=== PATIENT | female | born 1970 | race Caucasian/White ===

== ENCOUNTER 2018-01-12 03:02 | Emergency (ER) | payer OTHER ==
[2018-01-12] MEDS ORDERED: NA CHLORIDE 0.9% 1,000 ML ONE (04:20)
[2018-01-12 04:44] LABS: Absolute Lymphocytes (CBC) 2.2 K/uL (0.7-4.9); Absolute Monocytes 0.5 K/uL (0.1-1.3); Absolute Neutrophil 3.9 K/uL (1.8-8.0); Basophils % 0.8 % (0-1.3); Eosinophils % 0.1 % (0-4.4); Hematocrit 39.2 % (36.0-45.0); Lymphocytes % 33.4 % (15.3-44.8); MCH 26.3 pg (27.0-35.0); MCV 80.2 fL (80-100); MPV 7.7 fL (7.6-11.3); Monocytes % 7.5 % (3.3-12.3); RBC Red Blood Cell Count 4.89 M/uL (3.86-4.86)
[2018-01-12 04:47] LABS: Protime INR 0.94
[2018-01-12 04:50] LABS: Urine Blood NEGATIVE (NEG); Urine Glucose NEGATIVE (NEG); Urine Protein NEGATIVE (NEG); Urine Specific Gravity >1.030 (1.005-1.030); Urine pH 5.5 (5.0-7.0)
[2018-01-12 04:53] LABS: Bicarbonate 27 mEq/L (21-31); Glucose Level 87 mg/dL (65-120); Potassium 3.9 mEq/L (3.6-5.0); Sodium Level 135 mEq/L (135-145)
[2018-01-12 04:59] LABS: ALT/SGPT 24 IU/L (10-60); AST/SGOT 30 IU/L (10-42); Albumin 3.9 g/dL (3.2-5.5); Alkaline Phosphatase 93 IU/L (42-121); BUN Blood Urea Nitrogen 16 mg/dL (6-20); Bilirubin Direct < 0.1 mg/dL (0-0.2); Bilirubin Total 0.4 mg/dL (0.3-1.2); Creatine Phosphokinase 54 IU/L (22-269); Protein, Total 7.5 g/dL (6.0-8.3)
[2018-01-12 05:20] LABS: CKMB Creatine Kinase MB 1.1 ng/ml (0.3-4.0)
[2018-01-12 05:25] LABS: Anisocytosis 1+; Blood Morphology Comment NOTED (NOT SEEN); Platelet Estimate ADEQ; Urine White Blood Cell Casts OK
[2018-01-12] MEDS ORDERED: CEFTRIAXONE/SWI 1gm 1 GM/10 ML SYR ONE (05:35)
[2018-01-12 05:37] LABS: Lipase 21 U/L (22-51)
--- NOTE | 2018-01-12 07:25 | ER ---
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 Transition of care: patient was not received from another setting of care. Onset of symptoms was January 10, 2018. Risk Assessment: Do you want to hurt yourself or someone else? Patient reports no desire to harm self or others. Initial Sepsis Screen: Does the patient meet any 2 criteria? No. Patient's initial sepsis screen is negative. Does the patient have a suspected source of infection? No. Patient's initial sepsis screen is negative. Care prior to arrival: None. 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 - Social history:: Smoking status: Patient uses tobacco products, smokes one pack cigarettes per day. Patient/guardian denies using alcohol, street drugs. - Family history:: not pertinent. - Ebola Screening: : No symptoms or risks identified at this time. Screenin:16 Abuse screen: Denies threats or abuse. Denies injuries from another. Nutritional lp1 screening: No deficits noted. Tuberculosis screening: No symptoms or risk factors identified. Fall Risk None identified. Assessment: 03:30 General: Appears in no apparent distress. Behavior is calm, cooperative, appropriate lp1 for age. Pain: Complains of pain in right axilla Pain currently is 5 out of 10 on a pain scale. Neuro: Level of Consciousness is awake, alert, obeys commands, Oriented to person, place, time, situation. Cardiovascular: Patient's skin is warm and dry. Respiratory: Respiratory effort is even, unlabored. GI: Abdomen is non-distended. : No signs and/or symptoms were reported regarding the genitourinary system. EENT: No signs and/or symptoms were reported regarding the EENT system. Derm: Skin is pink, warm \\T\\ dry. Musculoskeletal: Circulation, motion, and sensation intact. 04:30 Reassessment: Patient appears in no apparent distress at this time. No changes from lp1 previously documented assessment. Patient and/or family updated on plan of care and expected duration. Pain level reassessed. 05:30 Reassessment: Patient appears in no apparent distress at this time. Patient is alert, lp1 oriented x 3, equal unlabored respirations, skin warm/dry/pink. Patient states pain when movement of right arm in certain motion Patient denies pain at this time. 06:30 Reassessment: Patient appears in no apparent distress at this time. No changes from lp1 previously documented assessment. Patient and/or family updated on plan of care and expected duration. Pain level reassessed. 07:15 Reassessment: Patient appears in no apparent distress at this time. Patient and/or hb family updated on plan of care and expected duration. Pain level reassessed. Patient is alert, oriented x 3, equal unlabored respirations, skin warm/dry/pink. Vital Signs: 03:27 BP 182 / 86; Pulse 63; Resp 18 S; Temp 97.1(O); Pulse Ox 97% on R/A; Weight 70.76 kg bb (R); Height 5 ft. 4 in. (162.56 cm) (R); Pain 4/10; 04:00 BP 144 / 69; Pulse 52; Resp 18; Pulse Ox 100% on R/A; lp1 05:00 BP 152 / 77; Pulse 57; Resp 18; Pulse Ox 99% on R/A; lp1 05:30 BP 144 / 75; Pulse 58; Resp 18; Pulse Ox 99% on R/A; lp1 06:38 BP 152 / 94; Pulse 52; Resp 18; Pulse Ox 100% ; lp1 07:30 BP 146 / 82; Pulse 50; Resp 16; Pulse Ox 100% on R/A; Pain 1/10; hb 03:27 Body Mass Index 26.78 (70.76 kg, 162.56 cm) bb ED Course: 03:04 Patient arrived in ED. es 03:25 Triage completed. bb 03:26 Donato Adams MD is Attending Physician. yara 03:27 Arm band placed on Patient placed in an exam room, on a stretcher, on pulse oximetry. bb 04:11 X-ray completed. Portable x-ray completed in exam room. Patient tolerated procedure kw well. 04:12 XRAY Chest (1 view) In Process Unspecified. EDMS 04:15 Hina Roach, RN is Primary Nurse. lp1 04:17 Patient has correct armband on for positive identification. Placed in gown. Pulse ox lp1 on. NIBP on. 04:30 Inserted saline lock: 22 gauge in left antecubital area, using aseptic technique. Blood lp1 collected. 05:53 CT Chest For PE Angio In Process Unspecified. EDMS 07:17 Valeria Banda MD is Referral Physician. yara 07:51 No provider procedures requiring assistance completed. IV discontinued, intact, hb bleeding controlled, No redness/swelling at site. Pressure dressing applied. Administered Medications: 04:34 Drug: NS 0.9% 1000 ml Route: IV; Rate: 1 bolus; Site: left antecubital; lp1 05:45 Follow up: IV Status: Completed infusion lp1 05:45 Drug: Rocephin - (cefTRIAXone) 1 grams Route: IVPB; Infused Over: 30 mins; Site: left lp1 antecubital; 06:30 Follow up: Response: No adverse reaction; IV Status: Completed infusion lp1 Outcome: 07:23 Discharge ordered by . yara 07:51 Discharged to home ambulatory. hb 07:51 Condition: stable 07:51 Discharge instructions given to patient, Instructed on discharge instructions, follow up and referral plans. medication usage, Demonstrated understanding of instructions, follow-up care, medications, Prescriptions given X 3. 07:56 Patient left the ED. hb Signatures: Dispatcher [employer] EDHI Donato Adams MD MD cha Salyer, Edna es Ballard, Brenda, RN RN Yesica Hawkins Laura, RN RN lp1 Malissa Mcguire, RN RN hb
--- NOTE | 2018-01-12 07:25 | EDPHYS ---
Physician Documentation [facility] Name: Nona Pond Age: 47 yrs Sex: Female : 1970 Arrival Date: 01/12/2018 Time: 03:04 Bed 20 Private MD: ED Physician Donato Adams HPI: 01/12 03:51 This 47 yrs old Female presents to ER via Ambulatory with complaints of PAIN yara UNDER ARM. 03:51 The patient or guardian reports chest pain that is located primarily in the substernal yara area. Onset: 2 day(s) ago. The pain does not radiate. Associated signs and symptoms: The patient has no apparent associated signs or symptoms. Modifying factors: The symptoms are alleviated by nothing. the symptoms are aggravated by nothing. Severity of pain: At its worst the pain was moderate. The patient has experienced similar episodes in the past, a few times. 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 - Social history:: Smoking status: Patient uses tobacco products, smokes one pack cigarettes per day. Patient/guardian denies using alcohol, street drugs. - Family history:: not pertinent. - Ebola Screening: : No symptoms or risks identified at this time. ROS: 03:51 Constitutional: Negative for fever, chills, and weight loss, Eyes: Negative for injury, yara pain, redness, and discharge, ENT: Negative for injury, pain, and discharge, Neck: Negative for injury, pain, and swelling, Respiratory: Negative for shortness of breath, cough, wheezing, and pleuritic chest pain, Abdomen/GI: Negative for abdominal pain, nausea, vomiting, diarrhea, and constipation, Back: Negative for injury and pain, : Negative for injury, bleeding, discharge, and swelling, MS/Extremity: Negative for injury and deformity, Skin: Negative for injury, rash, and discoloration, Neuro: Negative for headache, weakness, numbness, tingling, and seizure. 03:51 Cardiovascular: Positive for chest pain, of the right lateral posterior chest and right lateral anterior chest. Exam: 03:51 Constitutional: This is a well developed, well nourished patient who is awake, alert, yara and in no acute distress. Head/Face: Normocephalic, atraumatic. Eyes: Pupils equal round and reactive to light, extra-ocular motions intact. Lids and lashes normal. Conjunctiva and sclera are non-icteric and not injected. Cornea within normal limits. Periorbital areas with no swelling, redness, or edema. ENT: Nares patent. No nasal discharge, no septal abnormalities noted. Tympanic membranes are normal and external auditory canals are clear. Oropharynx with no redness, swelling, or masses, exudates, or evidence of obstruction, uvula midline. Mucous membranes moist. Neck: Trachea midline, no thyromegaly or masses palpated, and no cervical lymphadenopathy. Supple, full range of motion without nuchal rigidity, or vertebral point tenderness. No Meningismus. Cardiovascular: Regular rate and rhythm with a normal S1 and S2. No gallops, murmurs, or rubs. Normal PMI, no JVD. No pulse deficits. Respiratory: Lungs have equal breath sounds bilaterally, clear to auscultation and percussion. No rales, rhonchi or wheezes noted. No increased work of breathing, no retractions or nasal flaring. Abdomen/GI: Soft, non-tender, with normal bowel sounds. No distension or tympany. No guarding or rebound. No evidence of tenderness throughout. Back: No spinal tenderness. No costovertebral tenderness. Full range of motion. Skin: Warm, dry with normal turgor. Normal color with no rashes, no lesions, and no evidence of cellulitis. MS/ Extremity: Pulses equal, no cyanosis. Neurovascular intact. Full, normal range of motion. Neuro: Awake and alert, GCS 15, oriented to person, place, time, and situation. Cranial nerves II-XII grossly intact. Motor strength 5/5 in all extremities. Sensory grossly intact. Cerebellar exam normal. Normal gait. Psych: Awake, alert, with orientation to person, place and time. Behavior, mood, and affect are within normal limits. 03:51 Chest/axilla: Inspection: no acute changes, abrasion, abscess, cellulitis, of the right lateral posterior chest and right lateral anterior chest 03:54 Musculoskeletal/extremity: DVT Exam: No signs of deep vein thrombosis. no pain, no yara swelling, no tenderness, negative Homans' sign noted on exam, no appreciated bluish discoloration, no erythema, no increased warmth. Vital Signs: 03:27 BP 182 / 86; Pulse 63; Resp 18 S; Temp 97.1(O); Pulse Ox 97% on R/A; Weight 70.76 kg bb (R); Height 5 ft. 4 in. (162.56 cm) (R); Pain 4/10; 04:00 BP 144 / 69; Pulse 52; Resp 18; Pulse Ox 100% on R/A; lp1 05:00 BP 152 / 77; Pulse 57; Resp 18; Pulse Ox 99% on R/A; lp1 05:30 BP 144 / 75; Pulse 58; Resp 18; Pulse Ox 99% on R/A; lp1 06:38 BP 152 / 94; Pulse 52; Resp 18; Pulse Ox 100% ; lp1 07:30 BP 146 / 82; Pulse 50; Resp 16; Pulse Ox 100% on R/A; Pain 1/10; hb 03:27 Body Mass Index 26.78 (70.76 kg, 162.56 cm) bb MDM: 03:27 Patient medically screened. [facility] 03:53 Data reviewed: vital signs, nurses notes, lab test result(s), EKG, radiologic studies, [facility] CT scan, plain films. 01/12 03:50 Order name: Basic Metabolic Panel [facility] 01/12 03:50 Order name: BNP [facility] 01/12 03:50 Order name: CBC with Diff; Complete Time: 06:57 [facility] 01/12 03:50 Order name: Ckmb; Complete Time: 06:57 [facility] 01/12 03:50 Order name: CPK; Complete Time: 06:57 [facility] 01/12 03:50 Order name: LFT's; Complete Time: 06:57 [facility] 01/12 03:50 Order name: Magnesium; Complete Time: 06:57 [facility] 01/12 03:50 Order name: PT-INR; Complete Time: 05:23 [facility] 01/12 03:50 Order name: Ptt, Activated; Complete Time: 05:23 [facility] 01/12 03:50 Order name: Troponin (emerg Dept Use Only); Complete Time: 05:23 [facility] 01/12 03:50 Order name: Lipase; Complete Time: 06:57 [facility] 01/12 03:50 Order name: Urine Culture [facility] 01/12 03:50 Order name: Basic Metabolic Panel; Complete Time: 06:57 EDMS 01/12 03:50 Order name: BNP B-Type Natriuretic Peptide; Complete Time: 05:23 EDMS 01/12 03:50 Order name: XRAY Chest (1 view) [facility] 01/12 03:50 Order name: Cardiac monitoring; Complete Time: 04:26 [facility] 01/12 03:50 Order name: EKG - Nurse/Tech; Complete Time: 04:26 [facility] 01/12 03:50 Order name: IV Saline Lock; Complete Time: 04:49 [facility] 01/12 03:50 Order name: Labs collected and sent; Complete Time: 04:49 [facility] 01/12 03:50 Order name: O2 Per Protocol; Complete Time: 04:26 [facility] 01/12 03:50 Order name: O2 Sat Monitoring; Complete Time: 04:26 [facility] 01/12 03:50 Order name: Urine Dipstick-Ancillary (obtain specimen); Complete Time: 04:26 [facility] 01/12 03:50 Order name: CT Chest For PE Angio [facility] 01/12 04:43 Order name: Urine Dipstick--Ancillary (enter results); Complete Time: 05:23 [facility] 01/12 05:25 Order name: CBC Smear Scan; Complete Time: 06:57 EDMS Administered Medications: 04:34 Drug: NS 0.9% 1000 ml Route: IV; Rate: 1 bolus; Site: left antecubital; lp1 05:45 Follow up: IV Status: Completed infusion lp1 05:45 Drug: Rocephin - (cefTRIAXone) 1 grams Route: IVPB; Infused Over: 30 mins; Site: left lp1 antecubital; 06:30 Follow up: Response: No adverse reaction; IV Status: Completed infusion lp1 Disposition: 01/12/18 07:23 Discharged to Home. Impression: Intraductal carcinoma in situ of right breast - large mass, with right axillia anenopthy, Cystitis. - Condition is Stable. - Discharge Instructions: Dysuria, Ductal Carcinoma in Situ. - Prescriptions for Tylenol- Codeine #3 300-30 mg Oral Tablet - take 2 tablet by ORAL route every 6 hours As needed; 30 tablet. Zofran 4 mg Oral Tablet - take 1 tablet by ORAL route every 12 hours As needed; 20 tablet. Bactrim DS 800- 160 mg Oral Tablet - take 1 tablet by ORAL route every 12 hours for 7 days; 14 tablet. - Medication Reconciliation Form, Thank You Letter, Antibiotic Education, Prescription Opioid Use form. - Follow up: Private Physician; When: 2 - 3 days; Reason: Recheck today's complaints, Continuance of care, Re-evaluation by your physician. Follow up: Valeria Alvarez; When: 2 - 3 days; Reason: Recheck today's complaints, Re-evaluation by your physician. - Problem is new. - Symptoms have improved. Signatures: Dispatcher [employer] EDMS Donato Adams MD MD cha Ballard, Brenda, MINA RN bb Hina Roach RN RN lp1 Malissa Mcguire RN RN Corrections: (The following items were deleted from the chart) 07:56 07:23 01/12/2018 07:23 Discharged to Home. Impression: Intraductal carcinoma in situ of hb right breast - large mass, with right axillia anenopthy; Cystitis. Condition is Stable. Discharge Instructions: Ductal Carcinoma in Situ, Dysuria. Prescriptions for Tylenol-Codeine #3 300-30 mg Oral Tablet - take 2 tablet by ORAL route every 6 hours As needed; 30 tablet, Zofran 4 mg Oral Tablet - take 1 tablet by ORAL route every 12 hours As needed; 20 tablet, Bactrim DS 800-160 mg Oral Tablet - take 1 tablet by ORAL route every 12 hours for 7 days; 14 tablet. and Forms are Medication Reconciliation Form, Thank You Letter, Antibiotic Education, Prescription Opioid Use. Follow up: Private Physician; When: 2 - 3 days; Reason: Recheck today's complaints, Continuance of care, Re-evaluation by your physician. Follow up: Valeria Alvarez; When: 2 - 3 days; Reason: Recheck today's complaints, Re-evaluation by your physician. Problem is new. Symptoms have improved. yara
--- NOTE | 2018-01-12 09:00 | RAD REPORT ---
EXAM DESCRIPTION: RAD - Chest Single View - 01/12/2018 4:12 am CLINICAL HISTORY: Chest pain. COMPARISON: None. FINDINGS: Portable technique limits examination quality. The lungs are grossly clear. The heart is normal in size. No displaced fractures. IMPRESSION: No acute intrathoracic process suspected.
--- NOTE | 2018-01-12 09:22 | RAD REPORT ---
EXAM DESCRIPTION: CT - Chest For Pe Angio - 01/12/2018 5:54 am CLINICAL HISTORY: Chest pain. Recent diagnosis of breast carcinoma. COMPARISON: None. TECHNIQUE: CT angiogram of the pulmonary arteries was performed with MIP. All CT scans are performed using dose optimization technique as appropriate and may include automated exposure control or mA/KV adjustment according to patient size. FINDINGS: No evidence of pulmonary thromboembolism. No acute aortic finding demonstrated. The lungs are clear. No significant pericardial or pleural fluid. Small hiatal hernia. Several small paraesophageal lymph nodes are present. Enlarged right axillary lymph nodes are seen with large right breast mass laterally. IMPRESSION: No evidence of pulmonary thromboembolism. Large right breast mass with right axillary lymphadenopathy, correlating with recent history breast c ancer diagnosis.
--- NOTE | 2018-01-12 10:47 | EKG ---
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
== END 2018-01-12 07:56 | disposition home or self-care (01) ==
LOC: ER 03:02
DX: D05.11 Intraductal carcinoma in situ of right breast (principal); N30.90 Cystitis, unspecified without hematuria; E03.9 Hypothyroidism, unspecified; F17.210 Nicotine dependence, cigarettes, uncomplicated
CPT/HCPCS: 36415; 71045; 71275; 80048; 80076; 81003; 82550; 82553; 83690; 83735; 83880; 84484; 85025; 85610; 85730; 87086; 87088; 93005; 96361; 96365; 99284; J0696; J7030; Q9967

== ENCOUNTER 2018-06-10 07:33 | Day surgery (SDC) | payer MEDICAID ==
--- NOTE | 2018-06-09 13:23 | ECHO ---
HEIGHT: 5 ft 4 in WEIGHT: 145 lb 0 oz DATE OF STUDY: 06/09/[address]: Wilner Pope MD 2-DIMENSIONAL: YES M.MODE: YES DOPPLER: YES COLOR FLOW: YES TDS: NO PORTABLE: NO DEFINITY: NO BUBBLE STUDY: NO DIAGNOSIS: DIZZINESS, CHEST PAIN CARDIAC HISTORY: CATHERIZATION: NO SURGERY: NO PROSTHETIC VALVE: NO PACEMAKER: NO MEASUREMENTS (cm) DIASTOLIC (NORMALS) SYSTOLIC (NORMALS) IVSd 1.2 (0.6-1.2) LA Diam 4.0 (1.9-4.0) LVEF 62% LVIDd 5.8 (3.5-5.7) LVIDs 3.8 (2.0-3.5) %FS 34% LVPWd 1.3 (0.6-1.2) Ao Diam 3.2 (2.0-3.7) 2 DIMENSIONAL ASSESSMENT: RIGHT ATRIUM: NORMAL LEFT ATRIUM: NORAML RIGHT VENTRICLE: NORMAL LEFT VENTRICLE: NORMAL TRICUSPID VALVE: NORMAL MITRAL VALVE: NORMAL PULMONIC VALVE: NORMAL AORTIC VALVE: NORMAL PERICARDIAL EFFUSION: NONE AORTIC ROOT: NORMAL LEFT VENTRICULAR WALL MOTION: NORMAL DOPPLER/COLOR FLOW: MILD TRICUSPID REGURGITATION. COMMENTS: MILD TRICUSPID REGURGITATION. NORMAL LEFT VENTRICULAR SIZE AND FUNCTION. NO WALL MOTION ABNORMALITY. NO EFFUSION. TECHNOLOGIST: Dheeraj POWELL
[2018-06-09 13:46] LABS: Absolute Monocytes 0.9 K/uL (0.1-1.3); Absolute Neutrophil 13.7 K/uL (1.8-8.0); Basophils % 0.7 % (0-1.3); Eosinophils % 1.9 % (0-4.4); Hematocrit 36.9 % (36.0-45.0); Lymphocytes % 11.9 % (15.3-44.8); MCH 32.7 pg (27.0-35.0); MCV 94.6 fL (80-100); MPV 7.3 fL (7.6-11.3); Monocytes % 5.3 % (3.3-12.3)
[2018-06-09 14:09] LABS: Potassium 4.9 mmol/L (3.5-5.1)
--- NOTE | 2018-06-09 14:30 | RAD REPORT ---
EXAM DESCRIPTION: Gutierrez Ramsay (2 Views)06/09/2018 2:13 pm CLINICAL HISTORY: Breast cancer COMPARISON: December 2017 FINDINGS: The lungs appear clear of acute infiltrate. The heart is normal size IMPRESSION: No acute abnormalities displayed
[2018-06-10] MEDS ORDERED: CEFAZOLIN/SWI 1gm 1 GM/10 ML SYR ONE (08:13)
[2018-06-10] MEDS: Ringers Lactate 1,000 ML IV ONE ×3 (08:18→12:00)
[2018-06-10] MEDS ORDERED: ROCURONIUM 50 MG/5 ML VIAL IV ONE (08:43)
[2018-06-10] MEDS ORDERED: PROPOFOL 200 MG/20 ML VIAL IV ONE (08:43)
[2018-06-10] MEDS ORDERED: FENTANYL CITR 250 MCG/5 ML ONE ×2 (08:43→11:45)
[2018-06-10] MEDS ORDERED: MIDAZOLAM HCL 2 MG/2 ML INJ ONE (08:43)
[2018-06-10] MEDS ORDERED: LIDOCAINE 1% MPF 5 ML VIAL ONE (08:43)
[2018-06-10] MEDS ORDERED: EPHEDRINE SULF 50 MG/10 ML SYR ONE (09:20)
[2018-06-10] MEDS ORDERED: GLYCOPYRROLATE 0.2 MG/ML SYR ONE (11:46)
[2018-06-10] MEDS ORDERED: KETOROLAC 30 MG/ML INJ ONE (11:46)
[2018-06-10] MEDS ORDERED: DEXAMETHASONE 10 MG/ML VIAL ONE (11:46)
[2018-06-10] MEDS ORDERED: ONDANSETRON HCL 40 MG/20 ML VIAL ONE (11:49)
[2018-06-10] MEDS ORDERED: NEOSTIGMINE 1 MG/ML -5 ML SYRINGE ONE (11:49)
[2018-06-10] MEDS: MEPERIDINE HCL 50 MG/ML AMP ONE ×2 (12:20→12:25)
[2018-06-10] MEDS ORDERED: SUCCINYLCHOLINE 20 MG/ML (10 ML) IV ONE (12:39)
[2018-06-10] MEDS ORDERED: HYDROCODONE/APAP 7.5/325 MG TAB ONE (14:01)
--- NOTE | 2018-06-11 00:58 | OP ---
Date of Procedure: 06/10/2018 Surgeon: Wilner Pope MD Infrastructure Security Architect: MAHNAZ Corrales. Preoperative Diagnosis: Right breast cancer. Postoperative Diagnosis: Right breast cancer. Procedure: Right modified radical mastectomy and left simple mastectomy. Estimated Blood Loss: Minimal. Specimen: Left breast, this was a prophylactic mastectomy. The right breast has a tumor. The shahriar ns were clear and axillary dissection. Findings: As above. Anesthesia: General. Drains: ELMA #10, 1 on the left, 2 on the right. Complications: None. Disposition: The patient tolerated the procedure in stable condition and taken to recovery room in g ood general condition. Procedure In Detail: The patient was brought to the OR and placed in supine position. General anest hesia was begun. The patient was prepped and draped in usual sterile fashion. Then, a 15-blade was used to make an elliptical skin incision on the left breast first. Subcutaneous tissue was divided. Flaps created. The incision was approximately 30 x 20 cm. The patient has very large breasts and t hen flaps created superiorly to the infundibulum and medially to the sternal border and inferiorly to the insertion of the rectus abdominis muscle, laterally to the anterior border of the latissimus mario si muscle, and all breast tissue off the pectoralis fascia removed, sent to pathology after being don ropriately labeled. Entire wound irrigated. Bleeding controlled with cautery and then Salas-Duvall drain #10 flat placed and secured with 3-0 nylon and then 2-0 chromic and 3-0 chromic used to reappr oximate and close the wound and then this area was covered. New instruments and entire gonzalez crew yara nged into a new gown and gloves and subsequently similar type incision approximately 30 x 20 cm, lyle ptical in nature was made. Flaps were created superiorly to the clavicle, inferiorly to the insertio n of the rectus abdominis muscle, medially to the sternal border, laterally to the latissimus dorsi, and all breast tissue was removed after being off the pectoralis fascia and sent to pathology where f rozen section revealed completely negative margin of the cancer. Then, an axillary dissection procee ded through the same wound. Axillary vein was identified and then the Macario's lymph nodes were diss ected. Clips were used as needed. A 3-0 silk ties were used as needed and the lymph nodes below the axillary vein and between the long thoracic neurovascular bundle and thoracodorsal neurovascular bun dle were dissected down and sent to pathology separately. Entire wound irrigated. Bleeding controll ed with cautery and then 2 Salas-Duvall drain, 1 under the flap, 1 in the axilla were placed, secure d with 3-0 nylon and then 2-0 chromic and 3-0 chromic were used similarly to close the wound and then a sterile dressing was applied. The patient was awakened and taken to recovery room in good general condition. Discharge Note: The patient will go to day surgery and home when stable Disposition: Home. Condition: Stable. Discharge Instructions: Resume home medications and diet. Activity as tolerated. No heavy lifting. Keep dressing clean and dry. Follow up in my office in a week. Call for appointment. Record ELMA o utput q.12 hours and bring record to office. Tylenol No.3 one tablet p.o. q.4 p.r.n. pain, Keflex 500 mg p .o. q.6. /MODL Voice ID: [id number] Report ID: [id number]
== END 2018-06-10 16:55 | disposition home or self-care (01) ==
LOC: OR 07:33
PROVIDERS: ATTEND Surgery
PROC: 0HTT0ZZ Resection of Right Breast, Open Approach (ICD-10-PCS; principal; 2018-06-10 08:45)
PROC: 0HTU0ZZ Resection of Left Breast, Open Approach (ICD-10-PCS; 2018-06-10 08:45)
DX: C50.911 Malignant neoplasm of unspecified site of right female breast (principal); C77.3 Secondary and unspecified malignant neoplasm of axilla and upper limb lymph nodes; Z17.1 Estrogen receptor negative status [ER-]; F17.200 Nicotine dependence, unspecified, uncomplicated; Z83.3 Family history of diabetes mellitus
CPT/HCPCS: 36415; 71046; 80048; 84703; 85025; 88305; 88307; 93005; J0330; J0690; J1100; J2175; J2250; J2405; J2710

== ENCOUNTER 2019-06-08 10:19 | Emergency (ER) | payer MEDICAID ==
--- NOTE | 2019-06-08 12:07 | ER ---
Nurse's Notes [facility] Name: Nona Nair Age: 49 yrs Sex: Female : 1970 Arrival Date: 06/08/2019 Time: 10:23 Bed 10 Private MD: Diagnosis: Fall on same level from slipping, tripping and stumbling;Pain in left hip Presentation: 06/08 10:25 Presenting complaint: Patient states: fell yesterday evening, tripped over power cord iw at work, now has left hip pain today, pt states she fell onto left knee then onto left side, denies hitting head or LOC. Care prior to arrival: None. Mechanism of Injury: Fall. Trauma event details: Injury occurred in the [facility]. 10:25 Acuity: ESTELA 4 iw 10:25 Method Of Arrival: Ambulatory iw 10:27 Transition of care: patient was not received from another setting of care. Onset of iw symptoms was June 07, 2019. Risk Assessment: Do you want to hurt yourself or someone else? Patient reports no desire to harm self or others. Initial Sepsis Screen: Does the patient meet any 2 criteria? No. Patient's initial sepsis screen is negative. Does the patient have a suspected source of infection? No. Patient's initial sepsis screen is negative. Triage Assessment: 12:00 General: Appears in no apparent distress. Behavior is calm. 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 - iw Trauma Activation: Not Applicable Physician: ED Physician; Name: ; Notified At: ; Arrived At: Physician: General Surgeon; Name: ; Notified At: ; Arrived At: Physician: Radiology; Name: ; Notified At: ; Arrived At: Physician: Respiratory; Name: ; Notified At: ; Arrived At: Physician: Lab; Name: ; Notified At: ; Arrived At: Historical: - Allergies: 10:28 No Known Allergies; iw - Home Meds: 10:28 Tramadol Oral [Active]; levothyroxine oral once daily [Active]; iw - PMHx: 10:28 HYDRONEPHROSIS; Hypothyroidism; breast cancer; iw - PSHx: 10:28 Tubal ligation; kidney surgery x 2; Mastectomy, Left; Mastectomy, Right; iw - Immunization history:: Adult Immunizations. - Social history:: Smoking status: Patient uses tobacco products, smokes one pack cigarettes per day. - Ebola Screening: : Patient negative for fever greater than or equal to 101.5 degrees Fahrenheit, and additional compatible Ebola Virus Disease symptoms Patient denies exposure to infectious person Patient denies travel to an Ebola-affected area in the 21 days before illness onset No symptoms or risks identified at this time. Screenin:14 Abuse screen: Denies threats or abuse. Denies injuries from another. Nutritional iw screening: No deficits noted. Tuberculosis screening: No symptoms or risk factors identified. Fall Risk None identified. Assessment: 10:45 General: Appears in no apparent distress. Behavior is calm, cooperative. Pain: iw Complains of pain in pelvis and left hip. Neuro: Level of Consciousness is awake, alert, obeys commands, Oriented to person, place, time, situation, Moves all extremities. Full function. Cardiovascular: Patient's skin is warm and dry. Respiratory: Respiratory effort is even, unlabored, Respiratory pattern is regular, agonal. GI: No signs and/or symptoms were reported involving the gastrointestinal system. Derm: Skin is intact, is healthy with good turgor. Musculoskeletal: Range of motion: intact in all extremities. Vital Signs: 10:26 BP 135 / 87; Pulse 57; Resp 16; Temp 98.2; Pulse Ox 100% on R/A; Weight 53.52 kg; iw Height 5 ft. 4 in. (162.56 cm); Pain 8/10; 10:26 Body Mass Index 20.25 (53.52 kg, 162.56 cm) iw ED Course: 10:23 Patient arrived in ED. mr 10:26 Triage completed. iw 10:29 Rebecca Marina [facility]C [facility]. kb 10:29 Armond Sharma MD is Attending Physician. kb 10:29 Arm band placed on. iw 10:45 Patient has correct armband on for positive identification. iw 11:46 Hip Left 2 View XRAY In Process Unspecified. EDMS 11:46 Pelvis XRAY In Process Unspecified. EDMS 11:51 Carol Ramirez, RN is Primary Nurse. iw 12:14 No provider procedures requiring assistance completed. Patient did not have IV access iw during this emergency room visit. Administered Medications: No medications were administered Outcome: 12:06 Discharge ordered by . kb 12:14 Discharged to home ambulatory. iw 12:14 Condition: good 12:14 Discharge instructions given to patient, Instructed on discharge instructions, follow up and referral plans. Demonstrated understanding of instructions, follow-up care, medications, Prescriptions given X 2. 12:15 Patient left the ED. aa5 Signatures: Dispatcher [employer] EDRebecca Mora, FLORIDALMA YOUNGBLOODP-Jerri Allen Irene, MINA ENRIQUEZ iw Soledad Mohr RN RN aa5
--- NOTE | 2019-06-08 12:08 | RAD REPORT ---
EXAM DESCRIPTION: RAD - Hip Left 2 View - 06/08/2019 11:45 am CLINICAL HISTORY: Trip and fall, left pelvic pain COMPARISON: None. FINDINGS: AP and frogleg views of the left hip were obtained. There is no fracture or dislocation. N o acute or destructive bony process seen. Degenerative change and bony hypertrophy are present along the superior acetabular rim. No AVN or focal femoral head abnormality. Femoral head maintains smooth rounded contour. No soft tissue abnormality. IMPRESSION: Left hip joint degenerative changes are present. No fracture or acute finding identified .
--- NOTE | 2019-06-08 12:08 | RAD REPORT ---
EXAM DESCRIPTION: RAD - Pelvis - 06/08/2019 11:45 am CLINICAL HISTORY: Fall, pelvic pain, left hip pain COMPARISON: None. TECHNIQUE: AP imaging of the pelvis was obtained. FINDINGS: No significant finding on limited assessment of the lumbar spine. No fracture of the bony pelvis identified. SI joint and pubic symphysis show no significant finding. No fracture or dislocati on of either proximal femur. Degenerative changes present along the superior aspect of each acetabula r rim. No periarticular finding. No suspicious soft tissue finding. IMPRESSION: No fracture the bony pelvis. Bilateral hip joint degenerative change with no acute proximal femur finding.
--- NOTE | 2019-06-08 12:08 | EDPHYS ---
Physician Documentation [facility] Name: Nona Nair Age: 49 yrs Sex: Female : 1970 Arrival Date: 06/08/2019 Time: 10:23 Bed 10 Private MD: ED Physician Armond Sharma HPI: 06/08 11:45 This 49 yrs old Female presents to ER via Ambulatory with complaints of Fall kb Injury. 11:45 Details of fall: The patient fell from an upright position, while walking, tripped over kb extension cord. Onset: The symptoms/episode began/occurred yesterday. Associated injuries: The patient sustained left hip, painful injury, swelling. Severity of symptoms: At their worst the symptoms were moderate, in the emergency department the symptoms are unchanged. The patient has not experienced similar symptoms in the past. The patient has not recently seen a physician. 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 - Social history:: Smoking status: Patient uses tobacco products, smokes one pack cigarettes per day. - Ebola Screening: : Patient negative for fever greater than or equal to 101.5 degrees Fahrenheit, and additional compatible Ebola Virus Disease symptoms Patient denies exposure to infectious person Patient denies travel to an Ebola-affected area in the 21 days before illness onset No symptoms or risks identified at this time. ROS: 11:38 Constitutional: Negative for fever, chills, and weight loss, Cardiovascular: Negative kb for chest pain, palpitations, and edema, Respiratory: Negative for shortness of breath, cough, wheezing, and pleuritic chest pain, Abdomen/GI: Negative for abdominal pain, nausea, vomiting, diarrhea, and constipation, Back: Negative for injury and pain, : Negative for injury, bleeding, discharge, and swelling, Skin: Negative for injury, rash, and discoloration, Neuro: Negative for headache, weakness, numbness, tingling, and seizure. 11:38 MS/extremity: Positive for pain, swelling, tenderness, of the left hip. Exam: 11:41 Constitutional: This is a well developed, well nourished patient who is awake, alert, kb and in no acute distress. Head/Face: Normocephalic, atraumatic. Chest/axilla: Normal chest wall appearance and motion. Nontender with no deformity. No lesions are appreciated. Cardiovascular: Regular rate and rhythm with a normal S1 and S2. No gallops, murmurs, or rubs. Normal PMI, no JVD. No pulse deficits. Respiratory: Lungs have equal breath sounds bilaterally, clear to auscultation and percussion. No rales, rhonchi or wheezes noted. No increased work of breathing, no retractions or nasal flaring. Abdomen/GI: Soft, non-tender, with normal bowel sounds. No distension or tympany. No guarding or rebound. No evidence of tenderness throughout. Skin: Warm, dry with normal turgor. Normal color with no rashes, no lesions, and no evidence of cellulitis. Neuro: Awake and alert, GCS 15, oriented to person, place, time, and situation. Cranial nerves II-XII grossly intact. Motor strength 5/5 in all extremities. Sensory grossly intact. Cerebellar exam normal. Normal gait. 11:41 Musculoskeletal/extremity: Extremities: grossly normal except: noted in the left hip: pain, swelling, tenderness, ROM: intact in all extremities, Circulation is intact in all extremities. Sensation intact. Weight bearing: able to fully bear weight. Vital Signs: 10:26 BP 135 / 87; Pulse 57; Resp 16; Temp 98.2; Pulse Ox 100% on R/A; Weight 53.52 kg; iw Height 5 ft. 4 in. (162.56 cm); Pain 8/10; 10:26 Body Mass Index 20.25 (53.52 kg, 162.56 cm) iw MDM: 10:30 Patient medically screened. kb 11:37 Data reviewed: vital signs, nurses notes. Data interpreted: Pulse oximetry: on room air kb is 100 %. Interpretation: normal. 12:02 Test interpretation: by ED physician or midlevel provider: plain radiologic studies, kb neg for fracture. Counseling: I had a detailed discussion with the patient and/or guardian regarding: the historical points, exam findings, and any diagnostic results supporting the discharge/admit diagnosis, radiology results, the need for outpatient follow up, a family practitioner, to return to the emergency department if symptoms worsen or persist or if there are any questions or concerns that arise at home. 06/08 10:29 Order name: Hip Left 2 View XRAY; Complete Time: 12:12 kb 06/08 10:29 Order name: Pelvis XRAY; Complete Time: 12:12 kb Administered Medications: No medications were administered Disposition: 06/08/19 12:06 Discharged to Home. Impression: Fall on same level from slipping, tripping and stumbling, Pain in left hip. - Condition is Stable. - Discharge Instructions: Hip Pain. - Prescriptions for Skelaxin 800 mg Oral Tablet - take 1 tablet by ORAL route every 8 hours As needed; 21 tablet. Diclofenac Sodium 75 mg Oral Tablet, Delayed Release (E.C.) - take 1 tablet by ORAL route 2 times per day As needed; 30 tablet. - Medication Reconciliation Form, Thank You Letter, Antibiotic Education, Prescription Opioid Use, Work release form form. - Follow up: Emergency Department; When: As needed; Reason: Worsening of condition. Follow up: Private Physician; When: 2 - 3 days; Reason: Recheck today's complaints, Continuance of care, Re-evaluation by your physician. Addendum: 06/09/2019 15:16 Co-signature as Attending Physician, Armond Sharma MD. g s Signatures: Dispatcher [employer] EDMS Rebecca Marina, IMAGE PROCESSING ENGINEER-C IMAGE PROCESSING ENGINEER-Ckb Carol Ramirez RN RN Soledad Mohr RN RN aa5 Armond Sharma MD MD Corrections: (The following items were deleted from the chart) 06/08 12:15 12:06 06/08/2019 12:06 Discharged to Home. Impression: Fall on same level from aa5 slipping, tripping and stumbling; Pain in left hip. Condition is Stable. Forms are Medication Reconciliation Form, Thank You Letter, Antibiotic Education, Prescription Opioid Use. Follow up: Emergency Department; When: As needed; Reason: Worsening of condition. Follow up: Private Physician; When: 2 - 3 days; Reason: Recheck today's complaints, Continuance of care, Re-evaluation by your physician. kb
[2019-06-08 12:35] VITALS: BP 135/87; TEMP 98.2; O2SAT 100
== END 2019-06-08 12:15 | disposition home or self-care (01) ==
LOC: ER 10:19
DX: M25.552 Pain in left hip (principal); W18.09XA Striking against other object with subsequent fall, initial encounter; Y93.01 Activity, walking, marching and hiking; Y92.9 Unspecified place or not applicable; F17.210 Nicotine dependence, cigarettes, uncomplicated; E03.9 Hypothyroidism, unspecified; Z85.3 Personal history of malignant neoplasm of breast; Z90.13 Acquired absence of bilateral breasts and nipples
CPT/HCPCS: 72170; 99283

== ENCOUNTER 2023-07-17 13:11 | Emergency (ER) | payer SELFPAY ==
--- OUTSIDE RECORDS SUMMARY | 2023-07-17 13:17 | XMS REPORT | Continuity of Care Document ---
:1970 Author Organization [facility] t Address [address] [place] [id number] Care Team Providers Name Role Phone RAFAEL Espinoza [facility], [facility] Primary Care P hysician Unavailable CatELISA Cervantes Eloise Attending Clinician FAUSTO BAUER Attending Clinician Unavailable Provider, [facility] Attending Clinician Unavailable Doctor Unassigned, [place] Attending Clinician Unavailable Caroline Lee RN Attending Clinician Unavailable CASSIA RUIZ Attending Clinician Unavailable Cassia Ellis Attending Clinician Unknown, Attending Attending Clinician Unavailable Concha Velarde MD Attending Clinician Derik Espino MD Attending Clinician DERIK ESPINO JR Attending Clinician Unavailable AIRAM ROJAS Attending Clinician Unavailable Airam Rojas MD Attending Clinician MAVIS GUZMAN Attending Clinician Unavailable MAVIS GUZMAN Attending Clinician Unavailable Zarina Lawrence DO Attending Clinician Mavis Guzman DO Attending Clinician CARLOS SEWELL Attending Clinician Unavailable Only, Adc Test Attending Clinician Unavailable Alex Franz MD Attending Clinician Hipolito Hernandez MD Attending Clinician HIPOLITO HERNANDEZ Attending Clinician Unavailable HIPOLITO HERNANDEZ Attending Clinician Unavailable Motility, Endoscopy Attending Clinician Unavailable Josep Strauss MD Attending Clinician JOSEP STRAUSS Attending Clinician Unavailable Markus Xavier Attending Clinician MARKUS CARR Attending Clinician Unavailable Carlos Day Attending Clinician [phone] MARIBEL KWONG Attending Clinician Unavailable Only, Lcc Test Attending Clinician Unavailable Maribel Kwong MD Attending Clinician Nolan Mcgee Attending Clinician NOLAN HAYWOOD Attending Clinician Unavailable DERIK ESPINO JR Admitting Clinician Unavailable Srinivas Domínguez MD, Abelardo Admitting Clinician AIRAM ROJAS Admitting Clinician Unavailable Airam Rojas MD Admitting Clinician Hipolito Hernandez MD Admitting Clinician HIPOLITO HERNANDEZ Admitting Clinician Unavailable MARKUS CARR Admitting Clinician Unavailable MARIBEL KWONG Admitting Clinician Unavailable NOLAN HAYWOOD Admitting Clinician Unavailable Payers Payer Name Policy Type Policy Number Effective Date Expiration Date S ource Problems Condition Condition Condition Status Onset Resolution Last Treating Co mments Source Name Details Category Date Date Treatment Clinician Date Dehydratio Dehydratio Disease Active U nivers n n 6-05 ity of 00:00: [place] 00 Medical Branch Hiatal Hiatal Disease Active Overview: Univer s hernia hernia 11-20 Formattin ity of 00:00: g of this [place] 00 note Medical might be Branch different from the original. Added automatic ally from request for surgery [id number] Gastroesop Gastroesop Disease Active Overview : Univers hageal hageal 11-20 Formattin ity of reflux reflux 00:00: g of this [place] disease, disease, 00 note Medica l unspecifie unspecifie might be Branch d whether d whether different esophagiti esophagiti from the s present s present original. Added automatic ally from request for surgery [id number] Current Current Disease Active Univers every day every day 3-05 ity of smoker smoker 00:00: [place] 00 Medical Branch Abdominal Abdominal Disease Active Overview: Univers pain, pain, 2- Formattin ity of epigastric epigastric 00:00: g of this [place] 00 note Medical might be Branch different from the original. Added automatic ally from request for surgery [id number] Esophageal Esophageal Disease Active Overview : Univers dysphagia dysphagia 2- Formattin i ty of 00:00: g of this [place] 00 note Medical might be Branch different from the original. Added automatic ally from request for surgery [id number] Vomiting Vomiting Disease Active Overview: Un mily without without 2- Formattin ity o f nausea, nausea, 00:00: g of this [place] intractabi intractabi 00 note Me dical lity of lity of might be Branch vomiting vomiting different not not from the specified, specified, original. unspecifie unspecifie Added d vomiting d vomiting automatic type type ally from request for surgery [id number] History of History of Disease Active Overview : Univers esophageal esophageal 2- Formattin ity of stricture stricture 00:00: g of this [place] 00 note Medical might be Branch different from the original. Added automatic ally from request for surgery [id number] Heartburn Heartburn Disease Active Overview: Univers 2-01 Formattin ity of 00:00: g of this [place] 00 note Medical might be Branch different from the original. Added automatic ally from request for surgery [id number] Loss of Loss of Disease Active Overview: Univ ers weight weight 2- Formattin ity of 00:00: g of this [place] 00 note Medical might be Branch different from the original. Added automatic ally from request for surgery [id number] Allergies, Adverse Reactions, Alerts Allergy Allergy Status Severity Reaction(s) Onset Inactive Treating Comm ents Source Name Type Date Date Clinician [place] - Propensi Active Intraven ty to 6-28 ous adverse 00:00: reaction 00 to drug NO KNOWN Drug Active Univers ALLERGIE Class ity of S [facility] Social History Social Habit Start Date Stop Date Quantity Comments Source History of tobacco Cigarette Smoker University of use [facility] History [facility] o f Alcohol Frequency [facility] Branch History [facility] o f Alcohol Std Drinks [facility] History [facility] o f Alcohol Binge [facility] Branch Exposure to 2022-10-08 2022-10-18 Not sure University of SARS-CoV-2 (event) 00:00:00 11:08:00 [facility] Alcohol intake 2022-10-18 2022-10-18 .14 /d University of 00:00:00 00:00:00 [facility] Cigarettes smoked 2021-02-27 2021-02-27 Univers ity of current (pack per 00:00:00 00:00:00 [facility] ed) - Reported Branch Tobacco use and 2021-02-27 2021-02-27 Smokeless Universit y of exposure 00:00:00 00:00:00 tobacco non-user [facility] dical [place] Cigarette 2021-02-27 2021-02-27 University of pack-years 00:00:00 00:00:00 [facility] Alcohol Comment 2021-02-27 2021-02-27 On social events Uni versity of 00:00:00 00:00:00 [facility] [birth year] Universit y of 00:00:00 00:00:00 [facility] Smoking Status Start Date Stop Date Source Smokes tobacco daily 2021-02-27 00:00:00 Univers ity of [facility] Medications Ordered Filled Start Stop Current Ordering Indication Dosage Frequency Signature Comments Components Source Medication Medication Date Date Medication? Clinician (SIG) Name Name azelastine Yes [id number] 1{spray Use 1 Univers 137 mcg 2-26 } [place] in ity of (0.1 %) 00:00: each [place] nasal spray 00 nostril in [facility] morning and 1 [place] in the evening. Use in each nostril as directed levocetiriz Yes [id number] 5mg Take 1 Univers ine 5 mg 2-26 tablet by ity of tablet 00:00: mouth [place] [address] every Medical evening. Branch azelastine Yes [id number] 1{spray Use 1 Univers 137 mcg 2-26 } [place] ity of (0.1 %) 00:00: each [place] nasal spray 00 nostril in [facility] morning and 1 [place] in the evening. Use in each nostril as directed levocetiriz 3-0 Yes [id number] 5mg Take 1 Univers ine 5 mg 2-26 tablet by ity of tablet 00:00: mouth [place] 00 every Medical evening. Branch azelastine 2022-0 Yes [id number] 1{spray Use 1 Univers 137 mcg 2-26 } [place] ity of (0.1 %) 00:00: each [place] nasal spray 00 nostril in [facility] [place] morning and 1 [place] in the evening. Use in each nostril as directed levocetiriz 3-0 Yes [id number] 5mg Take 1 Univers ine 5 mg 2-26 tablet by ity of tablet 00:00: mouth [place] 00 every Medical evening. Branch azelastine 2022-0 Yes [id number] 1{spray Use 1 Univers 137 mcg 2-26 } [place] ity of (0.1 %) 00:00: each [place] nasal spray 00 nostril in [facility] morning and 1 [place] in the evening. Use in each nostril as directed levocetiriz 2022-0 Yes [id number] 5mg Take 1 Univers ine 5 mg 2-26 tablet by ity of tablet 00:00: mouth [place] 00 every Medical evening. Branch azelastine 2022-0 Yes [id number] 1{spray Use 1 Univers 137 mcg 2-26 } [place] ity of (0.1 %) 00:00: each [place] nasal spray 00 nostril in [facility] morning and 1 [place] in the evening. Use in each nostril as directed levocetiriz 3-0 Yes [id number] 5mg Take 1 Univers ine 5 mg 2-26 tablet by ity of tablet 00:00: mouth [place] 00 every Medical evening. Branch azelastine 3-0 Yes [id number] 1{spray Use 1 Univers 137 mcg 2-26 } [place] ity of (0.1 %) 00:00: each [place] nasal spray 00 nostril in [facility] [place] morning and 1 [place] in the evening. Use in each nostril as directed levocetiriz 3-0 Yes [id number] 5mg Take 1 Univers ine 5 mg 2-26 tablet by ity of tablet 00:00: mouth [place] 00 every Medical evening. Branch benzonatate 3-0 2023- No [id number] 100mg Take 1 Univers 100 mg 2-26 03-06 capsule by ity of capsule 00:00: 05:59 mouth 3 [place] 00 :00 (three) Medical times Branch daily as needed for Cough for up to 7 days. benzonatate 2022-0 2022- No [id number] 100mg Take 1 Univers 100 mg 2-26 03-06 capsule by ity of capsule 00:00: 05:59 mouth 3 [place] 00 :00 (three) Medical times Branch daily as needed for Cough for up to 7 days. benzonatate 2022-0 2022- No [id number] 100mg Take 1 Univers 100 mg 2-26 03-06 capsule by ity of capsule 00:00: 05:59 mouth 3 [place] 00 :00 (three) Medical times Branch daily as needed for Cough for up to 7 days. benzonatate 2022-0 2022- No [id number] 100mg Take 1 Univers 100 mg 2- 03-06 capsule by ity of capsule 00:00: 05:59 mouth 3 [place] 00 :00 (three) Medical times Branch daily as needed for Cough for up to 7 days. benzonatate 2022-0 2022- No [id number] 100mg Take 1 Univers 100 mg 2- 03-06 capsule by ity of capsule 00:00: 05:59 mouth 3 [place] 00 :00 (three) Medical times Branch daily as needed for Cough for up to 7 days. TAKE 2021-1 No TABLET 1-18 DAILY. 00:00: 00 Dose 2021-0 No Unknown 7-01 00:00: 00 TAKE 1 2021-0 No TABLET 7-01 DAILY. 00:00: 00 TAKE 1 2021-0 No 50 CAPSULE 6-28 EVERY 8 00:00: HOURS 00 NEEDED FOR ANXIETY. TAKE 1 2021-0 No 175 TABLET 6-28 DAILY. 00:00: 00 TAKE 1 2021-0 No 50 CAPSULE 6-28 EVERY 8 00:00: HOURS 00 NEEDED FOR ANXIETY. TAKE 1 2021-0 No 50 CAPSULE 6-28 EVERY 8 00:00: HOURS 00 NEEDED FOR ANXIETY. TAKE 1 2021-0 No CAPSULE 6-28 EVERY 8 00:00: HOURS 00 NEEDED FOR ANXIETY. TAKE 1 2021-0 No TABLET 6-28 DAILY. 00:00: 00 TAKE 1 2021-0 No CAPSULE 6-28 EVERY 8 00:00: HOURS 00 NEEDED FOR ANXIETY. TAKE 1 2021-0 No CAPSULE 6-28 EVERY 8 00:00: HOURS 00 NEEDED FOR ANXIETY. TAKE 1 2021-0 No 50 CAPSULE 6-28 EVERY 8 00:00: HOURS 00 NEEDED FOR ANXIETY. TAKE 1 2021-0 No 175 TABLET 6-28 DAILY. 00:00: 00 TAKE 1 2021-0 No 50 CAPSULE 6-28 EVERY 8 00:00: HOURS 00 NEEDED FOR ANXIETY. TAKE 1 2021-0 No 50 CAPSULE 6-28 EVERY 8 00:00: HOURS 00 NEEDED FOR ANXIETY. naproxen Yes Take by Univer s sodium 5-25 mouth. ity of (ALEVE 12:28: [place] ORAL) Medical Branch naproxen Yes Take by Univer s sodium 5-25 mouth. ity of (ALEVE 12:28: [place] ORAL) Medical Branch naproxen Yes Take by Univer s sodium 5-25 mouth. ity of (ALEVE 12:28: [place] ORAL) Medical Branch naproxen Yes Take by Univer s sodium 5-25 mouth. ity of (ALEVE 12:28: [place] ORAL) 00 Medical Branch naproxen Yes Take by Univer s sodium 5-25 mouth. ity of (ALEVE 12:28: [place] ORAL) Medical Branch naproxen Yes Take by Univer s sodium 5-25 mouth. ity of (ALEVE 12:28: [place] ORAL) 00 Medical Branch naproxen Yes Take by Univer s sodium 5-25 mouth. ity of (ALEVE 12:28: [place] ORAL) Medical Branch naproxen Yes Take by Univer s sodium 5-25 mouth. ity of (ALEVE 12:28: [place] ORAL) 00 Medical Branch naproxen Yes Take by Univer s sodium 5-25 mouth. ity of (ALEVE 12:28: [place] ORAL) Medical Branch naproxen Yes Take by Univer s sodium 5-25 mouth. ity of (ALEVE 12:28: [place] ORAL) 00 Medical Branch simethicone 2021- No [id number] 250mg Take 250 Univers 250 mg Cap 5-25 06-25 mg by sherrie of 00:00: 04:59 mouth [place] 00 :00 before Medical meals for Branch 30 days. prednisone 2022-0 No 1mg 10 mg 5-24 tablet 00:00: 00 azithromyci 2022-0 No mg n 250 mg 5-24 tablet 00:00: 00 prednisone 2022-0 No 1mg 10 mg 5-24 tablet 00:00: 00 azithromyci 2022-0 No mg n 250 mg 5-24 tablet 00:00: 00 prednisone 2022-0 No 1mg 10 mg 5-24 tablet 00:00: 00 azithromyci 2022-0 No mg n 250 mg 5-24 tablet 00:00: 00 levothyroxi 2022-0 No 1mcg ne 175 mcg 1-24 tablet 00:00: 00 levothyroxi 2022-0 No 1mcg ne 175 mcg 1-24 tablet 00:00: 00 levothyroxi 2022-0 No 1mcg ne 175 mcg 1-24 tablet 00:00: 00 atorvastati 2022-0 No 1mg n 20 mg 1-21 tablet 00:00: 00 levothyroxi 2022-0 No 1mcg ne 125 mcg 1-21 tablet 00:00: 00 atorvastati 2022-0 No 1mg n 20 mg 1-21 tablet 00:00: 00 levothyroxi 2022-0 No 1mcg ne 125 mcg 1-21 tablet 00:00: 00 atorvastati 2022-0 No 1mg n 20 mg 1-21 tablet 00:00: 00 levothyroxi 2022-0 No 1mcg ne 125 mcg 1-21 tablet 00:00: 00 levothyroxi 2021-0 No 1mcg ne 125 mcg 7-18 tablet 00:00: 00 levothyroxi 2021-0 No 1mcg ne 125 mcg 7-18 tablet 00:00: 00 levothyroxi 2021-0 No 1mcg ne 125 mcg 7-18 tablet 00:00: 00 ibuprofen 2021-0 No 1mg 800 mg 7-15 tablet 00:00: 00 atorvastati 2021-0 No 1mg n 20 mg 7-15 tablet 00:00: 00 levothyroxi 2021-0 No 1mcg ne 112 mcg 7-15 tablet 00:00: 00 Dose 1-0 No Unknown 7-15 00:00: 00 atorvastati 1-0 No 1mg n 20 mg 7-15 tablet 00:00: 00 levothyroxi 2020-0 No 1mcg ne 112 mcg 7-15 tablet 00:00: 00 ibuprofen 1-0 No 1mg 800 mg 7-15 tablet 00:00: 00 atorvastati 1-0 No 1mg n 20 mg 7-15 tablet 00:00: 00 levothyroxi 1-0 No 1mcg ne 112 mcg 7-15 tablet 00:00: 00 acetaminoph 2020-0 Yes [id number] 1000mg Take 2 Univers en 500 mg 6-07 tablets by ity of tablet 00:00: mouth [place] 00 every 6 Medical (six) Branch hours as needed for Pain. acetaminoph 2020-0 Yes [id number] 1000mg Take 2 Univers en 500 mg 6-07 tablets by ity of tablet 00:00: mouth [place] 00 every 6 Medical (six) Branch hours as needed for Pain. acetaminoph 2020-0 Yes [id number] 1000mg Take 2 Univers en 500 mg 6-07 tablets by ity of tablet 00:00: mouth [place] 00 every 6 Medical (six) Branch hours as needed for Pain. acetaminoph 2020-0 Yes [id number] 1000mg Take 2 Univers en 500 mg 6-07 tablets by ity of tablet 00:00: mouth [place] 00 every 6 Medical (six) Branch hours as needed for Pain. acetaminoph 2020-0 Yes [id number] 1000mg Take 2 Univers en 500 mg 6-07 tablets by ity of tablet 00:00: mouth [place] 00 every 6 Medical (six) Branch hours as needed for Pain. acetaminoph 2020-0 Yes [id number] 1000mg Take 2 Univers en 500 mg 6-07 tablets by ity of tablet 00:00: mouth [place] 00 every 6 Medical (six) Branch hours as needed for Pain. acetaminoph 2020-0 Yes [id number] 1000mg Take 2 Univers en 500 mg 6-07 tablets by ity of tablet 00:00: mouth [place] 00 every 6 Medical (six) Branch hours as needed for Pain. acetaminoph 2020-0 Yes [id number] 1000mg Take 2 Univers en 500 mg 6-07 tablets by ity of tablet 00:00: mouth [place] 00 every 6 Medical (six) Branch hours as needed for Pain. acetaminoph 2020-0 Yes [id number] 1000mg Take 2 Univers en 500 mg 6-07 tablets by ity of tablet 00:00: mouth [place] 00 every 6 Medical (six) Branch hours as needed for Pain. acetaminoph 2020-0 Yes [id number] 1000mg Take 2 Univers en 500 mg 6-07 tablets by ity of tablet 00:00: mouth [place] 00 every 6 Medical (six) Branch hours as needed for Pain. ondansetron 0 2022- No [id number] 4mg Take 1 Univers (ZOFRAN) 4 6-07 05-27 tablet by ity of mg tablet 00:00: 00:00 mouth [place] 00 :00 every 8 Medical (eight) Branch hours as needed for Nausea and Vomiting (N/V). simethicone 2020-0 Yes [id number] 80mg Take 1 Univers 80 mg 5-24 tablet by ity of chewable 00:00: mouth [place] tablet 00 every 6 Medical (six) Branch hours as needed for Gas. simethicone 2020-0 Yes [id number] 80mg Take 1 Univers 80 mg 5-24 tablet by ity of chewable 00:00: mouth [place] tablet 00 every 6 Medical (six) Branch hours as needed for Gas. simethicone 2020-0 Yes [id number] 80mg Take 1 Univers 80 mg 5-24 tablet by ity of chewable 00:00: mouth [place] tablet 00 every 6 Medical (six) Branch hours as needed for Gas. simethicone 2020-0 Yes [id number] 80mg Take 1 Univers 80 mg 5-24 tablet by ity of chewable 00:00: mouth [place] tablet 00 every 6 Medical (six) Branch hours as needed for Gas. simethicone 2020-0 Yes [id number] 80mg Take 1 Univers 80 mg 5-24 tablet by ity of chewable 00:00: mouth [place] tablet 00 every 6 Medical (six) Branch hours as needed for Gas. simethicone 2020-0 Yes [id number] 80mg Take 1 Univers 80 mg 5-24 tablet by ity of chewable 00:00: mouth [place] tablet 00 every 6 Medical (six) Branch hours as needed for Gas. simethicone 2020-0 Yes [id number] 80mg Take 1 Univers 80 mg 5-24 tablet by ity of chewable 00:00: mouth [place] tablet 00 every 6 Medical (six) Branch hours as needed for Gas. simethicone 2020-0 Yes [id number] 80mg Take 1 Univers 80 mg 5-24 tablet by ity of chewable 00:00: mouth [place] tablet 00 every 6 Medical (six) Branch hours as needed for Gas. simethicone 2020-0 Yes [id number] 80mg Take 1 Univers 80 mg 5-24 tablet by ity of chewable 00:00: mouth [place] tablet 00 every 6 Medical (six) Branch hours as needed for Gas. simethicone 2020-0 Yes [id number] 80mg Take 1 Univers 80 mg 5-24 tablet by ity of chewable 00:00: mouth [place] tablet 00 every 6 Medical (six) Branch hours as needed for Gas. polyethylen 2021- No [id number] 17g Take 17 g Univers e glycol 01-13- by mouth 2 ity of 3350 00:00: 00:00 (two) [place] (MIRALAX) 00 :00 times Medical 17 daily. Branch gram/dose powder bisacodyL 2021- No [id number] 5mg Take 1 Univers (DULCOLAX, 01-13- tablet by ity of BISACODYL,) 00:00: 00:00 mouth once [place] 5 mg EC 00 :00 daily as Medical tablet needed for Branch Constipati on. ondansetron 2021- No [id number] 4mg Take 1 Univers (ZOFRAN) 4 01-13-27 tablet by ity of mg tablet 00:00: 00:00 mouth [place] 00 :00 every 8 Medical (eight) Branch hours. levothyroxi 2020-0 No 1mcg ne 112 mcg 3-08 tablet 00:00: 00 levothyroxi 2020-0 No 1mcg ne 112 mcg 3-08 tablet 00:00: 00 levothyroxi 2020-0 No 1mcg ne 112 mcg 3-08 tablet 00:00: 00 atorvastati 2020-0 No 1mg n 20 mg 3-02 tablet 00:00: 00 atorvastati 2020-0 No 1mg n 20 mg 3-02 tablet 00:00: 00 atorvastati 2020-0 No 1mg n 20 mg 3-02 tablet 00:00: 00 Voltaren 1 2019-1 No 1% % topical 2-29 gel 00:00: 00 Voltaren 1 1 No 1% % topical 2-29 gel 00:00: 00 Voltaren 1 2019-1 No 1% % topical 2-29 gel 00:00: 00 levothyroxi 2019-08 Yes Univer s ne 100 mcg 2-28 ity of tablet 00:00: [place] 00 [facility] Branch levothyroxi 2019-08 Yes Univer s ne 100 mcg 2-28 ity of tablet 00:00: [address] levothyroxi 2019- Yes Univer s ne 100 mcg 2-28 ity of tablet 00:00: [address] levothyroxi 2019-08 Yes Univer s ne 100 mcg 2-28 ity of tablet 00:00: [address] levothyroxi 2019- Yes Univer s ne 100 mcg 2-28 ity of tablet 00:00: [address] Branch levothyroxi 2019-08 Yes Univer s ne 100 mcg 2-28 ity of tablet 00:00: [address] levothyroxi 2019- Yes Univer s ne 100 mcg 2-28 ity of tablet 00:00: [address] levothyroxi 2019- Yes Univer s ne 100 mcg 2-28 ity of tablet 00:00: [address] Branch levothyroxi 2019- Yes Univer s ne 100 mcg 2-28 ity of tablet 00:00: [address] Branch levothyroxi 2019-1 Yes Univer s ne 100 mcg 2-28 ity of tablet 00:00: [address] levothyroxi 2019-1 No 1mcg ne 100 mcg 2-25 tablet 00:00: 00 levothyroxi 2019-1 No 1mcg ne 100 mcg 2-25 tablet 00:00: 00 levothyroxi 2019-1 No 1mcg ne 100 mcg 2-25 tablet 00:00: 00 atorvastati 2019-1 Yes Univer s n 20 mg 2-22 ity of tablet 00:00: [place] [address] Medical Branch atorvastati 2019- Yes Univer s n 20 mg 2-22 ity of tablet 00:00: [address] Branch atorvastati 2020- Yes Univer s n 20 mg 2-22 ity of tablet 00:00: [address] atorvastati 2019-08 Yes Univer s n 20 mg 2-22 ity of tablet 00:00: [address] atorvastati 2019- Yes Univer s n 20 mg 2-22 ity of tablet 00:00: [address] atorvastati 2019- Yes Univer s n 20 mg 2-22 ity of tablet 00:00: [address] atorvastati 2019-08 Yes Univer s n 20 mg 2-22 ity of tablet 00:00: [address] atorvastati 2019-08 Yes Univer s n 20 mg 2-22 ity of tablet 00:00: [address] atorvastati 2019-08 Yes Univer s n 20 mg 2-22 ity of tablet 00:00: [address] atorvastati 2019-08 Yes Univer s n 20 mg 2-22 ity of tablet 00:00: [address] prednisone 2019- No 1mg 20 mg 2-22 tablet 00:00: 00 ibuprofen 2020-1 No 1mg 800 mg 2-22 tablet 00:00: 00 cyclobenzap 2020- No 1mg rine 10 mg 2-22 tablet 00:00: 00 atorvastati 2019-08 No 1mg n 20 mg 2-22 tablet 00:00: 00 prednisone 2020-1 No 1mg 20 mg 2-22 tablet 00:00: 00 ibuprofen 2020-1 No 1mg 800 mg 2-22 tablet 00:00: 00 cyclobenzap 2019- No 1mg rine 10 mg 2-22 tablet 00:00: 00 atorvastati 2019- No 1mg n 20 mg 2-22 tablet 00:00: 00 prednisone 2020-1 No 1mg 20 mg 2-22 tablet 00:00: 00 ibuprofen 2020-1 No 1mg 800 mg 2-22 tablet 00:00: 00 cyclobenzap 2020- No 1mg rine 10 mg 2-22 tablet 00:00: 00 atorvastati 2020- No 1mg n 20 mg 2-22 tablet 00:00: 00 atorvastati 2019-1 No 1mg n 20 mg 1-03 tablet 00:00: 00 atorvastati 2020-1 No 1mg n 20 mg 1-03 tablet 00:00: 00 atorvastati 2020-1 No 1mg n 20 mg 1-03 tablet 00:00: 00 levothyroxi 2020-1 No 1mcg ne 112 mcg 0-08 tablet 00:00: 00 levothyroxi 2020-1 No 1mcg ne 112 mcg 0-08 tablet 00:00: 00 levothyroxi 2020-1 No 1mcg ne 112 mcg 0-08 tablet 00:00: 00 hydroxyzine 2020-1 No 1mg HCl 50 mg 0-07 tablet 00:00: 00 levothyroxi 2020-1 No 1mcg ne 125 mcg 0-07 tablet 00:00: 00 hydroxyzine 2020-1 No 1mg HCl 50 mg 0-07 tablet 00:00: 00 levothyroxi 2020-1 No 1mcg ne 125 mcg 0-07 tablet 00:00: 00 hydroxyzine 2019-1 No 1mg HCl 50 mg 0-07 tablet 00:00: 00 levothyroxi 2019-1 No 1mcg ne 125 mcg 0-07 tablet 00:00: 00 atorvastati 2020-0 No 1mg n 20 mg 7-23 tablet 00:00: 00 levothyroxi 2020-0 No 1mcg ne 125 mcg 7-23 tablet 00:00: 00 atorvastati 2020-0 No 1mg n 20 mg 7-23 tablet 00:00: 00 levothyroxi 2020-0 No 1mcg ne 125 mcg 7-23 tablet 00:00: 00 atorvastati 2020-0 No 1mg n 20 mg 7-23 tablet 00:00: 00 levothyroxi 2020-0 No 1mcg ne 125 mcg 7-23 tablet 00:00: 00 levothyroxi 2020-0 No 1mcg ne 150 mcg 4-24 tablet 00:00: 00 levothyroxi 2020-0 No 1mcg ne 150 mcg 4-24 tablet 00:00: 00 levothyroxi 2020-0 No 1mcg ne 150 mcg 4-24 tablet 00:00: 00 Flonase 2020-0 No 1mcg/ac Allergy 4-21 tuation Relief 50 00:00: mcg/actuati 00 on nasal spray,suspe nsion Macrobid 2020-0 No 1mg 100 mg 4-21 capsule 00:00: 00 Flonase 2020-0 No 1mcg/ac Allergy 4-21 tuation Relief 50 00:00: mcg/actuati 00 on nasal spray,suspe nsion Macrobid 2020-0 No 1mg 100 mg 4-21 capsule 00:00: 00 Flonase 2020-0 No 1mcg/ac Allergy 4-21 tuation Relief 50 00:00: mcg/actuati 00 on nasal spray,suspe nsion Macrobid 2020-0 No 1mg 100 mg 4-21 capsule 00:00: 00 atorvastati 2019-1 No 1mg n 20 mg 1-20 tablet 00:00: 00 levothyroxi 2019-1 No 1mcg ne 100 mcg 1-20 tablet 00:00: 00 atorvastati 2019-1 No 1mg n 20 mg 1-20 tablet 00:00: 00 levothyroxi 2019-1 No 1mcg ne 100 mcg 1-20 tablet 00:00: 00 atorvastati 2019-1 No 1mg n 20 mg 1-20 tablet 00:00: 00 levothyroxi 2019-1 No 1mcg ne 100 mcg 1-20 tablet 00:00: 00 levothyroxi 2019-1 No 1mcg ne 75 mcg 1-16 tablet 00:00: 00 levothyroxi 2019-1 No 1mcg ne 75 mcg 1-16 tablet 00:00: 00 levothyroxi 2019-1 No 1mcg ne 75 mcg 1-16 tablet 00:00: 00 levothyroxi 2019-0 No 1mcg ne 75 mcg 5-16 tablet 00:00: 00 levothyroxi 2019-0 No 1mcg ne 75 mcg 5-16 tablet 00:00: 00 levothyroxi 2019-0 No 1mcg ne 75 mcg 5-16 tablet 00:00: 00 tramadol 50 2019-0 No 1mg mg tablet 5-15 00:00: 00 gabapentin 2019-0 No 1mg 100 mg 5-15 capsule 00:00: 00 tramadol 50 2019-0 No 1mg mg tablet 5-15 00:00: 00 gabapentin 2019-0 No 1mg 100 mg 5-15 capsule 00:00: 00 tramadol 50 2019-0 No 1mg mg tablet 5-15 00:00: 00 gabapentin 2019-0 No 1mg 100 mg 5-15 capsule 00:00: 00 levothyroxi 2018-0 No 1mcg ne 137 mcg 3-20 tablet 00:00: 00 levothyroxi 2018-0 No 1mcg ne 137 mcg 3-20 tablet 00:00: 00 levothyroxi 2018-0 No 1mcg ne 137 mcg 3-20 tablet 00:00: 00 levothyroxi 2018-0 No 1mcg ne 175 mcg 3-14 tablet 00:00: 00 levothyroxi 2018-0 No 1mcg ne 175 mcg 3-14 tablet 00:00: 00 levothyroxi 2018-0 No 1mcg ne 175 mcg 3-14 tablet 00:00: 00 prednisone 2017-0 No mg 10 mg 6-01 tablet 00:00: 00 prednisone 2017-0 No mg 10 mg 6-01 tablet 00:00: 00 prednisone 2017-0 No mg 10 mg 6-01 tablet 00:00: 00 mupirocin 2 2017-0 No 1% % topical 4-25 ointment 00:00: 00 mupirocin 2 2017-0 No 1% % topical 4-25 ointment 00:00: 00 mupirocin 2 2017-0 No 1% % topical 4-25 ointment 00:00: 00 levothyroxi 2017-0 No 1mcg ne 125 mcg 4-21 tablet 00:00: 00 levothyroxi 2017-0 No 1mcg ne 125 mcg 4-21 tablet 00:00: 00 levothyroxi 2017-0 No 1mcg ne 125 mcg 4-21 tablet 00:00: 00 levothyroxi 2017-0 No 1mcg ne 175 mcg 4-19 tablet 00:00: 00 levothyroxi 2017-0 No 1mcg ne 175 mcg 4-19 tablet 00:00: 00 levothyroxi 2017-0 No 1mcg ne 175 mcg 4-19 tablet 00:00: 00 prednisone 2016-1 No mg 20 mg 2-14 tablet 00:00: 00 levothyroxi 2015-1 No 1mcg ne 125 mcg 2-14 tablet 00:00: 00 prednisone 2015-1 No mg 20 mg 2-14 tablet 00:00: 00 levothyroxi 2015-1 No 1mcg ne 125 mcg 2-14 tablet 00:00: 00 prednisone 2015-1 No mg 20 mg 2-14 tablet 00:00: 00 levothyroxi 2015-1 No 1mcg ne 125 mcg 2-14 tablet 00:00: 00 fluticasone 2015-0 No 1mcg/ac 50 2-23 tuation mcg/actuati 00:00: on nasal 00 spray,suspe nsion fluticasone 2015-0 No 1mcg/ac 50 2-23 tuation mcg/actuati 00:00: on nasal 00 spray,suspe nsion fluticasone 2015-0 No 1mcg/ac 50 2-23 tuation mcg/actuati 00:00: on nasal 00 spray,suspe nsion Zithromax 2015-0 No 1mg Z-Ulysses 250 2-16 mg tablet 00:00: 00 Zithromax 2015-0 No 1mg Z-Ulysses 250 2-16 mg tablet 00:00: 00 Zithromax 2015-0 No 1mg Z-Ulysses 250 2-16 mg tablet 00:00: 00 Zoloft 50 2014-1 No 2mg mg tablet 2-10 00:00: 00 Zoloft 50 1 No 2mg mg tablet 2-10 00:00: 00 trazodone 1 No 12mg 50 mg 2-10 tablet 00:00: 00 Zoloft 50 2014-1 No 2mg mg tablet 2-10 00:00: 00 Zoloft 50 1 No 2mg mg tablet 2-10 00:00: 00 trazodone 1 No 12mg 50 mg 2-10 tablet 00:00: 00 Zoloft 50 1 No 2mg mg tablet 2-10 00:00: 00 Zoloft 50 2014-08 No 2mg mg tablet 2-10 00:00: 00 trazodone 1 No 12mg 50 mg 2-10 tablet 00:00: 00 simvastatin 2014- No 1mg 20 mg 1-17 tablet 00:00: 00 levothyroxi 2014- No 1mcg ne 125 mcg 1-17 tablet 00:00: 00 simvastatin 2014- No 1mg 20 mg 1-17 tablet 00:00: 00 levothyroxi 2014-08 No 1mcg ne 125 mcg 1-17 tablet 00:00: 00 simvastatin 2014- No 1mg 20 mg 1-17 tablet 00:00: 00 levothyroxi 2014-08 No 1mcg ne 125 mcg 1-17 tablet 00:00: 00 sertraline 2014-08 No 1mg 50 mg 0-06 tablet 00:00: 00 trazodone 2014-08 No 1mg 100 mg 0-06 tablet 00:00: 00 hydroxyzine 2014-08 No 1mg HCl 25 mg 0-06 tablet 00:00: 00 prazosin 1 2014-08 No 1mg mg capsule 0-06 00:00: 00 sertraline 2014-08 No 1mg 50 mg 0-06 tablet 00:00: 00 sertraline 2014-08 No 1mg 50 mg 0-06 tablet 00:00: 00 trazodone 2014-08 No 1mg 100 mg 0-06 tablet 00:00: 00 hydroxyzine 2014-08 No 1mg HCl 25 mg 0-06 tablet 00:00: 00 prazosin 1 2014-08 No 1mg mg capsule 0-06 00:00: 00 trazodone 2014-08 No 1mg 100 mg 0-06 tablet 00:00: 00 hydroxyzine 2014-08 No 1mg HCl 25 mg 0-06 tablet 00:00: 00 prazosin 1 2014-08 No 1mg mg capsule 0-06 00:00: 00 Vital Signs Vital Name Observation Time Observation Value Comments Source Systolic blood 2022-10-18 17:10:00 143 mm[Hg] Univer [facility] Diastolic blood 2022-10-18 17:10:00 84 mm[Hg] Unive [facility] Heart rate 2022-10-18 17:09:00 74 /min General acute hospital Body temperature 2022-10-18 17:09:00 36.61 Dominga [facility] Respiratory rate 2022-10-18 17:09:00 18 /min [facility] Body height 2022-10-18 17:09:00 162.6 cm General acute hospital Body weight 2022-10-18 17:09:00 66.543 kg General acute hospital BMI 2022-10-18 17:09:00 25.18 kg/m2 General acute hospital Oxygen saturation in 2022-10-18 17:09:00 98 /min [facility] blood by [facility] Pulse oximetry Branch BP Systolic 2022-07-10 11:49:00 159 mm[Hg] BP Diastolic 2022-07-10 11:49:00 93 mm[Hg] Weight Measured 2022-07-10 11:49:00 156.60 pounds Height Measured 2022-07-10 11:49:00 64.00 inches Body Temperature 2022-07-10 11:49:00 98.10 degrees Heart Rate 2022-07-10 11:49:00 62.00 /min Respiratory Rate 2022-07-10 11:49:00 17.00 /min BP Systolic 2022-02-17 11:44:00 151 mm[Hg] BP Diastolic 2022-02-17 11:44:00 91 mm[Hg] Weight Measured 2022-02-17 11:44:00 149.60 pounds Height Measured 2022-02-17 11:44:00 64.00 inches Body Temperature 2022-02-17 11:44:00 97.30 degrees Heart Rate 2022-02-17 11:44:00 76.00 /min Respiratory Rate 2022-02-17 11:44:00 BP Systolic 2022-01-13 13:51:00 120 mm[Hg] BP Diastolic 2022-01-13 13:51:00 66 mm[Hg] Weight Measured 2022-01-13 13:51:00 150.80 pounds Height Measured 2022-01-13 13:51:00 64.00 inches Body Temperature 2022-01-13 13:51:00 98.30 degrees Heart Rate 2022-01-13 13:51:00 72.00 /min Respiratory Rate 2022-01-13 13:51:00 21.00 /min BP Systolic 2022-01-12 14:40:00 BP Diastolic 2022-01-12 14:40:00 Weight Measured 2022-01-12 14:40:00 136.00 pounds Height Measured 2022-01-12 14:40:00 64.00 inches Body Temperature 2022-01-12 14:40:00 Heart Rate 2022-01-12 14:40:00 Respiratory Rate 2022-01-12 14:40:00 Heart Rate 2021-09-12 08:31:00 79.00 /min Respiratory Rate 2021-09-12 08:31:00 BP Systolic 2021-09-12 08:31:00 149 mm[Hg] BP Diastolic 2021-09-12 08:31:00 63 mm[Hg] Weight Measured 2021-09-12 08:31:00 158.40 pounds Height Measured 2021-09-12 08:31:00 64.00 inches Body Temperature 2021-09-12 08:31:00 97.30 degrees BP Systolic 2021-08-22 18:29:00 BP Diastolic 2021-08-22 18:29:00 Weight Measured 2021-08-22 18:29:00 135.00 pounds Height Measured 2021-08-22 18:29:00 64.00 inches Body Temperature 2021-08-22 18:29:00 Heart Rate 2021-08-22 18:29:00 Respiratory Rate 2021-08-22 18:29:00 BP Systolic 2021-05-29 17:22:00 BP Diastolic 2021-05-29 17:22:00 Weight Measured 2021-05-29 17:22:00 136.00 pounds Height Measured 2021-05-29 17:22:00 64.00 inches Body Temperature 2021-05-29 17:22:00 Heart Rate 2021-05-29 17:22:00 Respiratory Rate 2021-05-29 17:22:00 BP Systolic 2021-03-06 14:18:00 134 mm[Hg] BP Diastolic 2021-03-06 14:18:00 78 mm[Hg] Weight Measured 2021-03-06 14:18:00 137.80 pounds Height Measured 2021-03-06 14:18:00 64.00 inches Body Temperature 2021-03-06 14:18:00 98.10 degrees Heart Rate 2021-03-06 14:18:00 87.00 /min Respiratory Rate 2021-03-06 14:18:00 24.00 /min BP Systolic 2020-10-22 10:26:00 134 mm[Hg] BP Diastolic 2020-10-22 10:26:00 87 mm[Hg] Weight Measured 2020-10-22 10:26:00 135.00 pounds Height Measured 2020-10-22 10:26:00 64.00 inches Body Temperature 2020-10-22 10:26:00 98.20 degrees Heart Rate 2020-10-22 10:26:00 78.00 /min Respiratory Rate 2020-10-22 10:26:00 BP Systolic 2020-08-28 13:50:00 133 mm[Hg] BP Diastolic 2020-08-28 13:50:00 82 mm[Hg] Weight Measured 2020-08-28 13:50:00 141.80 pounds Height Measured 2020-08-28 13:50:00 64.00 inches Body Temperature 2020-08-28 13:50:00 98.30 degrees Heart Rate 2020-08-28 13:50:00 83.00 /min Respiratory Rate 2020-08-28 13:50:00 17.00 /min BP Systolic 2020-08-13 14:35:00 142 mm[Hg] BP Diastolic 2020-08-13 14:35:00 73 mm[Hg] Weight Measured 2020-08-13 14:35:00 137.20 pounds Height Measured 2020-08-13 14:35:00 64.00 inches Body Temperature 2020-08-13 14:35:00 98.40 degrees Heart Rate 2020-08-13 14:35:00 76.00 /min Respiratory Rate 2020-08-13 14:35:00 17.00 /min Procedures Procedure Date / Time Performed Performing Clinician Sour e POCT SARS-COV-2 2022-10-18 17:23:00 Cassia Ruiz [facility] ANTIGEN (BINAX NOW) Medical Bran ch ASSIGNMENT OF BENEFITS 2022-10-18 16:57:20 Doctor Unassigned, No [facility] Name Medical Branch REFERRAL- 2022-02-17 05:01:00 Doctor Unassigned, No [facility] REQUEST/RESPONSE Name Medical Branch Plan of Care Planned Activity Planned Date Details Comments Source Goal Plan of Care Note [code = 26785-2] Goal Plan of Care Note [code = 11836-7] Goal Plan of Care Note [code = 22630-6] Goal Plan of Care Note [code = 81742-1] Goal Plan of Care Note [code = 26383-9] Goal Plan of Care Note [code = 46992-2] Goal Plan of Care Note [code = 19465-6] Goal Plan of Care Note [code = 27397-0] Goal Plan of Care Note [code = 93403-1] Goal Plan of Care Note [code = 69186-0] Goal Plan of Care Note [code = 17829-9] Goal Plan of Care Note [code = 25823-5] Goal Plan of Care Note [code = 08897-3] Goal Plan of Care Note [code = 77122-7] Goal Plan of Care Note [code = 27903-3] Goal Plan of Care Note [code = 91091-5] Goal Plan of Care Note [code = 97187-2] Goal Plan of Care Note [code = 62311-9] Goal Plan of Care Note [code = 68994-1] Goal Plan of Care Note [code = 60608-5] Goal Plan of Care Note [code = 23395-2] Goal Plan of Care Note [code = 44312-5] Goal Plan of Care Note [code = 62955-1] Goal Plan of Care Note [code = 05251-2] Goal Plan of Care Note [code = 90575-4] Goal Plan of Care Note [code = 79429-7] Goal Plan of Care Note [code = 75284-5] Goal Plan of Care Note [code = 83895-7] Goal Plan of Care Note [code = 03686-2] Goal Plan of Care Note [code = 60884-8] Goal Plan of Care Note [code = 03739-1] Goal Plan of Care Note [code = 70145-5] Goal Plan of Care Note [code = 48409-0] Goal Plan of Care Note [code = 31346-1] Goal Plan of Care Note [code = 70127-6] Goal Plan of Care Note [code = 32599-1] Goal Plan of Care Note [code = 73029-9] Goal Plan of Care Note [code = 55571-5] Goal Plan of Care Note [code = 71342-4] Goal Plan of Care Note [code = 18312-9] Goal Plan of Care Note [code = 29057-9] Goal Plan of Care Note [code = 36524-5] Goal Plan of Care Note [code = 60178-6] Goal Plan of Care Note [code = 21654-2] Goal Plan of Care Note [code = 20945-9] Goal Plan of Care Note [code = 14951-9] Goal Plan of Care Note [code = 42777-8] Goal Plan of Care Note [code = 38775-9] Goal Plan of Care Note [code = 35696-1] Goal Plan of Care Note [code = 73303-9] Goal Plan of Care Note [code = 22884-0] Goal Plan of Care Note [code = 62124-8] Goal Plan of Care Note [code = 17949-6] Goal Plan of Care Note [code = 73917-9] Goal Plan of Care Note [code = 56440-9] Goal Plan of Care Note [code = 77274-0] Goal Plan of Care Note [code = 92038-7] Goal Plan of Care Note [code = 47402-4] Goal Plan of Care Note [code = 30130-3] Goal Plan of Care Note [code = 84442-8] Goal Plan of Care Note [code = 07238-8] Goal Plan of Care Note [code = 90078-5] Goal Plan of Care Note [code = 57626-7] Goal Plan of Care Note [code = 41450-5] Goal Plan of Care Note [code = 46827-1] Goal Plan of Care Note [code = 39802-2] Goal Plan of Care Note [code = 10826-8] Goal Plan of Care Note [code = 63541-5] Goal Plan of Care Note [code = 09219-3] Goal Plan of Care Note [code = 27408-9] Goal Plan of Care Note [code = 67144-3] Goal Plan of Care Note [code = 62007-0] Goal Plan of Care Note [code = 70897-8] Goal Plan of Care Note [code = 02494-0] Goal Plan of Care Note [code = 49049-9] Goal Plan of Care Note [code = 85381-9] Goal Plan of Care Note [code = 77910-4] Goal Plan of Care Note [code = 96841-0] Goal Plan of Care Note [code = 57423-0] Goal Plan of Care Note [code = 28918-1] Goal Plan of Care Note [code = 63599-8] Goal Plan of Care Note [code = 40272-3] Goal Plan of Care Note [code = 74235-8] Goal Plan of Care Note [code = 58598-3] Goal Plan of Care Note [code = 79805-7] Goal Plan of Care Note [code = 61973-7] Goal Plan of Care Note [code = 32918-3] Goal Plan of Care Note [code = 68652-1] Goal Plan of Care Note [code = 17060-3] Goal Plan of Care Note [code = 17942-3] Goal Plan of Care Note [code = 11782-8] Goal Plan of Care Note [code = 73513-0] Goal Plan of Care Note [code = 80370-5] Goal Plan of Care Note [code = 99954-4] Goal Plan of Care Note [code = 95390-7] Goal Plan of Care Note [code = 32866-2] Goal Plan of Care Note [code = 16408-8] Goal Plan of Care Note [code = 17683-9] Goal Plan of Care Note [code = 55934-9] Goal Plan of Care Note [code = 40738-4] Goal Plan of Care Note [code = 09648-7] Goal Plan of Care Note [code = 94446-6] Goal Plan of Care Note [code = 46441-9] Goal Plan of Care Note [code = 70458-3] Goal Plan of Care Note [code = 27231-3] Goal Plan of Care Note [code = 39451-0] Goal Plan of Care Note [code = 52442-0] Goal Plan of Care Note [code = 74760-4] Goal Plan of Care Note [code = 78297-2] Goal Plan of Care Note [code = 81914-5] Goal Plan of Care Note [code = 75309-4] Goal Plan of Care Note [code = 83911-3] Goal Plan of Care Note [code = 35726-6] Goal Plan of Care Note [code = 44912-0] Goal Plan of Care Note [code = 69975-5] Goal Plan of Care Note [code = 16252-2] Goal Plan of Care Note [code = 18242-0] Goal Plan of Care Note [code = 95167-8] Goal Plan of Care Note [code = 64150-7] Goal Plan of Care Note [code = 26106-0] Goal Plan of Care Note [code = 11714-6] Goal Plan of Care Note [code = 97755-3] Goal Plan of Care Note [code = 55139-3] Goal Plan of Care Note [code = 02008-7] Goal Plan of Care Note [code = 26042-6] Goal Plan of Care Note [code = 76235-8] Goal Plan of Care Note [code = 18105-2] Goal Plan of Care Note [code = 54603-0] Goal Plan of Care Note [code = 55188-9] Encounters Start End Encounter Admission Attending Care Care Encounter Source Date/Time Date/Time Type Type Clinicians Facility Department ID 2023-05-14 2023-05-14 Outpatient [facility] [id number] Rafael 14:06:25 14:06:25 0922 F Calhoun 2023-01-26 2023-01-26 Outpatient [facility] [id number] 023 Rafael 11:39:36 11:39:36 0606 F Calhoun 2023-01-25 2023-01-25 Outpatient [facility] [id number] 023 Rafael 17:39:23 17:39:23 0605 [facility] 2023-01-13 2023-01-13 Telemedici CHON Bauer 1.2.840.114 [id number] [facility] 10:45:00 11:00:00 ne Visit [facility] 350.1.13.10 ity [facility] 4.2.7.2.686 Emilianofarhat carson [id number] [address] 2023-01-13 2023-01-13 [facility] [id number] Univers 10:45:00 10:45:00 [facility] 2022-12-30 2022-12-30 [facility] [id number] Univers 11:45:00 11:45:00 [facility]22-11-05 2022-11-05 Outpatient [facility] [id number] 023 Rafael 13:09:02 13:09:02 0316 F Calhoun 2022-10-22 2022-10-22 Outpatient [facility] [id number] 023 Rafael 14:42:07 14:42:07 0302 F Calhoun 2022-10-20 2022-10-20 Telephone Provider, [facility] 1.2.840.114 [id number] Univers 00:00:00 00:00:00 Ang Db HEALTH 350.1.13.10 it y of Urgent [facility] [place] 4.2.7.2.686 [place] MILADIS?BLEA [id number] Ne isaiah VALERIA [address] [facility] 2022-10-20 2022-10-20 Letter Doctor SHORE 1.2.840.114 [id number] Univers 00:00:00 00:00:00 (Out) Unassigned, DALY 350.1.13.10 ity of [place] [facility] 4.2.7.2.686 Emiliano as [id number] [address] 2022-10-20 2022-10-20 Letter Doctor MONE 1.2.840.114 [id number] Univers 00:00:00 00:00:00 (Out) Unassigned, DALY 350.1.13.10 ity of [place] [facility] 4.2.7.2.686 Emiliano as [phone] [address] 2022-10-19 2022-10-19 MONE [place] 1.2.840.114 [id number] Univers 00:00:00 00:00:00 (Out) Caroline DALY 350.1.13.10 it y of HOSPITAL 4.2.7.2.686 Emiliano as [phone] [address] 2022-10-18 2022-10-18 Outpatient R LYNNE [facility] [id number] Univers 11:00:00 11:29:49 CASSIA balderas o f [facility] 2022-10-18 2022-10-18 Urgent Cassia Ruiz [facility] 1.2.840 .114 [id number] Univers 11:00:00 11:20:00 Care Unknown, Attending HEALTH 350.1.13.10 ity of [place] 4.2.7.2.686 Emiliano as MILADIS?BLEA [id number] Ne ariellamin [facility] [address] [facility] 2022-10-18 2022-10-18 Orders Doctor SHORE 1.2.840.114 [id number] Univers 00:00:00 00:00:00 Only Unassigned, DALY 350.1.13.10 ity of [place] [facility] 4.2.7.2.686 Emiliano as [phone] [facility] [address] 2022-09-25 2022-09-25 Outpatient [facility] [id number] 023 Rafael 10:05:55 10:05:55 0203 F Calhoun 2022-07-21 2022-07-21 Outpatient [facility] [id number] 022 Rafael 12:00:28 12:00:28 1129 F Calhoun 2022-07-10 2022-07-10 Outpatient [facility] [id number] 022 Rafael 11:38:37 11:38:37 1118 F Calhoun 2022-07-10 2022-07-10 Outpatient [id number] 00:00:00 00:00:00 Visit q3e2-30o7 0s1-69h0-r -dm12-a23 [id number]-[id number] [id number] 2022-04-22 2022-04-22 Outpatient [id number] 00:00:00 00:00:00 Visit t229-74p9 004-47f8-a -p289-0y3 [id number] 7035-07-08 2022-02-27 Telephone Syd SCMARCELO 1.2.840.114 [id number] [facility] 00:00:00 00:00:00 Concha PASTOR 350.1.13.10 i ty [place] [id number] Ne dical NAL 419 [facility] 2022-02-17 2022-02-17 Outpatient [id number] 00:00:00 00:00:00 Visit [id number] j61-244v-5 -65k4-3s4 1i2-6u13a2 [id number] 2022-02-17 2022-02-17 Orders Doctor MONE 1.2.840.114 [id number] Univers 00:00:00 00:00:00 Only Unassigned, DALY 350.1.13.10 ity of [place] [facility] 4.2.7.2.686 Emiliano as [phone] [address] 2022-01-14 2022-01-14 Telemedici [facility] 1.2.840.114 [id number] Univers 10:00:00 10:15:00 ne Visit Fausto HEALTH 350.1.13.10 [place] [id number] [address] 2022-01-14 2022-01-14 [facility] [id number] Univers 10:00:00 10:00:00 FAUSTO ity of [facility] 2022-01-14 2022-01-14 Orders Doctor MONE 1.2.840.114 [id number] Univers 00:00:00 00:00:00 Only Unassigned, DALY 350.1.13.10 ity of [place] [facility] 4.2.7.2.686 Emiliano as [id number] [address] 2021-12-31 2021-12-31 [facility] [id number] [facility] 11:15:00 11:15:00 FAUSTO ity of [facility] 2021-06-09 2021-06-09 Telephone [facility] 1.2.840.114 [id number] Univers 00:00:00 00:00:00 Fausto HEALTH 350.1.13.10 i [place] [id number] [address] 2021-06-04 2021-06-04 Office [facility] 1.2.840. 114 [id number] Univers 12:14:35 12:29:35 Visit SrinivasAb nhanDerik Y HEALTH 350.1.13.10 [place] [id number] [address] 2021-06-04 2021-06-04 Outpatient R SRINIVAS GILLIS, [facility] [id number] Univers 11:45:00 11:45:00 DERIK ity o f [facility] 2021-06-04 2021-06-04 Orders Doctor SHORE 1.2.840.114 [id number] Univers 00:00:00 00:00:00 Only Unassigned, DALY 350.1.13.10 ity of [place] [facility] 4.2.7.2.686 Emiliano as [id number] [address] 2021-02-27 2021-02-27 Outpatient R AIRAM ROJAS [facility] [id number] Univers 13:15:00 13:37:09 ity [facility] 2021-02-27 2021-02-27 Office Airam Rojas [facility] 1.2.840.114 [id number] Univers 13:02:56 13:37:09 Visit Y HEALTH 350.1.13.10 i [place] [id number] [address] 2021-02-24 2021-02-24 Orders Doctor MONE 1.2.840.114 [id number] Univers 00:00:00 00:00:00 Only Unassigned, DALY 350.1.13.10 ity of [place] [facility] 4.2.7.2.686 Emiliano as [phone] [address] 2021-02-11 2021-02-11 Refill RENETTA Bauer 1.2.840.114 [id number] Univers 00:00:00 00:00:00 Fausto Y HEALTH 350.1.13.10 i [place] [id number] [address] 2021-02-06 2021-02-06 Office Airam Rojas [facility] 1.2.840.114 [id number] Univers 15:59:55 16:14:55 Visit Y HEALTH 350.1.13.10 i [place] [id number] [address] 2021-02-06 2021-02-06 Outpatient AIRAM VELAZCO [facility] [id number] Univers 15:30:00 15:30:00 ity [facility] 2021-02-04 2021-02-04 Telephone Michel [facility] 1.2.840.114 [id number] Univers 00:00:00 00:00:00 Fausto Y HEALTH 350.1.13.10 i [place] [id number] [facility] [address] 2021-01-31 2021-01-31 Orders Doctor MONE 1.2.840.114 [id number] Univers 00:00:00 00:00:00 Only Unassigned, DALY 350.1.13.10 ity of [place] [facility] 4.2.7.2.686 Emiliano as [id number] [facility] [address] 2021-01-30 2021-01-30 Refill [facility] 1.2.840.114 [id number] Univers 00:00:00 00:00:00 Faust[place] Health 350.1.13.10 it [place] - [phone] Med [facility] [address] 2021-01-30 2021-01-30 Telephone [facility] 1.2.840.114 [id number] Univers 00:00:00 00:00:00 [place] Health 350.1.13.10 [place] - [id number] [facility] [address] 2021-01-25 2021-01-27 [facility] [id number] Univers 14:21:00 16:00:00 DERIK carbajaly o f [facility] 2021-01-25 2021-01-27 [facility] Anastasiia Espino 1.2.840.114 [id number] Univers 14:21:00 16:00:00 Encounter Derik Daly 350.1.13.10 ity of Hospital 4.2.7.2.686 Emiliano as [id number] [facility] [address] 2021-01-24 2021-01-24 Emergency X MAVIS GUZMAN [facility] ERT [id number] Univers 14:43:00 23:37:00 MAVIS GUZMAN ity of [facility] 2021-01-24 2021-01-24 Emergency Zarina Lawrence TRAUMA 1.2.8 40.114 [id number] Univers 14:43:00 23:37:00 [facility] [id number] [place] [id number] [facility] [address] 2021-01-24 2021-01-24 Outpatient R MARY [facility] [id number] Univers 14:00:00 14:00:00 ISE, ity of [facility] 2021-01-24 2021-01-24 Telephone [facility], [facility] 1.2.840.114 [id number] Univers 00:00:00 00:00:00 Fausto Y HEALTH 350.1.13.10 i ty [place] [id number] [facility] [address] 2021-01-24 2021-01-24 Case [facility], [facility] 1.2.840.114 [id number] Univers 00:00:00 00:00:00 Management Fausto Y HEALTH 350.1.13.10 [place] [id number] [facility] [address] 2021-01-13 2021-01-13 Hospital Airam Rojas 1.2.840.114 [id number] Univers 05:33:00 15:25:00 Encounter Daly 350.1.13.10 ity of Hospital 4.2.7.2.686 Emil[place] as [id number] [facility] [address] 2021-01-13 2021-01-13 Outpatient R AIRAM ROJAS [facility] SCT [id number] Univers 05:33:00 15:25:00 ity of [facility] 2021-01-13 2021-01-13 Surgery Airam Rojas 1.2.184.403 [id number] Univers 07:15:00 11:08:00 Daly 350.1.13.10 it y of Hospital 4.2.7.2.686 Emiliano as [id number] [facility] [address] 2021-01-13 2021-01-13 Orders Doctor SHORE 1.2.840.114 [id number] Univers 00:00:00 00:00:00 Only Unassigned, DALY 350.1.13.10 ity of [place] [facility] 4.2.7.2.686 Emiliano as [id number] [facility] [address] 2021-01-10 2021-01-10 Outpatient R [facility] [id number] Univers 14:00:00 14:00:00 ity of [facility] 2021-01-10 2021-01-10 Laboratory Only, Adc Test [facility] 1.2.840. 114 [id number] Univers 13:43:39 13:58:39 Only Jaiden Airam Karen 350.1.13.10 [place] [id number] [facility] [address] 2021-01-08 2021-01-08 Telephone Catjose, [facility] 1.2.840.114 [id number] Univers 00:00:00 00:00:00 [facility] 350.1.13.10 i ty [place] [id number] [facility] [address] 2021-01-07 2021-01-07 Telephone [facility], [facility] 1.2.840.114 [id number] Univers 00:00:00 00:00:00 [facility] 350.1.13.10 i [place] [phone] [facility] [address] 2021-01-06 2021-01-06 [facility]phone [facility] 1.2.840.114 [id number] Univers 00:00:00 00:00:00 [facility] 350.1.13.10 i ty [place] CL[place] [phone] [facility] [address] 2020-12-31 2020-12-31 Telephone Catjoset, [facility] 1.2.840.114 [id number] Univers 00:00:00 00:00:00 Fausto [facility] 350.1.13.10 i ty [place] [id number] [facility] [address] 2020-12-13 2020-12-13 Prep For RENETTA BauerIT 1.2.840.114 [id number] Univers 00:00:00 00:00:00 Surgery Fausto [facility] 350.1.13.10 i ty [place] [id number] [address] 2020-12-12 2020-12-12 Outpatient R AIRAM ROJAS [facility] [id number] Univers 15:00:00 15:00:00 ity [facility] 2020-12-12 2020-12-12 Office Airam Rojas [facility]ERS[facility] 1.2.840.114 [id number] Univers 14:36:55 14:51:55 Visit Y HEALTH 350.1.13.10 i ty [place] [id number] [address] 2020-12-04 2020-12-04 Surgery [facility] 1.2.775.186 [id number] Univers 14:52:00 15:37:00 Alex ICAL 350.1.13.10 it y of SCIENCES 4.2.7.2.686 Emiliano as BLDG [phone] [address] 2020-12-04 2020-12-04 Hospital Mary [facility] 1.2.840.114 [id number] Univers 11:15:00 15:28:00 Encounter Hipolito Alberts ICAL 350.1.13.10 ity of SCIENCES 4.2.7.2.686 Emiliano as [place]LD[place] [id number] [address] 2020-12-04 2020-12-04 Outpatient R HIPOLITO HERNANDEZ [facility] GIE 1 [id number] Univers 11:15:00 15:28:00 HIPOLITO HERNANDEZ [facility] 2020-12-04 2020-12-04 Surgery [facility] 1.2.840.114 [id number] Univers 09:30:00 10:30:00 Endoscopy ICAL 350.1.13.10 ity of SCIENCES 4.2.7.2.686 Emiliano as BLDG [phone] [address] 2020-12-03 2020-12-03 Laboratory Only, Adc Test [facility] 1.2.840. 114 [id number] Univers 10:04:03 10:19:03 Only Josep Strauss 350.1.13.10 ity of [place] [phone] [facility] [address] 2020-12-03 2020-12-03 Outpatient R RICA [facility] [id number] Univers 09:00:00 09:00:00 JOSEP ity of [facility] 2020-12-03 2020-12-03 Orders Doctor MONE 1.2.840.114 [id number] Univers 00:00:00 00:00:00 Only Unassigned, DALY 350.1.13.10 ity of [place] [facility] 4.2.7.2.686 Emiliano as [id number] [facility] [address] 2020-11-20 2020-11-20 Telephone Motility, [facility] 1.2.840.114 [id number] Univers 00:00:00 00:00:00 Endoscopy ICAL 350.1.13.10 ity of SCIENCES 4.2.7.2.686 Emiliano as BLDG [id number] [facility] [address] 2020-11-14 2020-11-14 Telephone Motility, [facility] 1.2.840.114 [id number] Univers 00:00:00 00:00:00 Endoscopy ICAL 350.1.13.10 ity of SCIENCES 4.2.7.2.686 Emiliano as BLD[place] [phone] [facility] [address] 2020-11-12 2020-11-12 Prep For Michel, RENETTAIT 1.2.840.114 [id number] Univers 00:00:00 00:00:00 Surgery Fausto HEALTH 350.1.13.10 i ty of CL[place] [phone] [facility] [address] 2020-11-01 2020-11-01 [facility] 1.2.840.114 [id number] Univers 11:25:46 23:59:00 Encounter Markus HWANG 350.1.13.10 ity [place] [phone] Ne isaiah GOTTI 807 [facility] 2020-11-01 2020-11-01 Outpatient R LILLY [facility] [id number] Univers 11:25:46 23:59:00 MARKUS ity [facility] 2020-10-25 2020-10-25 Office Airam Rojas [facility] 1.2.658.047 [id number] Univers 09:06:36 09:58:45 Visit SPECIALTY 350.1.13.10 ity [place] [phone] Ne isaiah GOTTI 185 [facility] 2020-10-25 2020-10-25 Outpatient R AIRAM ROJAS [facility] [id number] Univers 08:45:00 09:58:45 ity [facility] 2020-10-23 2020-10-23 Office [facility] 1.2.840.114 [id number] Univers 13:46:56 14:16:56 Visit ise, SPECIALTY 350.1.13.10 ity [facility] [place]2.[place].2.[place] [phone] Ne isaiah GOTTI 072 [facility] 2020-10-23 2020-10-23 Outpatient R MICAHADRIANA [facility] [id number] Univers 14:00:00 14:00:00 ISEliana itshu [facility] 2020-10-01 2020-10-01 Outpatient R ELENITA [facility] GIE [id number] Univers 09:36:00 11:20:00 MARIBEL ity [facility] 2020-09-27 2020-09-27 Laboratory Only, Lcc Test [facility] 1.2.840. 114 [id number] Univers 14:40:06 14:55:06 Only Maribel Kwong SPECIALTY 350.1.13.1 0 ity [place] C[place] [phone] Ne isaiah GOTTI 353 [facility] 2020-09-27 2020-09-27 Outpatient R ELENITA [facility] [id number] Univers 14:45:00 14:45:00 MARIBEL ity of [facility] 2020-09-20 2020-09-20 [facility] 1.2.840.114 [id number] Univers 13:33:55 14:34:18 Visit JAIDEN kay 350.1.13.10 ity [facility] 4.2.7.[address] [place] [address] AT [phone] Ne isaiah GOTTI 2 [facility] 2020-09-20 2020-09-20 [facility] 853 [id number] Univers 13:30:00 13:30:00 ISEliana ity of [facility] 2020-09-20 2020-09-20 Orders Doctor SHORE 1.2.840.114 [id number] Univers 00:00:00 00:00:00 Only Unassigned, DALY 350.1.13.10 ity of [place] [facility] 4.2.7.[address] [place] [address] [phone] [facility] [address] 2020-09-03 2020-09-03 [facility] 1.2.840.114 [id number] Univers 13:51:00 17:20:00 Nolan Frank Pastor 350.1.13.10 i ty of [place] 4.2.7.2.686 [facility] [phone] [facility] [address] [place] 2020-09-03 2020-09-03 Emergency X CHASTITY, [facility] ERT [id number] Univers 13:51:00 17:20:00 NOLAN ity of [facility] 2020-09-03 2020-09-03 [facility] 1.2.840.114 [id number] 13:51:00 17:20:00 Nolan Frank Pastor 350.1.13.10 [place] 4.2.7.2.686 [place] [id number] 08 2020-09-03 2020-09-03 Orders Doctor SHORE 1.2.840.114 [id number] Univers 00:00:00 00:00:00 Only Unassigned, DALY 350.1.13.10 ity of [place] HOSPITAL 4.2.7.2.686 Emiliano as [phone] [facility] kim [address] 2020-09-03 2020-09-03 Orders Doctor MONE 1.2.840.114 [id number] 00:00:00 00:00:00 Only Unassigned, DALY 350.1.13.10 [place] [facility] [phone] 009 Results Test Description Test Time Test Comments Results Result Comments Source VITAMIN D, 25 [place] 2023-05-15 07:00:18 Test Item Value Reference Range Interpretation Comme nts VITAMIN D, 25 [place] (test 31 NG/ML SEE BELOW E FFECTIVE 08/31/2022, PLEASE NOTE code = 4958) NEW METHODOLOGY IS ELECTROCHEMILUM INESCENCE BINDING ASSAY. NOTE: 25-HYDROX YVITAMIN D ASSAY INCLUDES 25-HYDROXYVITAM IN D2 AND D3. INTERPRETIVE RA NGES PEDIATRIC (<17 YEARS) . . . . . . . . . . . NG/ML 20-100ADULT: IN SUFFICIENT . . . . . . . . . . . . . . N G/ML <20 SUBOPTIMAL . . . . . . . . . . . . . . . NG/ML 20-29 OPTIMAL . . . . . . . . . . . . . . . . . NG/ML 30-100 COMPREHENSIVE METABOLIC [id number] 06:59:33 Test Item Value Reference Range Interpretation Comments GLUCOSE (test code = 2217) 88 MG/DL 70-99 BUN (test code = 2208) 16 MG/DL 6-20 CREATININE (test code = 2214) 0.81 MG/DL 0.60-1.30 eGFR (2020 CKD-EPI) (test code 87 ML/MIN/1.73 >60 = 31484) CALC BUN/CREAT (test code = 20 RATIO 02-17) SODIUM (test code = 2231) 140 MEQ/L 133-146 POTASSIUM (test code = 2228) 3.4 MEQ/L 3.5-5.4 L CHLORIDE (test code = 2215) 97 MEQ/L 95-107 CARBON DIOXIDE (test code = 29 MEQ/L 2205) CALCIUM (test code = 2209) 9.6 MG/DL 8.5-10.5 PROTEIN, TOTAL (test code = 7.3 G/DL 6.1-8.3 2228) ALBUMIN (test code = 220) 4.4 G/DL 3.5-5.2 CALC GLOBULIN (test code = 2.9 G/DL 1.9-3.7 2239) CALC A/G RATIO (test code = 1.5 RATIO 1.0-2.6 2233) BILIRUBIN, TOTAL (test code = 0.4 MG/DL <=1.2 2206) ALKALINE PHOSPHATASE (test 116 U/L 40-133 code = 220) AST (test code = 221) 24 U/L 9-40 ALT (test code = 221) 17 U/L 5-40 LIPID [id number] 06:59:33 Test Item Value Reference Range Interpretation Comments CHOLESTEROL (test 117 MG/DL <200 code = 2210) TRIGLYCERIDES (test 103 MG/DL <150 code = 2232) HDL CHOLESTEROL (test 36 MG/DL >39 L code = 222) CALC LDL CHOL (test 62 MG/DL <100 NOTE: C ALCULATED LDL code = 2237) IS BASED ON DAX-TRAMMELL METHOD WHICHINCLUDES ADJUSTABLE TRIGLYCERIDE:VL DL CHOLESTEROL RAT IO.THIS FACTOR VARIES B Y MEASURED TRIGLY CERIDE AND NON-HDLCHOL ESTEROL CONCENTRATIONS WITH INCREASED CALCU LATED LDL SEENIN HIGH ER TRIGLYCERIDE OR LOWER NON-HDL SPECIME NS. FOR MOREINFORMATION , SEE CLIENT ANNOUNCE MENT AT [email or web address] RISK RATIO LDL/HDL 1.72 RATIO <3.22 UNLESS O THERWISE (test code = 223) INDICATED , ALL TESTING PERFORMED AT [facility], [address] [place] [address] [facility] DIRECTOR: Tamy SCHERER JAKE NUMBER [id number] CAP ACCREDITATION N O. [id number] FREE T4 (THYROXINE)2023-05-15 06:57:57 Test Item Value Reference Range Interpretation Comments FREE T4 (THYROXINE) (test code = 2.88 NG/DL 0.80-1.90 H 2822) TSH, THIRD [id number] 06:57:57 Test Item Value Reference Range Interpretation Comments TSH, THIRD GENERATION (test code 0.059 UIU/ML 0.400-4.100 L = 2821) CBC W/AUTO DIFF WITH [id number] 04:56:46 Test Item Value Reference Range Interpretation Comments WBC (test code = 6.8 K/UL 3.5-11.0 1001) RBC (test code = 4.39 M/UL 3.80-5.40 1002) HEMOGLOBIN (test code 12.8 G/DL 11.5-15.5 = 1003) HEMATOCRIT (test code 38.2 % 34.0-45.0 = 1004) MCV (test code = 87.0 fL 80.0-99.0 1005) MCH (test code = 29.2 PG 25.0-33.0 1006) MCHC (test code = 33.5 G/DL 31.0-36.0 1007) RDW (test code = 12.1 % 11.5-15.0 1038) NEUTROPHILS (test 55.4 % code = 1008) LYMPHOCYTES (test 32.5 % code = 1010) MONOCYTES (test code 8.2 % = 1011) EOSINOPHILS (test 2.9 % code = 1012) BASOPHILS (test code 0.7 % = 1013) IMMATURE GRANULOCYTES 0.3 % (test code = 1036) NUCLEATED RBCS (test 0.0 /100 WBC'S See_Comment [Aut omated code = 1065) message] The sy stem which generated this result transmitted reference range : 0.0. The refere nce range was not u sed to interpret th is result as normal/abnormal . PLATELET COUNT (test 347 K/UL 130-400 code = 1015) ABSOLUTE NEUTROPHILS 3.78 K/UL 1.50-7.50 (test code = 1066) ABSOLUTE LYMPHOCYTES 2.22 K/UL 1.00-4.00 (test code = 1067) ABSOLUTE MONOCYTES 0.56 K/UL 0.20-1.00 (test code = 1068) ABSOLUTE EOSINOPHILS 0.20 K/UL 0.00-0.50 (test code = 1040) ABSOLUTE BASOPHILS 0.05 K/UL 0.00-0.20 (test code = 1069) ABS IMMATURE 0.02 K/UL 0.00-0.10 GRANULOCYTES (test code = 1020) ABS NUCLEATED RBCS 0.00 K/UL 0.00-0.11 (test code = 49411) HEMOGLOBIN [id number] 02:37:00 Test Item Value Reference Range Interpretation Comments HEMOGLOBIN A1c (test 5.8 % 4.2-5.6 H AMERIC AN DIABETES code = 56640) ASSOCIATION IDELINES FOR HGB A1C: PREDIABETES/INC REASED RISK . . . . . . . 5.7 -6.4% DIAGNOSIS OF DI ABETES . . . . . . . . . >=6 .5% WITH CONFIRMATION OR APPROPRIATE SYMPTOMS NOTE: ASSAY MAY BE AFFECTED BY HEMOGLOBINOPATH IES (SICKLE CELL ANEMIA, S- C DISEASE, OTHERS) OR ZOLTNA FICIALLY LOWERED BY DECR EASED RED CELL SURVIVAL ( HEMOLYTIC ANEMIAS, BLOOD LOSS, ETC.). CONSIDER ALTERN ATE TESTING OR LABORATORY C ONSULTATION. TSH + FREE T4 [id number] 06:40:20 Test Item Value Reference Range Interpretation Comments TSH, THIRD 0.639 UIU/ML 0.400-4.100 GENERATION (test code = 2821) FREE T4 (THYROXINE) 3.64 NG/DL 0.80-1.90 H [facility] has important (test code = 2823) pathology staff changes effecti ve 10/21/2022. New pathology staff will provide uninter rupted, excellent patie nt care and clinical consultation. S ee URL: [email or web address] UNLES S OTHERWISE INDIC ATED, ALL TESTING PER FOR[facility] AT [facility]. [address] [place] [address] [employer] DIRECTOR: Tamy SCHERER JAKE NUMBER [id number] CAP ACCREDITATION N O. [id number] HEMOGLOBIN [id number] 04:52:38 Test Item Value Reference Range Interpretation Comments HEMOGLOBIN A1c (test 6.0 % 4.2-5.6 H [employer]IC AN DIABETES code = 46220) ASSOCIATION IDELINES FOR HGB A1C: PREDIABETES/INC REASED RISK . . . . . . . 5.7 -6.4% DIAGNOSIS OF DI ABETES . . . . . . . . . >=6 .5% WITH CONFIRMATION OR APPROPRIATE SYMPTOMS NOTE: ASSAY MAY BE AFFECTED BY HEMOGLOBINOPATH IES (SICKLE CELL ANEMIA, S- C DISEASE, OTHERS) OR ZOLTAN FICIALLY LOWERED BY DECR EASED RED CELL SURVIVAL ( HEMOLYTIC ANEMIAS, BLOOD LOSS, ETC.). CONSIDER ALTERN ATE TESTING OR LABORATORY C ONSULTATION. COMPREHENSIVE METABOLIC [id number] 03:59:22 Test Item Value Reference Range Interpretation Comments GLUCOSE (test code = 94 MG/DL 70-99 2216) BUN (test code = 18 MG/DL 6-20 2207) CREATININE (test 0.86 MG/DL 0.60-1.30 code = 2214) eGFR (2020 CKD-EPI) 81 ML/MIN/1.73 >60 (test code = 50684) CALC BUN/CREAT (test 21 RATIO 6-28 code = 2235) SODIUM (test code = 143 MEQ/L 139-391 5241) POTASSIUM (test code 3.3 MEQ/L 3.5-5.4 L = 2227) CHLORIDE (test code 96 MEQ/L 95-107 = 2214) CARBON DIOXIDE (test 31 MEQ/L 19-31 code = 220) CALCIUM (test code = 10.5 MG/DL 8.5-10.5 2208) PROTEIN, TOTAL (test 8.4 G/DL 6.1-8.3 H code = 222) ALBUMIN (test code = 5.1 G/DL 3.5-5.2 2200) CALC GLOBULIN (test 3.3 G/DL 1.9-3.7 code = 2240) CALC A/G RATIO (test 1.5 RATIO 1.0-2.6 code = 2234) BILIRUBIN, TOTAL 0.5 MG/DL See_Comment [Automated message] (test code = 220) The syste m which generated this result transmit yady reference range : <=1.2. The refe rence range was not u sed to interpret th is result as normal/abnormal . ALKALINE PHOSPHATASE 130 U/L 40-133 (test code = 2204) AST (test code = 39 U/L 9-40 2217) ALT (test code = 35 U/L 5-40 2218) LIPID [id number] 03:59:22 Test Item Value Reference Range Interpretation Comments CHOLESTEROL (test 157 MG/DL <200 code = 2210) TRIGLYCERIDES (test 146 MG/DL <150 code = 2232) HDL CHOLESTEROL (test 34 MG/DL >39 L code = 2220) CALC LDL CHOL (test 98 MG/DL <100 NOTE: C ALCULATED LDL code = 2237) IS BASED ON DAX-TRAMMELL METHOD WHICHINCLUDES ADJUSTABLE TRIGLYCERIDE:VL DL CHOLESTEROL RAT IO.THIS FACTOR VARIES B Y MEASURED TRIGLY CERIDE AND NON-HDLCHOL ESTEROL CONCENTRATIONS WITH INCREASED CALCU LATED LDL SEENIN HIGH ER TRIGLYCERIDE OR LOWER NON-HDL SPECIME NS. FOR MOREINFORMATION , SEE CLIENT ANNOUNCE MENT AT [email or web address] RISK RATIO LDL/HDL 2.88 RATIO <3.22 (test code = 2238) POCT SARS-COV-2 ANTIGEN (BINAX NOW)2022-10-18 17:23:00 Test Item Value Reference Range Interpretation Comments POCT SARS-COV-2 ANTIGEN (test Not Detected Not Detected code = 64319-6) On board controls acceptable Yes with C Line (test code = 3574) Lab Interpretation (test code = Normal 04610-7) [facility], THIRD [id number] 06:16:09 Test Item Value Reference Range Interpretation Comments TSH, THIRD 30.300 UIU/ML 0.400-4.100 H UNLESS OTHERW ISE GENERATION (test INDICATED, ALL code = 2821) TESTING PERFORM ED ATCLINICAL PATH [facility], [address] DIRECTOR: SMITHA FAROOQ M.D. CLIA NUMBER [id number] CAP ACCREDITATION N O. [id number] HEMOGLOBIN [id number] 04:16:38 Test Item Value Reference Range Interpretation Comments HEMOGLOBIN A1c (test code = 38933) 5.7 % 4.2-5.6 H HEMOGLOBIN [id number] 00:00:00 Test Item Value Reference Range Interpretation Comments HEMOGLOBIN A1c (test code = 20030) 5.7 % HEMOGLOBIN [id number] 00:00:00 Test Item Value Reference Range Interpretation Comments HEMOGLOBIN A1c (test code = 35489) 5.7 % HEMOGLOBIN [id number] 00:00:00 Test Item Value Reference Range Interpretation Comments HEMOGLOBIN A1c (test code = 15071) 5.7 % [id number] 00:00:00 Test Item Value Reference Range Interpretation Comments TSH, THIRD GENERATION (test 30.300 UIU/ML code = 2821) [id number] 00:00:00 Test Item Value Reference Range Interpretation Comments TSH, THIRD GENERATION (test 30.300 UIU/ML code = 2821) [id number] 00:00:00 Test Item Value Reference Range Interpretation Comments TSH, THIRD GENERATION (test 30.300 UIU/ML code = 2821) HEMOGLOBIN [id number] 00:00:00 Test Item Value Reference Range Interpretation Comments HEMOGLOBIN A1c (test code = 71559) 5.7 % HEMOGLOBIN [id number] 00:00:00 Test Item Value Reference Range Interpretation Comments HEMOGLOBIN A1c (test code = 50210) 5.7 % HEMOGLOBIN [id number] 00:00:00 Test Item Value Reference Range Interpretation Comments HEMOGLOBIN A1c (test code = 36067) 5.7 % [id number] 00:00:00 Test Item Value Reference Range Interpretation Comments TSH, THIRD GENERATION (test 30.300 UIU/ML code = 2821) [id number] 00:00:00 Test Item Value Reference Range Interpretation Comments TSH, THIRD GENERATION (test 30.300 UIU/ML code = 2821) [id number] 00:00:00 Test Item Value Reference Range Interpretation Comments TSH, THIRD GENERATION (test 30.300 UIU/ML code = 2821) TSH, THIRD [id number] 05:21:07 Test Item Value Reference Range Interpretation Comments TSH, THIRD 17.200 UIU/ML 0.400-4.100 H UNLESS OTHERW ISE GENERATION (test INDICATED, ALL code = 2821) TESTING PERFORM ED ATCLINICAL PATH [facility], [facility]. [address] [place] [id number] [place] [address] DIRECTOR: SMITHA FAROOQ M.D. CLIA NUMBER [id number] CAP ACCREDITATION N O. [id number] 00:00:00 Test Item Value Reference Range Interpretation Comments TSH, THIRD GENERATION (test 17.200 UIU/ML code = 2821) [id number] 00:00:00 Test Item Value Reference Range Interpretation Comments TSH, THIRD GENERATION (test 17.200 UIU/ML code = 2821) [id number] 00:00:00 Test Item Value Reference Range Interpretation Comments TSH, THIRD GENERATION (test 17.200 UIU/ML code = 2821) [id number] 00:00:00 Test Item Value Reference Range Interpretation Comments TSH, THIRD GENERATION (test 17.200 UIU/ML code = 2821) [id number] 00:00:00 Test Item Value Reference Range Interpretation Comments TSH, THIRD GENERATION (test 17.200 UIU/ML code = 2821) [id number] 00:00:00 Test Item Value Reference Range Interpretation Comments TSH, THIRD GENERATION (test 17.200 UIU/ML code = 2821) [id number] 00:00:00 Test Item Value Reference Range Interpretation Comments TSH, THIRD GENERATION (test 17.200 UIU/ML code = 2821) [id number] 00:00:00 Test Item Value Reference Range Interpretation Comments TSH, THIRD GENERATION (test 17.200 UIU/ML code = 2821) [id number] 00:00:00 Test Item Value Reference Range Interpretation Comments TSH, THIRD GENERATION (test 86.700 UIU/ML code = 2821) [id number] 00:00:00 Test Item Value Reference Range Interpretation Comments TSH, THIRD GENERATION (test 86.700 UIU/ML code = 2821) [id number] 00:00:00 Test Item Value Reference Range Interpretation Comments TSH, THIRD GENERATION (test 86.700 UIU/ML code = 2821) [id number] 00:00:00 Test Item Value Reference Range Interpretation Comments TSH, THIRD GENERATION (test 86.700 UIU/ML code = 2821) [id number] 00:00:00 Test Item Value Reference Range Interpretation Comments TSH, THIRD GENERATION (test 86.700 UIU/ML code = 2821) [id number] 00:00:00 Test Item Value Reference Range Interpretation Comments TSH, THIRD GENERATION (test 86.700 UIU/ML code = 2821) [id number] 00:00:00 Test Item Value Reference Range Interpretation Comments TSH, THIRD GENERATION (test 86.700 UIU/ML code = 2821) [id number] 00:00:00 Test Item Value Reference Range Interpretation Comments TSH, THIRD GENERATION (test 86.700 UIU/ML code = 2821) LIPID [id number] 00:00:00 Test Item Value Reference Range Interpretation Comments CHOLESTEROL (test code = 2210) 168 MG/DL TRIGLYCERIDES (test code = 2232) 140 MG/DL HDL CHOLESTEROL (test code = 2220) 53 MG/DL CALC LDL CHOL (test code = 2237) 91 MG/DL RISK RATIO LDL/HDL (test code = 1.72 RATIO 2238) LIPID [id number] 00:00:00 Test Item Value Reference Range Interpretation Comments CHOLESTEROL (test code = 2210) 168 MG/DL TRIGLYCERIDES (test code = 2232) 140 MG/DL HDL CHOLESTEROL (test code = 2220) 53 MG/DL CALC LDL CHOL (test code = 2237) 91 MG/DL RISK RATIO LDL/HDL (test code = 1.72 RATIO 2238) [id number] 00:00:00 Test Item Value Reference Range Interpretation Comments TSH, THIRD GENERATION (test 24.700 UIU/ML code = 2821) [id number] 00:00:00 Test Item Value Reference Range Interpretation Comments TSH, THIRD GENERATION (test 24.700 UIU/ML code = 2821) [id number] 00:00:00 Test Item Value Reference Range Interpretation Comments TSH, THIRD GENERATION (test 24.700 UIU/ML code = 2821) LIPID [id number] 00:00:00 Test Item Value Reference Range Interpretation Comments CHOLESTEROL (test code = 2210) 168 MG/DL TRIGLYCERIDES (test code = 2232) 140 MG/DL HDL CHOLESTEROL (test code = 2220) 53 MG/DL CALC LDL CHOL (test code = 2237) 91 MG/DL RISK RATIO LDL/HDL (test code = 1.72 RATIO 2238) LIPID [id number] 00:00:00 Test Item Value Reference Range Interpretation Comments CHOLESTEROL (test code = 2210) 168 MG/DL TRIGLYCERIDES (test code = 2232) 140 MG/DL HDL CHOLESTEROL (test code = 2220) 53 MG/DL CALC LDL CHOL (test code = 2237) 91 MG/DL RISK RATIO LDL/HDL (test code = 1.72 RATIO 2238) [id number] 00:00:00 Test Item Value Reference Range Interpretation Comments TSH, THIRD GENERATION (test 24.700 UIU/ML code = 2821) [id number] 00:00:00 Test Item Value Reference Range Interpretation Comments TSH, THIRD GENERATION (test 24.700 UIU/ML code = 2821) [id number] 00:00:00 Test Item Value Reference Range Interpretation Comments TSH, THIRD GENERATION (test 24.700 UIU/ML code = 2821) LIPID [id number] 00:00:00 Test Item Value Reference Range Interpretation Comments CHOLESTEROL (test code = 2210) 168 MG/DL TRIGLYCERIDES (test code = 2232) 140 MG/DL HDL CHOLESTEROL (test code = 2220) 53 MG/DL CALC LDL CHOL (test code = 2237) 91 MG/DL RISK RATIO LDL/HDL (test code = 1.72 RATIO 2238) [id number] 00:00:00 Test Item Value Reference Range Interpretation Comments TSH, THIRD GENERATION (test 24.700 UIU/ML code = 2821) [id number] 00:00:00 Test Item Value Reference Range Interpretation Comments TSH, THIRD GENERATION (test 24.700 UIU/ML code = 2821) [id number] 00:00:00 Test Item Value Reference Range Interpretation Comments TSH, THIRD GENERATION (test code 0.301 UIU/ML = 2821) [id number] 00:00:00 Test Item Value Reference Range Interpretation Comments TSH, THIRD GENERATION (test code 0.301 UIU/ML = 2821) [id number] 00:00:00 Test Item Value Reference Range Interpretation Comments TSH, THIRD GENERATION (test code 0.301 UIU/ML = 2821) LIPID [id number] 00:00:00 Test Item Value Reference Range Interpretation Comments CHOLESTEROL (test code = 2210) 137 MG/DL TRIGLYCERIDES (test code = 2232) 125 MG/DL HDL CHOLESTEROL (test code = 2220) 45 MG/DL CALC LDL CHOL (test code = 2237) 71 MG/DL RISK RATIO LDL/HDL (test code = 1.58 RATIO 2238) LIPID [id number] 00:00:00 Test Item Value Reference Range Interpretation Comments CHOLESTEROL (test code = 2210) 137 MG/DL TRIGLYCERIDES (test code = 2232) 125 MG/DL HDL CHOLESTEROL (test code = 2220) 45 MG/DL CALC LDL CHOL (test code = 2237) 71 MG/DL RISK RATIO LDL/HDL (test code = 1.58 RATIO 2238) [id number] 00:00:00 Test Item Value Reference Range Interpretation Comments TSH, THIRD GENERATION (test code 0.301 UIU/ML = 2821) [id number] 00:00:00 Test Item Value Reference Range Interpretation Comments TSH, THIRD GENERATION (test code 0.301 UIU/ML = 2821) [id number] 00:00:00 Test Item Value Reference Range Interpretation Comments TSH, THIRD GENERATION (test code 0.301 UIU/ML = 2821) LIPID [id number] 00:00:00 Test Item Value Reference Range Interpretation Comments CHOLESTEROL (test code = 2210) 137 MG/DL TRIGLYCERIDES (test code = 2232) 125 MG/DL HDL CHOLESTEROL (test code = 2220) 45 MG/DL CALC LDL CHOL (test code = 2237) 71 MG/DL RISK RATIO LDL/HDL (test code = 1.58 RATIO 2238) LIPID [id number] 00:00:00 Test Item Value Reference Range Interpretation Comments CHOLESTEROL (test code = 2210) 137 MG/DL TRIGLYCERIDES (test code = 2232) 125 MG/DL HDL CHOLESTEROL (test code = 2220) 45 MG/DL CALC LDL CHOL (test code = 2237) 71 MG/DL RISK RATIO LDL/HDL (test code = 1.58 RATIO 2238) [id number] 00:00:00 Test Item Value Reference Range Interpretation Comments TSH, THIRD GENERATION (test code 0.301 UIU/ML = 2821) [id number] 00:00:00 Test Item Value Reference Range Interpretation Comments TSH, THIRD GENERATION (test code 0.301 UIU/ML = 2821) LIPID [id number] 00:00:00 Test Item Value Reference Range Interpretation Comments CHOLESTEROL (test code = 2210) 137 MG/DL TRIGLYCERIDES (test code = 2232) 125 MG/DL HDL CHOLESTEROL (test code = 2220) 45 MG/DL CALC LDL CHOL (test code = 2237) 71 MG/DL RISK RATIO LDL/HDL (test code = 1.58 RATIO 2238) [id number] 00:00:00 Test Item Value Reference Range Interpretation Comments TSH, THIRD GENERATION (test code 0.082 UIU/ML = 2821) [id number] 00:00:00 Test Item Value Reference Range Interpretation Comments TSH, THIRD GENERATION (test code 0.082 UIU/ML = 2821) [id number] 00:00:00 Test Item Value Reference Range Interpretation Comments TSH, THIRD GENERATION (test code 0.082 UIU/ML = 2821) [id number] 00:00:00 Test Item Value Reference Range Interpretation Comments TSH, THIRD GENERATION (test code 0.082 UIU/ML = 2821) [id number] 00:00:00 Test Item Value Reference Range Interpretation Comments TSH, THIRD GENERATION (test code 0.082 UIU/ML = 2821) [id number] 00:00:00 Test Item Value Reference Range Interpretation Comments TSH, THIRD GENERATION (test code 0.082 UIU/ML = 2821) [id number] 00:00:00 Test Item Value Reference Range Interpretation Comments TSH, THIRD GENERATION (test code 0.082 UIU/ML = 2821) [id number] 00:00:00 Test Item Value Reference Range Interpretation Comments TSH, THIRD GENERATION (test code 0.082 UIU/ML = 2821) SARS-CoV-2 (COVID-19) by RT-PCR (HIGH RISK)2020-03-14 00:00:00 Test Item Value Reference Range Interpretation Comments SARS-CoV-2 INTERPRETATION (test NEGATIVE code = 09942) SOURCE (test code = 85638) NOT SPECIFIED SARS-CoV-2 (COVID-19) by RT-PCR (HIGH RISK)2020-03-14 00:00:00 Test Item Value Reference Range Interpretation Comments SARS-CoV-2 INTERPRETATION (test NEGATIVE code = 00236) SOURCE (test code = 75405) NOT SPECIFIED SARS-CoV-2 (COVID-19) by RT-PCR (HIGH RISK)2020-03-14 00:00:00 Test Item Value Reference Range Interpretation Comments SARS-CoV-2 INTERPRETATION (test NEGATIVE code = 42718) SOURCE (test code = 74322) NOT SPECIFIED SARS-CoV-2 (COVID-19) by RT-PCR (HIGH RISK)2020-03-14 00:00:00 Test Item Value Reference Range Interpretation Comments SARS-CoV-2 INTERPRETATION (test NEGATIVE code = 79238) SOURCE (test code = 18142) NOT SPECIFIED SARS-CoV-2 (COVID-19) by RT-PCR (HIGH RISK)2020-03-14 00:00:00 Test Item Value Reference Range Interpretation Comments SARS-CoV-2 INTERPRETATION (test NEGATIVE code = 73351) SOURCE (test code = 83109) NOT SPECIFIED LIPID [id number] 00:00:00 Test Item Value Reference Range Interpretation Comments CHOLESTEROL (test code = 2210) 126 MG/DL TRIGLYCERIDES (test code = 2232) 165 MG/DL HDL CHOLESTEROL (test code = 2220) 53 MG/DL CALC LDL CHOL (test code = 2237) 49 MG/DL RISK RATIO LDL/HDL (test code = 0.92 RATIO 2238) LIPID [id number] 00:00:00 Test Item Value Reference Range Interpretation Comments CHOLESTEROL (test code = 2210) 126 MG/DL TRIGLYCERIDES (test code = 2232) 165 MG/DL HDL CHOLESTEROL (test code = 2220) 53 MG/DL CALC LDL CHOL (test code = 2237) 49 MG/DL RISK RATIO LDL/HDL (test code = 0.92 RATIO 2238) [id number] 00:00:00 Test Item Value Reference Range Interpretation Comments TSH, THIRD GENERATION (test code 0.091 UIU/ML = 2821) [id number] 00:00:00 Test Item Value Reference Range Interpretation Comments TSH, THIRD GENERATION (test code 0.091 UIU/ML = 2821) [id number] 00:00:00 Test Item Value Reference Range Interpretation Comments TSH, THIRD GENERATION (test code 0.091 UIU/ML = 2821) CORTISOL, [id number] 00:00:00 Test Item Value Reference Range Interpretation Comments CORTISOL, RANDOM (test code = 11.7 UG/DL 2655) CORTISOL, [id number] 00:00:00 Test Item Value Reference Range Interpretation Comments CORTISOL, RANDOM (test code = 11.7 UG/DL 2655) CORTISOL, [id number] 00:00:00 Test Item Value Reference Range Interpretation Comments CORTISOL, RANDOM (test code = 11.7 UG/DL 2655) LIPID [id number] 00:00:00 Test Item Value Reference Range Interpretation Comments CHOLESTEROL (test code = 2210) 126 MG/DL TRIGLYCERIDES (test code = 2232) 165 MG/DL HDL CHOLESTEROL (test code = 2220) 53 MG/DL CALC LDL CHOL (test code = 2237) 49 MG/DL RISK RATIO LDL/HDL (test code = 0.92 RATIO 2238) LIPID [id number] 00:00:00 Test Item Value Reference Range Interpretation Comments CHOLESTEROL (test code = 2210) 126 MG/DL TRIGLYCERIDES (test code = 2232) 165 MG/DL HDL CHOLESTEROL (test code = 2220) 53 MG/DL CALC LDL CHOL (test code = 2237) 49 MG/DL RISK RATIO LDL/HDL (test code = 0.92 RATIO 2238) [id number] 00:00:00 Test Item Value Reference Range Interpretation Comments TSH, THIRD GENERATION (test code 0.091 UIU/ML = 2821) [id number] 00:00:00 Test Item Value Reference Range Interpretation Comments TSH, THIRD GENERATION (test code 0.091 UIU/ML = 2821) [id number] 00:00:00 Test Item Value Reference Range Interpretation Comments TSH, THIRD GENERATION (test code 0.091 UIU/ML = 2821) CORTISOL, [id number] 00:00:00 Test Item Value Reference Range Interpretation Comments CORTISOL, RANDOM (test code = 11.7 UG/DL 2655) CORTISOL, [id number] 00:00:00 Test Item Value Reference Range Interpretation Comments CORTISOL, RANDOM (test code = 11.7 UG/DL 2655) CORTISOL, [id number] 00:00:00 Test Item Value Reference Range Interpretation Comments CORTISOL, RANDOM (test code = 11.7 UG/DL 2655) LIPID [id number] 00:00:00 Test Item Value Reference Range Interpretation Comments CHOLESTEROL (test code = 2210) 126 MG/DL TRIGLYCERIDES (test code = 2232) 165 MG/DL HDL CHOLESTEROL (test code = 2220) 53 MG/DL CALC LDL CHOL (test code = 2237) 49 MG/DL RISK RATIO LDL/HDL (test code = 0.92 RATIO 2238) [id number] 00:00:00 Test Item Value Reference Range Interpretation Comments TSH, THIRD GENERATION (test code 0.091 UIU/ML = 2821) [id number] 00:00:00 Test Item Value Reference Range Interpretation Comments TSH, THIRD GENERATION (test code 0.091 UIU/ML = 2821) CORTISOL, [id number] 00:00:00 Test Item Value Reference Range Interpretation Comments CORTISOL, RANDOM (test code = 11.7 UG/DL 2655) CORTISOL, [id number] 00:00:00 Test Item Value Reference Range Interpretation Comments CORTISOL, RANDOM (test code = 11.7 UG/DL 2655) CULTURE, [id number] 00:00:00 Test Item Value Reference Range Interpretation Comments CULTURE, URINE (test SPECIMEN NUMBER: code = 28201) [id number] CULTURE, [id number] 00:00:00 Test Item Value Reference Range Interpretation Comments CULTURE, URINE (test SPECIMEN NUMBER: code = 34439) [id number] CULTURE, [id number] 00:00:00 Test Item Value Reference Range Interpretation Comments CULTURE, URINE (test SPECIMEN NUMBER: code = 12507) [id number] CULTURE, [id number] 00:00:00 Test Item Value Reference Range Interpretation Comments CULTURE, URINE (test SPECIMEN NUMBER: code = 56864) [id number] CULTURE, [id number] 00:00:00 Test Item Value Reference Range Interpretation Comments CULTURE, URINE (test SPECIMEN NUMBER: code = 85307) [id number] LIPID [id number] 00:00:00 Test Item Value Reference Range Interpretation Comments CHOLESTEROL (test code = 2210) 171 MG/DL TRIGLYCERIDES (test code = 2232) 120 MG/DL HDL CHOLESTEROL (test code = 2220) 68 MG/DL CALC LDL CHOL (test code = 2237) 81 MG/DL RISK RATIO LDL/HDL (test code = 1.19 RATIO 2238) THYROID II PROFILE (T3U, T4, T7, TSH)2019-12-13 00:00:00 Test Item Value Reference Range Interpretation Comments T-UPTAKE (test code = 2817) 27.2 % THYROX. BIND. CAPAC. (test code 1.2 = 41944) T4 (THYROXINE) (test code = 5.6 UG/DL 2819) CORRECTED T4 (FTI) (test code = 4.7 UG/DL 2820) TSH, THIRD GENERATION (test 36.700 UIU/ML code = 2821) THYROID II PROFILE (T3U, T4, T7, TSH)2019-12-13 00:00:00 Test Item Value Reference Range Interpretation Comments T-UPTAKE (test code = 2817) 27.2 % THYROX. BIND. CAPAC. (test code 1.2 = 37405) T4 (THYROXINE) (test code = 5.6 UG/DL 2819) CORRECTED T4 (FTI) (test code = 4.7 UG/DL 2820) TSH, THIRD GENERATION (test 36.700 UIU/ML code = 2821) LIPID [id number] 00:00:00 Test Item Value Reference Range Interpretation Comments CHOLESTEROL (test code = 2210) 171 MG/DL TRIGLYCERIDES (test code = 2232) 120 MG/DL HDL CHOLESTEROL (test code = 2220) 68 MG/DL CALC LDL CHOL (test code = 2237) 81 MG/DL RISK RATIO LDL/HDL (test code = 1.19 RATIO 2238) LIPID [id number] 00:00:00 Test Item Value Reference Range Interpretation Comments CHOLESTEROL (test code = 2210) 171 MG/DL TRIGLYCERIDES (test code = 2232) 120 MG/DL HDL CHOLESTEROL (test code = 2220) 68 MG/DL CALC LDL CHOL (test code = 2237) 81 MG/DL RISK RATIO LDL/HDL (test code = 1.19 RATIO 2238) THYROID II PROFILE (T3U, T4, T7, TSH)2019-12-13 00:00:00 Test Item Value Reference Range Interpretation Comments T-UPTAKE (test code = 2817) 27.2 % THYROX. BIND. CAPAC. (test code 1.2 = 46956) T4 (THYROXINE) (test code = 5.6 UG/DL 2819) CORRECTED T4 (FTI) (test code = 4.7 UG/DL 2820) TSH, THIRD GENERATION (test 36.700 UIU/ML code = 2821) THYROID II PROFILE (T3U, T4, T7, TSH)2019-12-13 00:00:00 Test Item Value Reference Range Interpretation Comments T-UPTAKE (test code = 2817) 27.2 % THYROX. BIND. CAPAC. (test code 1.2 = 46588) T4 (THYROXINE) (test code = 5.6 UG/DL 2819) CORRECTED T4 (FTI) (test code = 4.7 UG/DL 2820) TSH, THIRD GENERATION (test 36.700 UIU/ML code = 2821) LIPID [id number] 00:00:00 Test Item Value Reference Range Interpretation Comments CHOLESTEROL (test code = 2210) 171 MG/DL TRIGLYCERIDES (test code = 2232) 120 MG/DL HDL CHOLESTEROL (test code = 2220) 68 MG/DL CALC LDL CHOL (test code = 2237) 81 MG/DL RISK RATIO LDL/HDL (test code = 1.19 RATIO 2238) LIPID [id number] 00:00:00 Test Item Value Reference Range Interpretation Comments CHOLESTEROL (test code = 2210) 171 MG/DL TRIGLYCERIDES (test code = 2232) 120 MG/DL HDL CHOLESTEROL (test code = 2220) 68 MG/DL CALC LDL CHOL (test code = 2237) 81 MG/DL RISK RATIO LDL/HDL (test code = 1.19 RATIO 2238) THYROID II PROFILE (T3U, T4, T7, TSH)2019-12-13 00:00:00 Test Item Value Reference Range Interpretation Comments T-UPTAKE (test code = 2817) 27.2 % THYROX. BIND. CAPAC. (test code 1.2 = 04787) T4 (THYROXINE) (test code = 5.6 UG/DL 2819) CORRECTED T4 (FTI) (test code = 4.7 UG/DL 2820) TSH, THIRD GENERATION (test 36.700 UIU/ML code = 2821) THYROID II PROFILE (T3U, T4, T7, TSH)2019-07-11 00:00:00 Test Item Value Reference Range Interpretation Comments T-UPTAKE (test code = 2817) 24.3 % THYROX. BIND. CAPAC. (test 1.3 code = 24303) T4 (THYROXINE) (test code = 1.7 UG/DL 2819) CORRECTED T4 (FTI) (test code 1.3 UG/DL = 2820) TSH, THIRD GENERATION (test >100.000 UIU/ML code = 2821) CBC W/AUTO [id number] 00:00:00 Test Item Value Reference Range Interpretation Comments WBC (test code = 1001) 4.0 K/UL RBC (test code = 1002) 3.81 M/UL HEMOGLOBIN (test code = 1003) 12.0 G/DL HEMATOCRIT (test code = 1004) 35.0 % MCV (test code = 1005) 91.9 fL MCH (test code = 1006) 31.5 PG MCHC (test code = 1007) 34.3 G/DL RDW (test code = 1038) 14.4 % NEUTROPHILS (test code = 1008) 61.2 % LYMPHOCYTES (test code = 1010) 26.6 % MONOCYTES (test code = 1011) 8.5 % EOSINOPHILS (test code = 1012) 2.7 % BASOPHILS (test code = 1013) 1.0 % PLATELET COUNT (test code = 1015) 245 K/UL CBC W/AUTO [id number] 00:00:00 Test Item Value Reference Range Interpretation Comments WBC (test code = 1001) 4.0 K/UL RBC (test code = 1002) 3.81 M/UL HEMOGLOBIN (test code = 1003) 12.0 G/DL HEMATOCRIT (test code = 1004) 35.0 % MCV (test code = 1005) 91.9 fL MCH (test code = 1006) 31.5 PG MCHC (test code = 1007) 34.3 G/DL RDW (test code = 1038) 14.4 % NEUTROPHILS (test code = 1008) 61.2 % LYMPHOCYTES (test code = 1010) 26.6 % MONOCYTES (test code = 1011) 8.5 % EOSINOPHILS (test code = 1012) 2.7 % BASOPHILS (test code = 1013) 1.0 % PLATELET COUNT (test code = 1015) 245 K/UL CBC W/AUTO [id number] 00:00:00 Test Item Value Reference Range Interpretation Comments WBC (test code = 1001) 4.0 K/UL RBC (test code = 1002) 3.81 M/UL HEMOGLOBIN (test code = 1003) 12.0 G/DL HEMATOCRIT (test code = 1004) 35.0 % MCV (test code = 1005) 91.9 fL MCH (test code = 1006) 31.5 PG MCHC (test code = 1007) 34.3 G/DL RDW (test code = 1038) 14.4 % NEUTROPHILS (test code = 1008) 61.2 % LYMPHOCYTES (test code = 1010) 26.6 % MONOCYTES (test code = 1011) 8.5 % EOSINOPHILS (test code = 1012) 2.7 % BASOPHILS (test code = 1013) 1.0 % PLATELET COUNT (test code = 1015) 245 K/UL LIPID [id number] 00:00:00 Test Item Value Reference Range Interpretation Comments CHOLESTEROL (test code = 2210) 291 MG/DL TRIGLYCERIDES (test code = 2232) 91 MG/DL HDL CHOLESTEROL (test code = 2220) 67 MG/DL CALC LDL CHOL (test code = 2237) 206 MG/DL RISK RATIO LDL/HDL (test code = 3.07 RATIO 2238) LIPID [id number] 00:00:00 Test Item Value Reference Range Interpretation Comments CHOLESTEROL (test code = 2210) 291 MG/DL TRIGLYCERIDES (test code = 2232) 91 MG/DL HDL CHOLESTEROL (test code = 2220) 67 MG/DL CALC LDL CHOL (test code = 2237) 206 MG/DL RISK RATIO LDL/HDL (test code = 3.07 RATIO 2238) COMPREHENSIVE METABOLIC [id number] 00:00:00 Test Item Value Reference Range Interpretation Comments GLUCOSE (test code = 2217) 77 MG/DL BUN (test code = 2208) 13 MG/DL CREATININE (test code = 2214) 0.73 MG/DL eGFR AMER. (test code 111 ML/MIN/1.73 = 78782) eGFR NON- AMER. (test 96 ML/MIN/1.73 code = 63494) CALC BUN/CREAT (test code = 18 RATIO 2235) SODIUM (test code = 2231) 143 MEQ/L POTASSIUM (test code = 2228) 5.2 MEQ/L CHLORIDE (test code = 2215) 104 MEQ/L CARBON DIOXIDE (test code = 27 MEQ/L 2205) CALCIUM (test code = 2209) 9.3 MG/DL PROTEIN, TOTAL (test code = 7.4 G/DL 2228) ALBUMIN (test code = 2201) 4.6 G/DL CALC GLOBULIN (test code = 2.8 G/DL 2240) CALC A/G RATIO (test code = 1.6 RATIO 2234) BILIRUBIN, TOTAL (test code = 0.4 MG/DL 2206) ALKALINE PHOSPHATASE (test 83 U/L code = 2204) AST (test code = 2218) 40 U/L ALT (test code = 2219) 34 U/L COMPREHENSIVE METABOLIC [id number] 00:00:00 Test Item Value Reference Range Interpretation Comments GLUCOSE (test code = 2217) 77 MG/DL BUN (test code = 2208) 13 MG/DL CREATININE (test code = 2214) 0.73 MG/DL eGFR AMER. (test code 111 ML/MIN/1.73 = 68732) eGFR NON- AMER. (test 96 ML/MIN/1.73 code = 41335) CALC BUN/CREAT (test code = 18 RATIO 2235) SODIUM (test code = 2231) 143 MEQ/L POTASSIUM (test code = 2228) 5.2 MEQ/L CHLORIDE (test code = 2215) 104 MEQ/L CARBON DIOXIDE (test code = 27 MEQ/L 2205) CALCIUM (test code = 2209) 9.3 MG/DL PROTEIN, TOTAL (test code = 7.4 G/DL 2228) ALBUMIN (test code = 2201) 4.6 G/DL CALC GLOBULIN (test code = 2.8 G/DL 2239) CALC A/G RATIO (test code = 1.6 RATIO 2233) BILIRUBIN, TOTAL (test code = 0.4 MG/DL 2206) ALKALINE PHOSPHATASE (test 83 U/L code = 2204) AST (test code = 2218) 40 U/L ALT (test code = 2219) 34 U/L THYROID II PROFILE (T3U, T4, T7, TSH)2019-07-11 00:00:00 Test Item Value Reference Range Interpretation Comments T-UPTAKE (test code = 2817) 24.3 % THYROX. BIND. CAPAC. (test 1.3 code = 04541) T4 (THYROXINE) (test code = 1.7 UG/DL 2819) CORRECTED T4 (FTI) (test code 1.3 UG/DL = 2820) TSH, THIRD GENERATION (test >100.000 UIU/ML code = 2821) THYROID II PROFILE (T3U, T4, T7, TSH)2019-07-11 00:00:00 Test Item Value Reference Range Interpretation Comments T-UPTAKE (test code = 281) 24.3 % THYROX. BIND. CAPAC. (test 1.3 code = 39188) T4 (THYROXINE) (test code = 1.7 UG/DL 2819) CORRECTED T4 (FTI) (test code 1.3 UG/DL = 2820) TSH, THIRD GENERATION (test >100.000 UIU/ML code = 2821) CBC W/AUTO [id number] 00:00:00 Test Item Value Reference Range Interpretation Comments WBC (test code = 1001) 4.0 K/UL RBC (test code = 1002) 3.81 M/UL HEMOGLOBIN (test code = 1003) 12.0 G/DL HEMATOCRIT (test code = 1004) 35.0 % MCV (test code = 1005) 91.9 fL MCH (test code = 1006) 31.5 PG MCHC (test code = 1007) 34.3 G/DL RDW (test code = 1038) 14.4 % NEUTROPHILS (test code = 1008) 61.2 % LYMPHOCYTES (test code = 1010) 26.6 % MONOCYTES (test code = 1011) 8.5 % EOSINOPHILS (test code = 1012) 2.7 % BASOPHILS (test code = 1013) 1.0 % PLATELET COUNT (test code = 1015) 245 K/UL CBC W/AUTO [id number] 00:00:00 Test Item Value Reference Range Interpretation Comments WBC (test code = 1001) 4.0 K/UL RBC (test code = 1002) 3.81 M/UL HEMOGLOBIN (test code = 1003) 12.0 G/DL HEMATOCRIT (test code = 1004) 35.0 % MCV (test code = 1005) 91.9 fL MCH (test code = 1006) 31.5 PG MCHC (test code = 1007) 34.3 G/DL RDW (test code = 1038) 14.4 % NEUTROPHILS (test code = 1008) 61.2 % LYMPHOCYTES (test code = 1010) 26.6 % MONOCYTES (test code = 1011) 8.5 % EOSINOPHILS (test code = 1012) 2.7 % BASOPHILS (test code = 1013) 1.0 % PLATELET COUNT (test code = 1015) 245 K/UL CBC W/AUTO [id number] 00:00:00 Test Item Value Reference Range Interpretation Comments WBC (test code = 1001) 4.0 K/UL RBC (test code = 1002) 3.81 M/UL HEMOGLOBIN (test code = 1003) 12.0 G/DL HEMATOCRIT (test code = 1004) 35.0 % MCV (test code = 1005) 91.9 fL MCH (test code = 1006) 31.5 PG MCHC (test code = 1007) 34.3 G/DL RDW (test code = 1038) 14.4 % NEUTROPHILS (test code = 1008) 61.2 % LYMPHOCYTES (test code = 1010) 26.6 % MONOCYTES (test code = 1011) 8.5 % EOSINOPHILS (test code = 1012) 2.7 % BASOPHILS (test code = 1013) 1.0 % PLATELET COUNT (test code = 1015) 245 K/UL LIPID [id number] 00:00:00 Test Item Value Reference Range Interpretation Comments CHOLESTEROL (test code = 2210) 291 MG/DL TRIGLYCERIDES (test code = 2232) 91 MG/DL HDL CHOLESTEROL (test code = 2220) 67 MG/DL CALC LDL CHOL (test code = 2237) 206 MG/DL RISK RATIO LDL/HDL (test code = 3.07 RATIO 2238) LIPID [id number] 00:00:00 Test Item Value Reference Range Interpretation Comments CHOLESTEROL (test code = 2210) 291 MG/DL TRIGLYCERIDES (test code = 2232) 91 MG/DL HDL CHOLESTEROL (test code = 2220) 67 MG/DL CALC LDL CHOL (test code = 2237) 206 MG/DL RISK RATIO LDL/HDL (test code = 3.07 RATIO 2238) COMPREHENSIVE METABOLIC [id number] 00:00:00 Test Item Value Reference Range Interpretation Comments GLUCOSE (test code = 2217) 77 MG/DL BUN (test code = 2208) 13 MG/DL CREATININE (test code = 2214) 0.73 MG/DL eGFR AMER. (test code 111 ML/MIN/1.73 = 15824) eGFR NON- AMER. (test 96 ML/MIN/1.73 code = 97235) CALC BUN/CREAT (test code = 18 RATIO 2235) SODIUM (test code = 2231) 143 MEQ/L POTASSIUM (test code = 2228) 5.2 MEQ/L CHLORIDE (test code = 2215) 104 MEQ/L CARBON DIOXIDE (test code = 27 MEQ/L 2205) CALCIUM (test code = 2209) 9.3 MG/DL PROTEIN, TOTAL (test code = 7.4 G/DL 2228) ALBUMIN (test code = 2201) 4.6 G/DL CALC GLOBULIN (test code = 2.8 G/DL 2240) CALC A/G RATIO (test code = 1.6 RATIO 2234) BILIRUBIN, TOTAL (test code = 0.4 MG/DL 2206) ALKALINE PHOSPHATASE (test 83 U/L code = 2204) AST (test code = 2218) 40 U/L ALT (test code = 2219) 34 U/L COMPREHENSIVE METABOLIC [id number] 00:00:00 Test Item Value Reference Range Interpretation Comments GLUCOSE (test code = 2217) 77 MG/DL BUN (test code = 2208) 13 MG/DL CREATININE (test code = 2214) 0.73 MG/DL eGFR AMER. (test code 111 ML/MIN/1.73 = 38719) eGFR NON- AMER. (test 96 ML/MIN/1.73 code = 81483) CALC BUN/CREAT (test code = 18 RATIO 2235) SODIUM (test code = 2231) 143 MEQ/L POTASSIUM (test code = 2228) 5.2 MEQ/L CHLORIDE (test code = 2215) 104 MEQ/L CARBON DIOXIDE (test code = 27 MEQ/L 2205) CALCIUM (test code = 2209) 9.3 MG/DL PROTEIN, TOTAL (test code = 7.4 G/DL 2228) ALBUMIN (test code = 2201) 4.6 G/DL CALC GLOBULIN (test code = 2.8 G/DL 2240) CALC A/G RATIO (test code = 1.6 RATIO 2234) BILIRUBIN, TOTAL (test code = 0.4 MG/DL 2206) ALKALINE PHOSPHATASE (test 83 U/L code = 2204) AST (test code = 2218) 40 U/L ALT (test code = 2219) 34 U/L THYROID II PROFILE (T3U, T4, T7, TSH)2019-07-11 00:00:00 Test Item Value Reference Range Interpretation Comments T-UPTAKE (test code = 2817) 24.3 % THYROX. BIND. CAPAC. (test 1.3 code = 78086) T4 (THYROXINE) (test code = 1.7 UG/DL 2819) CORRECTED T4 (FTI) (test code 1.3 UG/DL = 2820) TSH, THIRD GENERATION (test >100.000 UIU/ML code = 2821) THYROID II PROFILE (T3U, T4, T7, TSH)2019-07-11 00:00:00 Test Item Value Reference Range Interpretation Comments T-UPTAKE (test code = 2817) 24.3 % THYROX. BIND. CAPAC. (test 1.3 code = 22059) T4 (THYROXINE) (test code = 1.7 UG/DL 2819) CORRECTED T4 (FTI) (test code 1.3 UG/DL = 2820) TSH, THIRD GENERATION (test >100.000 UIU/ML code = 2821) CBC W/AUTO [id number] 00:00:00 Test Item Value Reference Range Interpretation Comments WBC (test code = 1001) 4.0 K/UL RBC (test code = 1002) 3.81 M/UL HEMOGLOBIN (test code = 1003) 12.0 G/DL HEMATOCRIT (test code = 1004) 35.0 % MCV (test code = 1005) 91.9 fL MCH (test code = 1006) 31.5 PG MCHC (test code = 1007) 34.3 G/DL RDW (test code = 1038) 14.4 % NEUTROPHILS (test code = 1008) 61.2 % LYMPHOCYTES (test code = 1010) 26.6 % MONOCYTES (test code = 1011) 8.5 % EOSINOPHILS (test code = 1012) 2.7 % BASOPHILS (test code = 1013) 1.0 % PLATELET COUNT (test code = 1015) 245 K/UL CBC W/AUTO [id number] 00:00:00 Test Item Value Reference Range Interpretation Comments WBC (test code = 1001) 4.0 K/UL RBC (test code = 1002) 3.81 M/UL HEMOGLOBIN (test code = 1003) 12.0 G/DL HEMATOCRIT (test code = 1004) 35.0 % MCV (test code = 1005) 91.9 fL MCH (test code = 1006) 31.5 PG MCHC (test code = 1007) 34.3 G/DL RDW (test code = 1038) 14.4 % NEUTROPHILS (test code = 1008) 61.2 % LYMPHOCYTES (test code = 1010) 26.6 % MONOCYTES (test code = 1011) 8.5 % EOSINOPHILS (test code = 1012) 2.7 % BASOPHILS (test code = 1013) 1.0 % PLATELET COUNT (test code = 1015) 245 K/UL LIPID [id number] 00:00:00 Test Item Value Reference Range Interpretation Comments CHOLESTEROL (test code = 2210) 291 MG/DL TRIGLYCERIDES (test code = 2232) 91 MG/DL HDL CHOLESTEROL (test code = 2220) 67 MG/DL CALC LDL CHOL (test code = 2237) 206 MG/DL RISK RATIO LDL/HDL (test code = 3.07 RATIO 2238) COMPREHENSIVE METABOLIC [id number] 00:00:00 Test Item Value Reference Range Interpretation Comments GLUCOSE (test code = 2217) 77 MG/DL BUN (test code = 2208) 13 MG/DL CREATININE (test code = 2214) 0.73 MG/DL eGFR AMER. (test code 111 ML/MIN/1.73 = 81202) eGFR NON- AMER. (test 96 ML/MIN/1.73 code = 20928) CALC BUN/CREAT (test code = 18 RATIO 2235) SODIUM (test code = 2231) 143 MEQ/L POTASSIUM (test code = 2228) 5.2 MEQ/L CHLORIDE (test code = 2215) 104 MEQ/L CARBON DIOXIDE (test code = 27 MEQ/L 2205) CALCIUM (test code = 2209) 9.3 MG/DL PROTEIN, TOTAL (test code = 7.4 G/DL 2228) ALBUMIN (test code = 2201) 4.6 G/DL CALC GLOBULIN (test code = 2.8 G/DL 2240) CALC A/G RATIO (test code = 1.6 RATIO 2234) BILIRUBIN, TOTAL (test code = 0.4 MG/DL 2206) ALKALINE PHOSPHATASE (test 83 U/L code = 2204) AST (test code = 2218) 40 U/L ALT (test code = 2219) 34 U/L THYROID II PROFILE (T3U, T4, T7, TSH)2019-01-05 00:00:00 Test Item Value Reference Range Interpretation Comments T-UPTAKE (test code = 281) 24.3 % THYROX. BIND. CAPAC. (test 1.3 code = 15196) T4 (THYROXINE) (test code = 1.1 UG/DL 281) CORRECTED T4 (FTI) (test code 0.8 UG/DL = 2820) TSH, THIRD GENERATION (test >100.000 UIU/ML code = 2821) THYROID II PROFILE (T3U, T4, T7, TSH)2019-01-05 00:00:00 Test Item Value Reference Range Interpretation Comments T-UPTAKE (test code = 2817) 24.3 % THYROX. BIND. CAPAC. (test 1.3 code = 71757) T4 (THYROXINE) (test code = 1.1 UG/DL 2819) CORRECTED T4 (FTI) (test code 0.8 UG/DL = 2820) TSH, THIRD GENERATION (test >100.000 UIU/ML code = 2821) THYROID II PROFILE (T3U, T4, T7, TSH)2019-01-05 00:00:00 Test Item Value Reference Range Interpretation Comments T-UPTAKE (test code = 2817) 24.3 % THYROX. BIND. CAPAC. (test 1.3 code = 42798) T4 (THYROXINE) (test code = 1.1 UG/DL 2819) CORRECTED T4 (FTI) (test code 0.8 UG/DL = 2820) TSH, THIRD GENERATION (test >100.000 UIU/ML code = 2821) THYROID II PROFILE (T3U, T4, T7, TSH)2019-01-05 00:00:00 Test Item Value Reference Range Interpretation Comments T-UPTAKE (test code = 2817) 24.3 % THYROX. BIND. CAPAC. (test 1.3 code = 35346) T4 (THYROXINE) (test code = 1.1 UG/DL 2819) CORRECTED T4 (FTI) (test code 0.8 UG/DL = 2820) TSH, THIRD GENERATION (test >100.000 UIU/ML code = 2821) THYROID II PROFILE (T3U, T4, T7, TSH)2019-01-05 00:00:00 Test Item Value Reference Range Interpretation Comments T-UPTAKE (test code = 2817) 24.3 % THYROX. BIND. CAPAC. (test 1.3 code = 16718) T4 (THYROXINE) (test code = 1.1 UG/DL 2819) CORRECTED T4 (FTI) (test code 0.8 UG/DL = 2820) TSH, THIRD GENERATION (test >100.000 UIU/ML code = 2821) [id number] 00:00:00 Test Item Value Reference Range Interpretation Comments TSH (test code = 2821) 0.167 UIU/ML [id number] 00:00:00 Test Item Value Reference Range Interpretation Comments TSH (test code = 2821) 0.167 UIU/ML HEMOGLOBIN [id number] 00:00:00 Test Item Value Reference Range Interpretation Comments HEMOGLOBIN A1c (test code = 90073) 5.3 % HEMOGLOBIN [id number] 00:00:00 Test Item Value Reference Range Interpretation Comments HEMOGLOBIN A1c (test code = 61080) 5.3 % HEMOGLOBIN [id number] 00:00:00 Test Item Value Reference Range Interpretation Comments HEMOGLOBIN A1c (test code = 07882) 5.3 % COMPREHENSIVE METABOLIC [id number] 00:00:00 Test Item Value Reference Range Interpretation Comments GLUCOSE (test code = 2217) 105 MG/DL BUN (test code = 2208) 13 MG/DL CREATININE (test code = 2214) 0.58 MG/DL eGFR AMER. (test code 126 ML/MIN/1.73 = 33344) eGFR NON- AMER. (test 109 ML/MIN/1.73 code = 56913) CALC BUN/CREAT (test code = 22 RATIO 2235) SODIUM (test code = 2231) 139 MEQ/L POTASSIUM (test code = 2228) 4.1 MEQ/L CHLORIDE (test code = 2215) 100 MEQ/L CARBON DIOXIDE (test code = 25 MEQ/L 2205) CALCIUM (test code = 2209) 9.6 MG/DL PROTEIN, TOTAL (test code = 7.8 G/DL 2228) ALBUMIN (test code = 2201) 4.3 G/DL CALC GLOBULIN (test code = 3.5 G/DL 0) CALC A/G RATIO (test code = 1.2 RATIO 4) BILIRUBIN, TOTAL (test code = 0.2 MG/DL 2206) ALKALINE PHOSPHATASE (test 108 U/L code = 2204) AST (test code = 2218) 23 U/L ALT (test code = 2219) 12 U/L COMPREHENSIVE METABOLIC [id number] 00:00:00 Test Item Value Reference Range Interpretation Comments GLUCOSE (test code = 2217) 105 MG/DL BUN (test code = 2208) 13 MG/DL CREATININE (test code = 2214) 0.58 MG/DL eGFR AMER. (test code 126 ML/MIN/1.73 = 04501) eGFR NON- AMER. (test 109 ML/MIN/1.73 code = 10084) CALC BUN/CREAT (test code = 22 RATIO 2235) SODIUM (test code = 2231) 139 MEQ/L POTASSIUM (test code = 2228) 4.1 MEQ/L CHLORIDE (test code = 2215) 100 MEQ/L CARBON DIOXIDE (test code = 25 MEQ/L 2205) CALCIUM (test code = 2209) 9.6 MG/DL PROTEIN, TOTAL (test code = 7.8 G/DL 2228) ALBUMIN (test code = 2201) 4.3 G/DL CALC GLOBULIN (test code = 3.5 G/DL 2239) CALC A/G RATIO (test code = 1.2 RATIO 2233) BILIRUBIN, TOTAL (test code = 0.2 MG/DL 2206) ALKALINE PHOSPHATASE (test 108 U/L code = 220) AST (test code = 2218) 23 U/L ALT (test code = 2219) 12 U/L CBC W/AUTO [id number] 00:00:00 Test Item Value Reference Range Interpretation Comments WBC (test code = 1001) 6.6 K/UL RBC (test code = 1002) 4.15 M/UL HEMOGLOBIN (test code = 1003) 9.4 G/DL HEMATOCRIT (test code = 1004) 29.9 % MCV (test code = 1005) 72.0 fL MCH (test code = 1006) 22.7 PG MCHC (test code = 1007) 31.4 G/DL RDW (test code = 1038) 15.7 % NEUTROPHILS (test code = 1008) 60.8 % LYMPHOCYTES (test code = 1010) 30.6 % MONOCYTES (test code = 1011) 7.6 % EOSINOPHILS (test code = 1012) 0.2 % BASOPHILS (test code = 1013) 0.8 % PLATELET COUNT (test code = 1015) 446 K/UL CBC W/AUTO [id number] 00:00:00 Test Item Value Reference Range Interpretation Comments WBC (test code = 1001) 6.6 K/UL RBC (test code = 1002) 4.15 M/UL HEMOGLOBIN (test code = 1003) 9.4 G/DL HEMATOCRIT (test code = 1004) 29.9 % MCV (test code = 1005) 72.0 fL MCH (test code = 1006) 22.7 PG MCHC (test code = 1007) 31.4 G/DL RDW (test code = 1038) 15.7 % NEUTROPHILS (test code = 1008) 60.8 % LYMPHOCYTES (test code = 1010) 30.6 % MONOCYTES (test code = 1011) 7.6 % EOSINOPHILS (test code = 1012) 0.2 % BASOPHILS (test code = 1013) 0.8 % PLATELET COUNT (test code = 1015) 446 K/UL CBC W/AUTO [id number] 00:00:00 Test Item Value Reference Range Interpretation Comments WBC (test code = 1001) 6.6 K/UL RBC (test code = 1002) 4.15 M/UL HEMOGLOBIN (test code = 1003) 9.4 G/DL HEMATOCRIT (test code = 1004) 29.9 % MCV (test code = 1005) 72.0 fL MCH (test code = 1006) 22.7 PG MCHC (test code = 1007) 31.4 G/DL RDW (test code = 1038) 15.7 % NEUTROPHILS (test code = 1008) 60.8 % LYMPHOCYTES (test code = 1010) 30.6 % MONOCYTES (test code = 1011) 7.6 % EOSINOPHILS (test code = 1012) 0.2 % BASOPHILS (test code = 1013) 0.8 % PLATELET COUNT (test code = 1015) 446 K/UL [id number] 00:00:00 Test Item Value Reference Range Interpretation Comments TSH (test code = 2821) 0.167 UIU/ML [id number] 00:00:00 Test Item Value Reference Range Interpretation Comments TSH (test code = 2821) 0.167 UIU/ML [id number] 00:00:00 Test Item Value Reference Range Interpretation Comments TSH (test code = 2821) 0.167 UIU/ML HEMOGLOBIN [id number] 00:00:00 Test Item Value Reference Range Interpretation Comments HEMOGLOBIN A1c (test code = 10723) 5.3 % HEMOGLOBIN [id number] 00:00:00 Test Item Value Reference Range Interpretation Comments HEMOGLOBIN A1c (test code = 84101) 5.3 % HEMOGLOBIN [id number] 00:00:00 Test Item Value Reference Range Interpretation Comments HEMOGLOBIN A1c (test code = 12625) 5.3 % COMPREHENSIVE METABOLIC [id number] 00:00:00 Test Item Value Reference Range Interpretation Comments GLUCOSE (test code = 2217) 105 MG/DL BUN (test code = 2208) 13 MG/DL CREATININE (test code = 2214) 0.58 MG/DL eGFR AMER. (test code 126 ML/MIN/1.73 = 64685) eGFR NON- AMER. (test 109 ML/MIN/1.73 code = 53597) CALC BUN/CREAT (test code = 22 RATIO 2235) SODIUM (test code = 2231) 139 MEQ/L POTASSIUM (test code = 2228) 4.1 MEQ/L CHLORIDE (test code = 2215) 100 MEQ/L CARBON DIOXIDE (test code = 25 MEQ/L 2206) CALCIUM (test code = 2209) 9.6 MG/DL PROTEIN, TOTAL (test code = 7.8 G/DL 2228) ALBUMIN (test code = 2201) 4.3 G/DL CALC GLOBULIN (test code = 3.5 G/DL 2240) CALC A/G RATIO (test code = 1.2 RATIO 4) BILIRUBIN, TOTAL (test code = 0.2 MG/DL 2206) ALKALINE PHOSPHATASE (test 108 U/L code = 2204) AST (test code = 2218) 23 U/L ALT (test code = 2219) 12 U/L COMPREHENSIVE METABOLIC [id number] 00:00:00 Test Item Value Reference Range Interpretation Comments GLUCOSE (test code = 2217) 105 MG/DL BUN (test code = 2208) 13 MG/DL CREATININE (test code = 2214) 0.58 MG/DL eGFR AMER. (test code 126 ML/MIN/1.73 = 90174) eGFR NON- AMER. (test 109 ML/MIN/1.73 code = 04950) CALC BUN/CREAT (test code = 22 RATIO 2235) SODIUM (test code = 2231) 139 MEQ/L POTASSIUM (test code = 2228) 4.1 MEQ/L CHLORIDE (test code = 2215) 100 MEQ/L CARBON DIOXIDE (test code = 25 MEQ/L 220) CALCIUM (test code = 2209) 9.6 MG/DL PROTEIN, TOTAL (test code = 7.8 G/DL 2229) ALBUMIN (test code = 2201) 4.3 G/DL CALC GLOBULIN (test code = 3.5 G/DL 2240) CALC A/G RATIO (test code = 1.2 RATIO 2234) BILIRUBIN, TOTAL (test code = 0.2 MG/DL 2207) ALKALINE PHOSPHATASE (test 108 U/L code = 2204) AST (test code = 2218) 23 U/L ALT (test code = 2219) 12 U/L CBC W/AUTO [id number] 00:00:00 Test Item Value Reference Range Interpretation Comments WBC (test code = 1001) 6.6 K/UL RBC (test code = 1002) 4.15 M/UL HEMOGLOBIN (test code = 1003) 9.4 G/DL HEMATOCRIT (test code = 1004) 29.9 % MCV (test code = 1005) 72.0 fL MCH (test code = 1006) 22.7 PG MCHC (test code = 1007) 31.4 G/DL RDW (test code = 1038) 15.7 % NEUTROPHILS (test code = 1008) 60.8 % LYMPHOCYTES (test code = 1010) 30.6 % MONOCYTES (test code = 1011) 7.6 % EOSINOPHILS (test code = 1012) 0.2 % BASOPHILS (test code = 1013) 0.8 % PLATELET COUNT (test code = 1015) 446 K/UL CBC W/AUTO [id number] 00:00:00 Test Item Value Reference Range Interpretation Comments WBC (test code = 1001) 6.6 K/UL RBC (test code = 1002) 4.15 M/UL HEMOGLOBIN (test code = 1003) 9.4 G/DL HEMATOCRIT (test code = 1004) 29.9 % MCV (test code = 1005) 72.0 fL MCH (test code = 1006) 22.7 PG MCHC (test code = 1007) 31.4 G/DL RDW (test code = 1038) 15.7 % NEUTROPHILS (test code = 1008) 60.8 % LYMPHOCYTES (test code = 1010) 30.6 % MONOCYTES (test code = 1011) 7.6 % EOSINOPHILS (test code = 1012) 0.2 % BASOPHILS (test code = 1013) 0.8 % PLATELET COUNT (test code = 1015) 446 K/UL CBC W/AUTO [id number] 00:00:00 Test Item Value Reference Range Interpretation Comments WBC (test code = 1001) 6.6 K/UL RBC (test code = 1002) 4.15 M/UL HEMOGLOBIN (test code = 1003) 9.4 G/DL HEMATOCRIT (test code = 1004) 29.9 % MCV (test code = 1005) 72.0 fL MCH (test code = 1006) 22.7 PG MCHC (test code = 1007) 31.4 G/DL RDW (test code = 1038) 15.7 % NEUTROPHILS (test code = 1008) 60.8 % LYMPHOCYTES (test code = 1010) 30.6 % MONOCYTES (test code = 1011) 7.6 % EOSINOPHILS (test code = 1012) 0.2 % BASOPHILS (test code = 1013) 0.8 % PLATELET COUNT (test code = 1015) 446 K/UL [id number] 00:00:00 Test Item Value Reference Range Interpretation Comments TSH (test code = 2821) 0.167 UIU/ML [id number] 00:00:00 Test Item Value Reference Range Interpretation Comments TSH (test code = 2821) 0.167 UIU/ML [id number] 00:00:00 Test Item Value Reference Range Interpretation Comments TSH (test code = 2821) 0.167 UIU/ML HEMOGLOBIN [id number] 00:00:00 Test Item Value Reference Range Interpretation Comments HEMOGLOBIN A1c (test code = 11607) 5.3 % HEMOGLOBIN [id number] 00:00:00 Test Item Value Reference Range Interpretation Comments HEMOGLOBIN A1c (test code = 20683) 5.3 % COMPREHENSIVE METABOLIC [id number] 00:00:00 Test Item Value Reference Range Interpretation Comments GLUCOSE (test code = 2217) 105 MG/DL BUN (test code = 2208) 13 MG/DL CREATININE (test code = 2214) 0.58 MG/DL eGFR AMER. (test code 126 ML/MIN/1.73 = 68942) eGFR NON- AMER. (test 109 ML/MIN/1.73 code = 97481) CALC BUN/CREAT (test code = 22 RATIO 2235) SODIUM (test code = 2231) 139 MEQ/L POTASSIUM (test code = 2228) 4.1 MEQ/L CHLORIDE (test code = 2215) 100 MEQ/L CARBON DIOXIDE (test code = 25 MEQ/L 2205) CALCIUM (test code = 2209) 9.6 MG/DL PROTEIN, TOTAL (test code = 7.8 G/DL 2228) ALBUMIN (test code = 2201) 4.3 G/DL CALC GLOBULIN (test code = 3.5 G/DL 2239) CALC A/G RATIO (test code = 1.2 RATIO 2233) BILIRUBIN, TOTAL (test code = 0.2 MG/DL 2206) ALKALINE PHOSPHATASE (test 108 U/L code = 2204) AST (test code = 2218) 23 U/L ALT (test code = 2219) 12 U/L CBC W/AUTO [id number] 00:00:00 Test Item Value Reference Range Interpretation Comments WBC (test code = 1001) 6.6 K/UL RBC (test code = 1002) 4.15 M/UL HEMOGLOBIN (test code = 1003) 9.4 G/DL HEMATOCRIT (test code = 1004) 29.9 % MCV (test code = 1005) 72.0 fL MCH (test code = 1006) 22.7 PG MCHC (test code = 1007) 31.4 G/DL RDW (test code = 1038) 15.7 % NEUTROPHILS (test code = 1008) 60.8 % LYMPHOCYTES (test code = 1010) 30.6 % MONOCYTES (test code = 1011) 7.6 % EOSINOPHILS (test code = 1012) 0.2 % BASOPHILS (test code = 1013) 0.8 % PLATELET COUNT (test code = 1015) 446 K/UL CBC W/AUTO [id number] 00:00:00 Test Item Value Reference Range Interpretation Comments WBC (test code = 1001) 6.6 K/UL RBC (test code = 1002) 4.15 M/UL HEMOGLOBIN (test code = 1003) 9.4 G/DL HEMATOCRIT (test code = 1004) 29.9 % MCV (test code = 1005) 72.0 fL MCH (test code = 1006) 22.7 PG MCHC (test code = 1007) 31.4 G/DL RDW (test code = 1038) 15.7 % NEUTROPHILS (test code = 1008) 60.8 % LYMPHOCYTES (test code = 1010) 30.6 % MONOCYTES (test code = 1011) 7.6 % EOSINOPHILS (test code = 1012) 0.2 % BASOPHILS (test code = 1013) 0.8 % PLATELET COUNT (test code = 1015) 446 K/UL TSH REFLEX TO FREE [id number] 00:00:00 Test Item Value Reference Range Interpretation Comments TSH REFLEX TO FREE T4 (test code 0.056 UIU/ML = 2834) TSH REFLEX TO FREE [id number] 00:00:00 Test Item Value Reference Range Interpretation Comments TSH REFLEX TO FREE T4 (test code 0.056 UIU/ML = 2834) FREE T4 (THYROXINE) [REFLEX]2017-01-22 00:00:00 Test Item Value Reference Range Interpretation Comments FREE T4 (THYROXINE) (test code = 1.97 NG/DL 2823) FREE T4 (THYROXINE) [REFLEX]2017-01-22 00:00:00 Test Item Value Reference Range Interpretation Comments FREE T4 (THYROXINE) (test code = 1.97 NG/DL 2823) FREE T4 (THYROXINE) [REFLEX]2017-01-22 00:00:00 Test Item Value Reference Range Interpretation Comments FREE T4 (THYROXINE) (test code = 1.97 NG/DL 2823) TSH REFLEX TO FREE [id number] 00:00:00 Test Item Value Reference Range Interpretation Comments TSH REFLEX TO FREE T4 (test code 0.056 UIU/ML = 2834) TSH REFLEX TO FREE [id number] 00:00:00 Test Item Value Reference Range Interpretation Comments TSH REFLEX TO FREE T4 (test code 0.056 UIU/ML = 2834) FREE T4 (THYROXINE) [REFLEX]2017-01-22 00:00:00 Test Item Value Reference Range Interpretation Comments FREE T4 (THYROXINE) (test code = 1.97 NG/DL 2823) FREE T4 (THYROXINE) [REFLEX]2017-01-22 00:00:00 Test Item Value Reference Range Interpretation Comments FREE T4 (THYROXINE) (test code = 1.97 NG/DL 2823) FREE T4 (THYROXINE) [REFLEX]2017-01-22 00:00:00 Test Item Value Reference Range Interpretation Comments FREE T4 (THYROXINE) (test code = 1.97 NG/DL 2823) TSH REFLEX TO FREE [id number] 00:00:00 Test Item Value Reference Range Interpretation Comments TSH REFLEX TO FREE T4 (test code 0.056 UIU/ML = 2834) FREE T4 (THYROXINE) [REFLEX]2017-01-22 00:00:00 Test Item Value Reference Range Interpretation Comments FREE T4 (THYROXINE) (test code = 1.97 NG/DL 2823) FREE T4 (THYROXINE) [REFLEX]2017-01-22 00:00:00 Test Item Value Reference Range Interpretation Comments FREE T4 (THYROXINE) (test code = 1.97 NG/DL 2823) [id number] 00:00:00 Test Item Value Reference Range Interpretation Comments TSH (test code = 2821) >100.00 UIU/ML [id number] 00:00:00 Test Item Value Reference Range Interpretation Comments TSH (test code = 2821) >100.00 UIU/ML [id number] 00:00:00 Test Item Value Reference Range Interpretation Comments TSH (test code = 2821) >100.00 UIU/ML [id number] 00:00:00 Test Item Value Reference Range Interpretation Comments TSH (test code = 2821) >100.00 UIU/ML [id number] 00:00:00 Test Item Value Reference Range Interpretation Comments TSH (test code = 2821) >100.00 UIU/ML [id number] 00:00:00 Test Item Value Reference Range Interpretation Comments TSH (test code = 2821) >100.00 UIU/ML [id number] 00:00:00 Test Item Value Reference Range Interpretation Comments TSH (test code = 2821) >100.00 UIU/ML [id number] 00:00:00 Test Item Value Reference Range Interpretation Comments TSH (test code = 2821) >100.00 UIU/ML THYROID II PROFILE (T3U, T4, T7, TSH)2016-08-10 00:00:00 Test Item Value Reference Range Interpretation Comments T3 UPTAKE (test code = 2817) 19.2 % T4 (THYROXINE) (test code = <0.7 UG/DL 2819) CALCULATED T7 (FTI) (test code (NOTE) = 2820) TSH (test code = 2821) >150.0 UIU/ML THYROID II PROFILE (T3U, T4, T7, TSH)2016-08-10 00:00:00 Test Item Value Reference Range Interpretation Comments T3 UPTAKE (test code = 2817) 19.2 % T4 (THYROXINE) (test code = <0.7 UG/DL 2819) CALCULATED T7 (FTI) (test code (NOTE) = 2820) TSH (test code = 2821) >150.0 UIU/ML THYROID II PROFILE (T3U, T4, T7, TSH)2016-08-10 00:00:00 Test Item Value Reference Range Interpretation Comments T3 UPTAKE (test code = 2817) 19.2 % T4 (THYROXINE) (test code = <0.7 UG/DL 2819) CALCULATED T7 (FTI) (test code (NOTE) = 2820) TSH (test code = 2821) >150.0 UIU/ML THYROID II PROFILE (T3U, T4, T7, TSH)2016-08-10 00:00:00 Test Item Value Reference Range Interpretation Comments T3 UPTAKE (test code = 2817) 19.2 % T4 (THYROXINE) (test code = <0.7 UG/DL 2819) CALCULATED T7 (FTI) (test code (NOTE) = 2820) TSH (test code = 2821) >150.0 UIU/ML THYROID II PROFILE (T3U, T4, T7, TSH)2016-08-10 00:00:00 Test Item Value Reference Range Interpretation Comments T3 UPTAKE (test code = 2817) 19.2 % T4 (THYROXINE) (test code = <0.7 UG/DL 2819) CALCULATED T7 (FTI) (test code (NOTE) = 2820) TSH (test code = 2821) >150.0 UIU/ML HEMOGLOBIN [id number] 00:00:00 Test Item Value Reference Range Interpretation Comments HEMOGLOBIN A1c (test code = 44829) 5.8 % HEMOGLOBIN [id number] 00:00:00 Test Item Value Reference Range Interpretation Comments HEMOGLOBIN A1c (test code = 32249) 5.8 % HEMOGLOBIN [id number] 00:00:00 Test Item Value Reference Range Interpretation Comments HEMOGLOBIN A1c (test code = 04019) 5.8 % HEMOGLOBIN [id number] 00:00:00 Test Item Value Reference Range Interpretation Comments HEMOGLOBIN A1c (test code = 17394) 5.8 % HEMOGLOBIN [id number] 00:00:00 Test Item Value Reference Range Interpretation Comments HEMOGLOBIN A1c (test code = 83206) 5.8 % HEMOGLOBIN [id number] 00:00:00 Test Item Value Reference Range Interpretation Comments HEMOGLOBIN A1c (test code = 00582) 5.8 % HEMOGLOBIN [id number] 00:00:00 Test Item Value Reference Range Interpretation Comments HEMOGLOBIN A1c (test code = 82929) 5.8 % HEMOGLOBIN [id number] 00:00:00 Test Item Value Reference Range Interpretation Comments HEMOGLOBIN A1c (test code = 03301) 5.8 % HEMOGLOBIN [id number] 00:00:00 Test Item Value Reference Range Interpretation Comments HEMOGLOBIN A1c (test code = 77184) 6.2 % HEMOGLOBIN [id number] 00:00:00 Test Item Value Reference Range Interpretation Comments HEMOGLOBIN A1c (test code = 57330) 6.2 % THYROID II PROFILE (T3U, T4, T7, TSH)2015-07-04 00:00:00 Test Item Value Reference Range Interpretation Comments T3 UPTAKE (test code = 2817) 22.2 % T4 (THYROXINE) (test code = 2819) 3.2 UG/DL CALCULATED T7 (FTI) (test code = 0.71 2820) TSH (test code = 2821) 84.4 UIU/ML LIPID [id number] 00:00:00 Test Item Value Reference Range Interpretation Comments CHOLESTEROL (test code = 2210) 276 MG/DL TRIGLYCERIDES (test code = 2232) 116 MG/DL HDL CHOLESTEROL (test code = 2220) 44 MG/DL CALCULATED LDL CHOL (test code = 209 MG/DL 2236) RISK RATIO LDL/HDL (test code = 4.75 RATIO 2238) COMPREHENSIVE METABOLIC [id number] 00:00:00 Test Item Value Reference Range Interpretation Comments GLUCOSE (test code = 2217) 86 MG/DL BUN (test code = 2208) 14 MG/DL CREATININE (test code = 2214) 0.8 MG/DL eGFR AMER. (test code 93 ML/MIN/1.73 = 19873) eGFR NON- AMER. (test 77 ML/MIN/1.73 code = 30636) CALCULATED BUN/CREAT (test 18 RATIO code = 2235) SODIUM (test code = 2231) 139 MEQ/L POTASSIUM (test code = 2228) 4.2 MEQ/L CHLORIDE (test code = 2215) 103 MEQ/L CARBON DIOXIDE (test code = 25 MEQ/L 2205) CALCIUM (test code = 2209) 9.7 MG/DL PROTEIN, TOTAL (test code = 7.6 G/DL 2228) ALBUMIN (test code = 2201) 4.6 G/DL CALCULATED GLOBULIN (test code 3.0 G/DL = 2240) CALCULATED A/G RATIO (test 1.5 RATIO code = 2234) BILIRUBIN, TOTAL (test code = 0.6 MG/DL 2206) ALKALINE PHOSPHATASE (test 71 U/L code = 2204) SGOT (AST) (test code = 2218) 20 U/L SGPT (ALT) (test code = 2219) 12 U/L COMPREHENSIVE METABOLIC [id number] 00:00:00 Test Item Value Reference Range Interpretation Comments GLUCOSE (test code = 2217) 86 MG/DL BUN (test code = 2208) 14 MG/DL CREATININE (test code = 2214) 0.8 MG/DL eGFR AMER. (test code 93 ML/MIN/1.73 = 82185) eGFR NON- AMER. (test 77 ML/MIN/1.73 code = 67896) CALCULATED BUN/CREAT (test 18 RATIO code = 2235) SODIUM (test code = 2231) 139 MEQ/L POTASSIUM (test code = 2228) 4.2 MEQ/L CHLORIDE (test code = 2215) 103 MEQ/L CARBON DIOXIDE (test code = 25 MEQ/L 2205) CALCIUM (test code = 2209) 9.7 MG/DL PROTEIN, TOTAL (test code = 7.6 G/DL 2228) ALBUMIN (test code = 2201) 4.6 G/DL CALCULATED GLOBULIN (test code 3.0 G/DL = 2240) CALCULATED A/G RATIO (test 1.5 RATIO code = 2234) BILIRUBIN, TOTAL (test code = 0.6 MG/DL 2206) ALKALINE PHOSPHATASE (test 71 U/L code = 2204) SGOT (AST) (test code = 2218) 20 U/L SGPT (ALT) (test code = 2219) 12 U/L CBC W/AUTO [id number] 00:00:00 Test Item Value Reference Range Interpretation Comments WBC (test code = 1001) 7.0 K/UL RBC (test code = 1002) 4.41 M/UL HEMOGLOBIN (test code = 1003) 13.5 G/DL HEMATOCRIT (test code = 1004) 39.6 % MCV (test code = 1005) 89.8 fL MCH (test code = 1006) 30.6 PG MCHC (test code = 1007) 34.1 G/DL RDW (test code = 1038) 14.3 % NEUTROPHILS (test code = 1008) 59 % LYMPHOCYTES (test code = 1010) 33 % MONOCYTES (test code = 1011) 6 % EOSINOPHILS (test code = 1012) 1 % BASOPHILS (test code = 1013) % PLATELET COUNT (test code = 1015) 351 K/UL CBC W/AUTO [id number] 00:00:00 Test Item Value Reference Range Interpretation Comments WBC (test code = 1001) 7.0 K/UL RBC (test code = 1002) 4.41 M/UL HEMOGLOBIN (test code = 1003) 13.5 G/DL HEMATOCRIT (test code = 1004) 39.6 % MCV (test code = 1005) 89.8 fL MCH (test code = 1006) 30.6 PG MCHC (test code = 1007) 34.1 G/DL RDW (test code = 1038) 14.3 % NEUTROPHILS (test code = 1008) 59 % LYMPHOCYTES (test code = 1010) 33 % MONOCYTES (test code = 1011) 6 % EOSINOPHILS (test code = 1012) 1 % BASOPHILS (test code = 1013) % PLATELET COUNT (test code = 1015) 351 K/UL CBC W/AUTO [id number] 00:00:00 Test Item Value Reference Range Interpretation Comments WBC (test code = 1001) 7.0 K/UL RBC (test code = 1002) 4.41 M/UL HEMOGLOBIN (test code = 1003) 13.5 G/DL HEMATOCRIT (test code = 1004) 39.6 % MCV (test code = 1005) 89.8 fL MCH (test code = 1006) 30.6 PG MCHC (test code = 1007) 34.1 G/DL RDW (test code = 1038) 14.3 % NEUTROPHILS (test code = 1008) 59 % LYMPHOCYTES (test code = 1010) 33 % MONOCYTES (test code = 1011) 6 % EOSINOPHILS (test code = 1012) 1 % BASOPHILS (test code = 1013) % PLATELET COUNT (test code = 1015) 351 K/UL HEMOGLOBIN [id number] 00:00:00 Test Item Value Reference Range Interpretation Comments HEMOGLOBIN A1c (test code = 70769) 6.2 % HEMOGLOBIN [id number] 00:00:00 Test Item Value Reference Range Interpretation Comments HEMOGLOBIN A1c (test code = 22402) 6.2 % HEMOGLOBIN [id number] 00:00:00 Test Item Value Reference Range Interpretation Comments HEMOGLOBIN A1c (test code = 81055) 6.2 % THYROID II PROFILE (T3U, T4, T7, TSH)2015-07-04 00:00:00 Test Item Value Reference Range Interpretation Comments T3 UPTAKE (test code = 2817) 22.2 % T4 (THYROXINE) (test code = 2819) 3.2 UG/DL CALCULATED T7 (FTI) (test code = 0.71 2820) TSH (test code = 2821) 84.4 UIU/ML THYROID II PROFILE (T3U, T4, T7, TSH)2015-07-04 00:00:00 Test Item Value Reference Range Interpretation Comments T3 UPTAKE (test code = 2817) 22.2 % T4 (THYROXINE) (test code = 2819) 3.2 UG/DL CALCULATED T7 (FTI) (test code = 0.71 2820) TSH (test code = 2821) 84.4 UIU/ML LIPID [id number] 00:00:00 Test Item Value Reference Range Interpretation Comments CHOLESTEROL (test code = 2210) 276 MG/DL TRIGLYCERIDES (test code = 2232) 116 MG/DL HDL CHOLESTEROL (test code = 2220) 44 MG/DL CALCULATED LDL CHOL (test code = 209 MG/DL 2236) RISK RATIO LDL/HDL (test code = 4.75 RATIO 2238) LIPID [id number] 00:00:00 Test Item Value Reference Range Interpretation Comments CHOLESTEROL (test code = 2210) 276 MG/DL TRIGLYCERIDES (test code = 2232) 116 MG/DL HDL CHOLESTEROL (test code = 2220) 44 MG/DL CALCULATED LDL CHOL (test code = 209 MG/DL 2237) RISK RATIO LDL/HDL (test code = 4.75 RATIO 2238) COMPREHENSIVE METABOLIC [id number] 00:00:00 Test Item Value Reference Range Interpretation Comments GLUCOSE (test code = 2217) 86 MG/DL BUN (test code = 2208) 14 MG/DL CREATININE (test code = 2214) 0.8 MG/DL eGFR AMER. (test code 93 ML/MIN/1.73 = 87521) eGFR NON- AMER. (test 77 ML/MIN/1.73 code = 34612) CALCULATED BUN/CREAT (test 18 RATIO code = 2235) SODIUM (test code = 2231) 139 MEQ/L POTASSIUM (test code = 2228) 4.2 MEQ/L CHLORIDE (test code = 2215) 103 MEQ/L CARBON DIOXIDE (test code = 25 MEQ/L 2206) CALCIUM (test code = 2209) 9.7 MG/DL PROTEIN, TOTAL (test code = 7.6 G/DL 2228) ALBUMIN (test code = 2201) 4.6 G/DL CALCULATED GLOBULIN (test code 3.0 G/DL = 2240) CALCULATED A/G RATIO (test 1.5 RATIO code = 2234) BILIRUBIN, TOTAL (test code = 0.6 MG/DL 2206) ALKALINE PHOSPHATASE (test 71 U/L code = 2204) SGOT (AST) (test code = 2218) 20 U/L SGPT (ALT) (test code = 2219) 12 U/L COMPREHENSIVE METABOLIC [id number] 00:00:00 Test Item Value Reference Range Interpretation Comments GLUCOSE (test code = 2217) 86 MG/DL BUN (test code = 2208) 14 MG/DL CREATININE (test code = 2214) 0.8 MG/DL eGFR AMER. (test code 93 ML/MIN/1.73 = 19525) eGFR NON- AMER. (test 77 ML/MIN/1.73 code = 49496) CALCULATED BUN/CREAT (test 18 RATIO code = 2235) SODIUM (test code = 2231) 139 MEQ/L POTASSIUM (test code = 2228) 4.2 MEQ/L CHLORIDE (test code = 2215) 103 MEQ/L CARBON DIOXIDE (test code = 25 MEQ/L 2206) CALCIUM (test code = 2209) 9.7 MG/DL PROTEIN, TOTAL (test code = 7.6 G/DL 2229) ALBUMIN (test code = 2201) 4.6 G/DL CALCULATED GLOBULIN (test code 3.0 G/DL = 2240) CALCULATED A/G RATIO (test 1.5 RATIO code = 2234) BILIRUBIN, TOTAL (test code = 0.6 MG/DL 2207) ALKALINE PHOSPHATASE (test 71 U/L code = 2204) SGOT (AST) (test code = 2218) 20 U/L SGPT (ALT) (test code = 2219) 12 U/L CBC W/AUTO [id number] 00:00:00 Test Item Value Reference Range Interpretation Comments WBC (test code = 1001) 7.0 K/UL RBC (test code = 1002) 4.41 M/UL HEMOGLOBIN (test code = 1003) 13.5 G/DL HEMATOCRIT (test code = 1004) 39.6 % MCV (test code = 1005) 89.8 fL MCH (test code = 1006) 30.6 PG MCHC (test code = 1007) 34.1 G/DL RDW (test code = 1038) 14.3 % NEUTROPHILS (test code = 1008) 59 % LYMPHOCYTES (test code = 1010) 33 % MONOCYTES (test code = 1011) 6 % EOSINOPHILS (test code = 1012) 1 % BASOPHILS (test code = 1013) % PLATELET COUNT (test code = 1015) 351 K/UL CBC W/AUTO [id number] 00:00:00 Test Item Value Reference Range Interpretation Comments WBC (test code = 1001) 7.0 K/UL RBC (test code = 1002) 4.41 M/UL HEMOGLOBIN (test code = 1003) 13.5 G/DL HEMATOCRIT (test code = 1004) 39.6 % MCV (test code = 1005) 89.8 fL MCH (test code = 1006) 30.6 PG MCHC (test code = 1007) 34.1 G/DL RDW (test code = 1038) 14.3 % NEUTROPHILS (test code = 1008) 59 % LYMPHOCYTES (test code = 1010) 33 % MONOCYTES (test code = 1011) 6 % EOSINOPHILS (test code = 1012) 1 % BASOPHILS (test code = 1013) % PLATELET COUNT (test code = 1015) 351 K/UL CBC W/AUTO [id number] 00:00:00 Test Item Value Reference Range Interpretation Comments WBC (test code = 1001) 7.0 K/UL RBC (test code = 1002) 4.41 M/UL HEMOGLOBIN (test code = 1003) 13.5 G/DL HEMATOCRIT (test code = 1004) 39.6 % MCV (test code = 1005) 89.8 fL MCH (test code = 1006) 30.6 PG MCHC (test code = 1007) 34.1 G/DL RDW (test code = 1038) 14.3 % NEUTROPHILS (test code = 1008) 59 % LYMPHOCYTES (test code = 1010) 33 % MONOCYTES (test code = 1011) 6 % EOSINOPHILS (test code = 1012) 1 % BASOPHILS (test code = 1013) % PLATELET COUNT (test code = 1015) 351 K/UL HEMOGLOBIN [id number] 00:00:00 Test Item Value Reference Range Interpretation Comments HEMOGLOBIN A1c (test code = 33294) 6.2 % HEMOGLOBIN [id number] 00:00:00 Test Item Value Reference Range Interpretation Comments HEMOGLOBIN A1c (test code = 28435) 6.2 % HEMOGLOBIN [id number] 00:00:00 Test Item Value Reference Range Interpretation Comments HEMOGLOBIN A1c (test code = 29123) 6.2 % THYROID II PROFILE (T3U, T4, T7, TSH)[id number] 00:00:00 Test Item Value Reference Range Interpretation Comments T3 UPTAKE (test code = 2817) 22.2 % T4 (THYROXINE) (test code = 2819) 3.2 UG/DL CALCULATED T7 (FTI) (test code = 0.71 2820) TSH (test code = 2821) 84.4 UIU/ML THYROID II PROFILE (T3U, T4, T7, TSH)[id number] 00:00:00 Test Item Value Reference Range Interpretation Comments T3 UPTAKE (test code = 2817) 22.2 % T4 (THYROXINE) (test code = 2819) 3.2 UG/DL CALCULATED T7 (FTI) (test code = 0.71 2820) TSH (test code = 2821) 84.4 UIU/ML LIPID [id number] 00:00:00 Test Item Value Reference Range Interpretation Comments CHOLESTEROL (test code = 2210) 276 MG/DL TRIGLYCERIDES (test code = 2232) 116 MG/DL HDL CHOLESTEROL (test code = 2220) 44 MG/DL CALCULATED LDL CHOL (test code = 209 MG/DL 2237) RISK RATIO LDL/HDL (test code = 4.75 RATIO 2238) LIPID [id number] 00:00:00 Test Item Value Reference Range Interpretation Comments CHOLESTEROL (test code = 2210) 276 MG/DL TRIGLYCERIDES (test code = 2232) 116 MG/DL HDL CHOLESTEROL (test code = 2220) 44 MG/DL CALCULATED LDL CHOL (test code = 209 MG/DL 2237) RISK RATIO LDL/HDL (test code = 4.75 RATIO 2238) COMPREHENSIVE METABOLIC [id number] 00:00:00 Test Item Value Reference Range Interpretation Comments GLUCOSE (test code = 2217) 86 MG/DL BUN (test code = 2208) 14 MG/DL CREATININE (test code = 2214) 0.8 MG/DL eGFR AMER. (test code 93 ML/MIN/1.73 = 56911) eGFR NON- AMER. (test 77 ML/MIN/1.73 code = 45111) CALCULATED BUN/CREAT (test 18 RATIO code = 2235) SODIUM (test code = 2231) 139 MEQ/L POTASSIUM (test code = 2228) 4.2 MEQ/L CHLORIDE (test code = 2215) 103 MEQ/L CARBON DIOXIDE (test code = 25 MEQ/L 2205) CALCIUM (test code = 2209) 9.7 MG/DL PROTEIN, TOTAL (test code = 7.6 G/DL 2228) ALBUMIN (test code = 2201) 4.6 G/DL CALCULATED GLOBULIN (test code 3.0 G/DL = 2240) CALCULATED A/G RATIO (test 1.5 RATIO code = 2234) BILIRUBIN, TOTAL (test code = 0.6 MG/DL 2206) ALKALINE PHOSPHATASE (test 71 U/L code = 2204) SGOT (AST) (test code = 2218) 20 U/L SGPT (ALT) (test code = 2219) 12 U/L CBC W/AUTO [id number] 00:00:00 Test Item Value Reference Range Interpretation Comments WBC (test code = 1001) 7.0 K/UL RBC (test code = 1002) 4.41 M/UL HEMOGLOBIN (test code = 1003) 13.5 G/DL HEMATOCRIT (test code = 1004) 39.6 % MCV (test code = 1005) 89.8 fL MCH (test code = 1006) 30.6 PG MCHC (test code = 1007) 34.1 G/DL RDW (test code = 1038) 14.3 % NEUTROPHILS (test code = 1008) 59 % LYMPHOCYTES (test code = 1010) 33 % MONOCYTES (test code = 1011) 6 % EOSINOPHILS (test code = 1012) 1 % BASOPHILS (test code = 1013) % PLATELET COUNT (test code = 1015) 351 K/UL CBC W/AUTO [id number] 00:00:00 Test Item Value Reference Range Interpretation Comments WBC (test code = 1001) 7.0 K/UL RBC (test code = 1002) 4.41 M/UL HEMOGLOBIN (test code = 1003) 13.5 G/DL HEMATOCRIT (test code = 1004) 39.6 % MCV (test code = 1005) 89.8 fL MCH (test code = 1006) 30.6 PG MCHC (test code = 1007) 34.1 G/DL RDW (test code = 1038) 14.3 % NEUTROPHILS (test code = 1008) 59 % LYMPHOCYTES (test code = 1010) 33 % MONOCYTES (test code = 1011) 6 % EOSINOPHILS (test code = 1012) 1 % BASOPHILS (test code = 1013) % PLATELET COUNT (test code = 1015) 351 K/UL
[2023-07-17 14:15] LABS: Hematocrit 41.2 % (36.0-45.0); Lymphocytes % 21.5 % (15.3-44.8); MCV 82.8 fL (80-100); MPV 7.2 fL (7.6-11.3); Platelets 222 thou/uL (152-406); RBC Red Blood Cell Count 4.98 M/uL (3.86-4.86)
[2023-07-17 14:17] LABS: Protime INR 0.98
--- NOTE | 2023-07-17 14:25 | RAD REPORT ---
EXAM DESCRIPTION: RAD - Chest Single View - 07/17/2023 2:16 pm CLINICAL HISTORY: COUGH Chest pain. COMPARISON: Chest Pa And Lat (2 Views) dated 06/09/2018; Chest Single View dated 01/12/2018 FINDINGS: Portable technique limits examination quality. The lungs are grossly clear. The heart is normal in size. No displaced fractures.Right axillary surgi kim clips. IMPRESSION: No acute intrathoracic process suspected.
[2023-07-17 14:44] LABS: Bilirubin Direct 0.2 mg/dL (0-0.2); Bilirubin Indirect, Calculated 0.4 mg/dL (0.2-0.8); Bilirubin Total 0.6 mg/dL (0.2-1.0); Magnesium 2.1 mg/dL (1.6-2.4); Protein, Total 8.1 g/dL (6.4-8.2); Troponin High Sensitivity 13.1 pg/mL (<58.9)
[2023-07-17 14:46] LABS: Potassium 2.4 mEq/L (3.5-5.1)
[2023-07-17 15:05] LABS: SARS-COV-2 RT PCR NEGATIVE (NEGATIVE)
--- NOTE | 2023-07-17 15:05 | RAD REPORT ---
EXAM DESCRIPTION: CT - Head Brain Wo Cont - 07/17/2023 2:59 pm CLINICAL HISTORY: SYNCOPE Headache, drowsiness, fever COMPARISON: Head Brain W/Wo Con dated 02/21/2019 TECHNIQUE: All CT scans are performed using dose optimization technique as appropriate and may inclu de automated exposure control or mA/KV adjustment according to patient size. FINDINGS: No intracranial hemorrhage, hydrocephalus or extra-axial fluid collection.No areas of brai n edema or evidence of midline shift. The paranasal sinuses and mastoids are clear. The calvarium is intact. IMPRESSION: No acute intracranial abnormality.
--- NOTE | 2023-07-17 15:40 | ER ---
Nurse's Notes [facility] Name: Nona Nair Age: 53 yrs Sex: Female : 1970 Arrival Date: 07/17/2023 Time: 13:11 Bed 19 Private MD: Diagnosis: Influenza, upper respiratory infection, syncope Presentation: 07/17 13:18 Chief complaint: EMS states: toned out to workplace for dizziness/lightheadedness and eh3 tingling in left arm Pt sat down to avoid falling. Pt states she was sick the past 3 days with tmax 106, cough, sore throat, congestion and tried to go back to work today. Coronavirus screen: Vaccine status: Patient reports being unvaccinated. Ebola Screen: No symptoms or risks identified at this time. Initial Sepsis Screen: Does the patient meet any 2 criteria? No. Patient's initial sepsis screen is negative. Initial Sepsis Screen: No. Patient's initial sepsis screen is negative. Does the patient have a suspected source of infection? Yes: Productive cough/pneumonia. Risk Assessment: Do you want to hurt yourself or someone else? Patient reports no desire to harm self or others. Onset of symptoms was July 17, 2023. 13:18 Method Of Arrival: EMS: [facility] 3 13:18 Acuity: ESTELA 3 3 13:18 Care prior to arrival: Glucose check: 133. 3 Triage Assessment: 13:20 General: Appears in no apparent distress. uncomfortable, Behavior is calm, cooperative, eh3 appropriate for age. Pain: Denies pain. 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 Speech is normal, Facial symmetry appears normal, Pupils are PERRLA, Intact Reports dizziness, paresthesias in left arm. Cardiovascular: Capillary refill < 3 seconds Patient's skin is warm and dry. Respiratory: Airway is patent Respiratory effort is even, unlabored, Respiratory pattern is regular, symmetrical. GI: Abdomen is round non-distended. Derm: Skin is pink, warm \T\ dry. Musculoskeletal: Circulation, motion, and sensation intact. 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 - Social history:: Smoking status: Patient reports the use of cigarette tobacco products, smokes one-half pack cigarettes per day, Patient uses alcohol, but reports only rare drinking. Screenin:20 [facility] ED Fall Risk Assessment (Adult) Score/Fall Risk Level 0 - 2 = Low Risk. Abuse eh3 screen: Denies threats or abuse. Denies injuries from another. Nutritional screening: No deficits noted. Tuberculosis screening: No symptoms or risk factors identified. Assessment: 13:20 Reassessment: No changes from previously documented assessment. See triage assessment. 3 14:46 Reassessment: No changes from previously documented assessment. Patient and/or family eh3 updated on plan of care and expected duration. Pain level reassessed. 15:55 Reassessment: No changes from previously documented assessment. Patient and/or family ll1 updated on plan of care and expected duration. Pain level reassessed. Patient is alert, oriented x 3, equal unlabored respirations, skin warm/dry/pink. Patient states feeling better. Patient states symptoms have improved. Vital Signs: 13:18 BP 138 / 76; Pulse 60; Resp 18; Temp 98.3; Pulse Ox 99% on R/A; Weight 62.6 kg; Height 3 5 ft. 4 in. ; Pain 5/10; 14:30 BP 120 / 56; Pulse 62; Resp 18; Pulse Ox 96% on R/A; ll1 15:55 BP 116 / 66; Pulse 62; Resp 17; Pulse Ox 99% on R/A; ll1 13:18 Body Mass Index 23.69 (62.60 kg, 162.56 cm) [facility] 13:18 Pain Scale: Adult [facility] ED Course: 13:18 Patient arrived in ED. 3 13:20 Triage completed. 3 13:20 Arm band placed on. 3 13:20 Patient has correct armband on for positive identification. Bed in low position. Call eh3 light in reach. Side rails up X2. Adult w/ patient. Provided Education on: use of call russo. Pulse ox on. NIBP on. 13:26 Shonda Leyva, RN is Primary Nurse. eh3 13:43 Savanah Caraballo MD is Attending Physician. sp3 14:00 Inserted saline lock: 22 gauge in left forearm, using aseptic technique. Blood eh3 collected. 14:18 XRAY Chest (1 view) In Process Unspecified. EDMS 14:46 Notified ED physician of a critical lab result(s). K 2.4. eh3 15:01 CT Head Brain wo Cont In Process Unspecified. EDMS 15:56 No provider procedures requiring assistance completed. IV discontinued, intact, ll1 bleeding controlled, No redness/swelling at site. Pressure dressing applied. Administered Medications: No medications were administered Medication: 15:56 VIS not applicable for this client. ll1 Outcome: 15:39 Discharge ordered by . sp3 15:56 Discharged to home ambulatory, ll1 15:56 Condition: stable 15:56 Discharge instructions given to patient, family, Instructed on discharge instructions, follow up and referral plans. Demonstrated understanding of instructions, follow-up care, 15:56 Patient left the ED. ll1 Signatures: Dispatcher [employer] EDMS Maryam Tidwell RN RN 1 Savanah Caraballo MD MD 3 Shonda Leyva, RN RN eh3 Corrections: (The following items were deleted from the chart) 13:23 13:20 PSHx: mastectomy; eh3 eh3 13:25 13:18 Chief complaint: EMS states: toned out to workplace for eh3 dizziness/lightheadedness. Pt sat down to avoid falling. Pt states she was sick the past 3 days with tmax 106, cough, sore throat, congestion and tried to go back to work today eh3
--- NOTE | 2023-07-17 15:40 | EDPHYS ---
Physician Documentation [facility] Name: Nona Nair Age: 53 yrs Sex: Female : 1970 Arrival Date: 07/17/2023 Time: 13:11 Bed 19 Private MD: ED Physician Savanah Caraballo HPI: 07/17 13:55 This 53 yrs old Female presents to ER via EMS with complaints of Dizziness. sp3 13:55 53-year-old female with a history of breast cancer now 5 years in remission, sp3 hypothyroidism, hypertension, hyperlipidemia, borderline diabetes now presents to the ED with chief complaint of syncope while at work after recent 3 to 4 days of upper respiratory infection symptoms including fever. Patient states she is try to get to work a bit earlier than she wanted to and may not have been fully improved from her "cold". Patient states she has had a fever of Tmax 106 along with upper respiratory symptoms including congestion and cough. She denies any known sick contacts or travel history. On review of systems she denies headache, neck pain, chest pain, shortness of breath, abdominal pain, vomiting, diarrhea, rash, bleeding, or any other signs or symptoms at this time. Patient did not have traumatic fall after the syncopal episode as she was surrounded by coworkers. She denies current headache or any prodrome prior to the syncope. Patient states she has had plenty of fluids over the last couple of days and endorses baseline urine output.. 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 - Social history:: Smoking status: Patient reports the use of cigarette tobacco products, smokes one-half pack cigarettes per day, Patient uses alcohol, but reports only rare drinking. ROS: 13:56 Eyes: Negative for injury, pain, redness, and discharge, ENT: Negative for injury, sp3 pain, and discharge, Neck: Negative for injury, pain, and swelling, Cardiovascular: Negative for chest pain, palpitations, and edema, Abdomen/GI: Negative for abdominal pain, nausea, vomiting, diarrhea, and constipation, Back: Negative for injury and pain, MS/Extremity: Negative for injury and deformity, Skin: Negative for injury, rash, and discoloration, Psych: Negative for depression, anxiety, suicide ideation, homicidal ideation, and hallucinations, Allergy/Immunology: Negative for hives, rash, and allergies, Endocrine: Negative for neck swelling, polydipsia, polyuria, polyphagia, and marked weight changes, 13:56 All other systems are negative, Exam: 13:59 Constitutional: This is a well developed, well nourished patient who is awake, alert, sp3 and in no acute distress. Head/Face: Normocephalic, atraumatic. Eyes: Pupils equal round and reactive to light, extra-ocular motions intact. Lids and lashes normal. Conjunctiva and sclera are non-icteric and not injected. Cornea within normal limits. Periorbital areas with no swelling, redness, or edema. ENT: Nares patent. No nasal discharge, no septal abnormalities noted. External auditory canals are clear. Oropharynx with no redness, swelling, or masses, exudates, or evidence of obstruction, uvula midline. Mucous membranes moist. Neck: Trachea midline, no thyromegaly or masses palpated, and no cervical lymphadenopathy. Supple, full range of motion without nuchal rigidity, or vertebral point tenderness. No Meningismus. Chest/axilla: Normal chest wall appearance and motion. Nontender with no deformity. No lesions are appreciated. Cardiovascular: Regular rate and rhythm with a normal S1 and S2. No gallops, murmurs, or rubs. Normal PMI, no JVD. No pulse deficits. Respiratory: Lungs have equal breath sounds bilaterally, clear to auscultation and percussion. No rales, rhonchi or wheezes noted. No increased work of breathing, no retractions or nasal flaring. Abdomen/GI: Soft, non-tender, with normal bowel sounds. No distension or tympany. No guarding or rebound. No evidence of tenderness throughout. Back: No spinal tenderness. No costovertebral tenderness. Full range of motion. Skin: Warm, dry with normal turgor. Normal color with no rashes, no lesions, and no evidence of cellulitis. MS/ Extremity: Pulses equal, no cyanosis. Neurovascular intact. Full, normal range of motion. Neuro: Awake and alert, GCS 15, oriented to person, place, time, and situation. Cranial nerves II-XII grossly intact. Motor strength 5/5 in all extremities. Sensory grossly intact. Cerebellar exam normal. Normal gait. Psych: Awake, alert, with orientation to person, place and time. Behavior, mood, and affect are within normal limits. 14:25 ECG was reviewed by the Attending Physician. EKG demonstrates normal sinus rhythm at 63 sp3 bpm with normal intervals, normal QRS, slightly leftward axis and nonspecific diffuse ST/T changes without evidence of acute ischemia. Vital Signs: 13:18 BP 138 / 76; Pulse 60; Resp 18; Temp 98.3; Pulse Ox 99% on R/A; Weight 62.6 kg; Height eh3 5 ft. 4 in. ; Pain 5/10; 14:30 BP 120 / 56; Pulse 62; Resp 18; Pulse Ox 96% on R/A; ll1 15:55 BP 116 / 66; Pulse 62; Resp 17; Pulse Ox 99% on R/A; ll1 13:18 Body Mass Index 23.69 (62.60 kg, 162.56 cm) 3 13:18 Pain Scale: Adult eh3 MDM: 13:49 Patient medically screened. sp3 14:00 Data reviewed: vital signs, nurses notes, lab test result(s), EKG, radiologic studies. sp3 ED course: 53-year-old female with PMH above now with syncope post URI. Differential diagnosis includes viral syndrome, influenza, COVID-19, and to a less likelihood acute coronary syndrome, cerebral pathology, dehydration, electrolyte abnormality, among others. I am not highly suspicious for TIA/CVA spectrum, infection to the point of sepsis, shock, or any other critical process at this time. Work-up will include CT scan of the head, chest x-ray, EKG, laboratory values and general viral swabs. Disposition pending work-up and patient course with likely discharge home if work-up is negative.. 15:39 ED course: Laboratory values indicate dehydration with mild bump in creatinine. Flu is sp3 also positive. CT scan of the head is negative as is chest x-ray. Given these findings and patient's improvement, we will safely discharge patient home at this time.. 07/17 13:49 Order name: Basic Metabolic Panel; Complete Time: 15:12 sp3 07/17 13:49 Order name: CBC with Diff; Complete Time: 15:12 sp3 07/17 13:49 Order name: LFT's; Complete Time: 15:12 sp3 07/17 13:49 Order name: Magnesium; Complete Time: 15:12 sp3 07/17 13:49 Order name: NT PRO-BNP; Complete Time: 15:12 sp3 07/17 13:49 Order name: PT-INR; Complete Time: 15:12 sp3 07/17 13:49 Order name: Troponin HS; Complete Time: 15:12 sp3 07/17 13:49 Order name: COVID-19/FLU A+B/RSV; Complete Time: 15:38 sp3 07/17 13:49 Order name: XRAY Chest (1 view); Complete Time: 15:12 3 07/17 13:54 Order name: CT Head Brain wo Cont; Complete Time: 15:12 sp3 07/17 13:49 Order name: EKG; Complete Time: 13:50 sp3 07/17 13:49 Order name: Cardiac monitoring; Complete Time: 13:52 sp3 07/17 13:49 Order name: EKG - Nurse/Tech; Complete Time: 14:17 sp3 07/17 13:49 Order name: IV Saline Lock; Complete Time: 14:05 sp3 07/17 13:49 Order name: Labs collected and sent; Complete Time: 14:05 sp3 07/17 13:49 Order name: O2 Per Protocol; Complete Time: 13:52 sp3 07/17 13:49 Order name: O2 Sat Monitoring; Complete Time: 13:52 sp3 Administered Medications: No medications were administered Disposition Summary: 07/17/23 15:39 Discharge Ordered Notes: Location: Home sp3 Condition: Stable sp3 Diagnosis - Influenza, upper respiratory infection, syncope sp3 Followup: sp3 - With: Private Physician - When: Upon discharge from the Emergency Department - Reason: Continuance of care Discharge Instructions: - Discharge Summary Sheet sp3 - Influenza, Adult sp3 Forms: - Medication Reconciliation Form sp3 - Thank You Letter sp3 - Antibiotic Education sp3 - Prescription Opioid Use sp3 - Patient Portal Instructions sp3 - Leadership Thank You Letter sp3 Signatures: Dispatcher [employer] EDSavanah Cole MD MD sp3 Shonda Leyva RN RN 3 Corrections: (The following items were deleted from the chart) 13:23 13:20 PSHx: mastectomy; 3 3
[2023-07-17 16:09] VITALS: TEMP 98.3
[2023-07-17 16:21] VITALS: BP 120/56; O2SAT 96
== END 2023-07-17 15:56 | disposition home or self-care (01) ==
LOC: ER 13:11
DX: J11.1 Influenza due to unidentified influenza virus with other respiratory manifestations (principal); Z11.52 Encounter for screening for COVID-19
CPT/HCPCS: 0241U; 36415; 70450; 71045; 80048; 80076; 83735; 83880; 84484; 85025; 85610; 93005; 99284